=== PATIENT | male | born 1950 | race Caucasian/White ===

== ENCOUNTER 2019-09-08 08:28 | Outpatient (CLI) | payer MEDICARE, SELFPAY ==
--- NOTE | 2019-09-08 | EST_ITS ---
Patient Info Name: Derrek Rhoades Age: 68 years : 1950 Gender: Male Ht: 71 in Wt: 245 lbs BSA: 2.40 m2 Exam Date: 09/08/2019 9:35 AM Exam Location: [facility] Stress Patient Status: Outpatient Admit Date: 09/08/2019 Staff Ordering Physician: Doreen, Clarke Lyons MD Attending Provider: Doreen, Clarke Lyons MD Exercise Technologist: Karol Wilson RDCS Exercise Physician: Luis Fernando Montano DO Exam Type: CA stress cory w NM Study Info Indications Z01.818 - Encounter for other preprocedural examination R06.02 - Shortness of breath A regadenoson stress test was performed. Summary 1. 1. Negative lexiscan stress test for ischemic ST changes by ECG criteria. 2. 2. Stable hemodynamics throughout the test. 3. 3. Nuclear scan to follow and will be reported separately. Please correlate with it. 4. 4. Patient informed of the above results. Protocol: Lexiscan Stress ECG Details Stage: REST Duration (min): 4 min : 35 sec HR (bpm): 53 SBP (mmHg): 103 DBP (mmHg): 65 Stage: REST Duration (min): 9 min : 38 sec HR (bpm): 53 SBP (mmHg): 103 DBP (mmHg): 65 Stage: STAGE 1 Duration (min): 1 min : 0 sec HR (bpm): 58 SBP (mmHg): 126 DBP (mmHg): 73 Stage: RECOVERY Duration (min): 1 min : 0 sec HR (bpm): 66 SBP (mmHg): 111 DBP (mmHg): 66 Stage: RECOVERY Duration (min): 2 min : 0 sec HR (bpm): 61 SBP (mmHg): 111 DBP (mmHg): 66 Stage: RECOVERY Duration (min): 3 min : 0 sec HR (bpm): 61 SBP (mmHg): 112 DBP (mmHg): 62 Stage: RECOVERY Duration (min): 3 min : 4 sec HR (bpm): 60 SBP (mmHg): 112 DBP (mmHg): 62 Rest HR: 53 bpm Peak HR: 66 bpm Rest Sys BP: 103 mmHg Peak Sys BP: 126 mmHg Max Pred HR: 154 bpm % Max Pred HR: 43 % Target HR: 131 bpm Max RPP: 8,316 bpm*mmHg Termination Reason: Completed protocol Cardiac Symptoms: Shortness of breath Total Time: 1 min : 0 sec Rest Koch BP: 65 mmHg Peak Koch BP: 73 mmHg Total Dose: 0.4 mg Resting ECG Sinus bradycardia, ST elevation in diffuse leads- probably early repolarization abnormality. Stress ECG No ST changes. Arrhythmias None. Report Signatures
--- NOTE | ~2019-09-08 | NM_ITS ---
EXAMINATION: NM cory stress w perfusion DATE: 09/08/2019 11:22 INDICATION: Shortness of breath TECHNIQUE: Rest images were obtained following intravenous administration of 9.8 mCi Tc99m tetrofosmi n (Myoview). The patient was infused intravenously with Lexiscan (Regadenoson). Then, 29.8 mCi Tc99m tetrofosmin (Myoview) was administered intravenously, and stress images were obtained. Data was recon structed into short axis and horizontal and vertical long axis SPECT images. Gated SPECT images were also obtained. COMPARISON: None. FINDINGS: There is no definite reversible or fixed perfusion abnormality to suggest ischemia or infar ction. There is normal left ventricular chamber size, wall motion and ejection fraction. Left ventr icular ejection fraction measures >70%. IMPRESSION: 1. Normal myocardial perfusion at rest and during stress. 2. Left ventricular ejection fraction measuring >70%. Reviewed, dictated and finalized at location A.
== END 2019-09-08 08:29 | disposition home or self-care (01) ==
PROVIDERS: PCP Internal Medicine; Visit Provider Orthopaedic Surgery
DX: Z01.818 Encounter for other preprocedural examination (principal); R06.02 Shortness of breath
CPT/HCPCS: 78452; 93017; A9502; J2785

== ENCOUNTER 2020-01-15 11:02 | Emergency (ER) | payer MEDICARE, SELFPAY ==
--- NOTE | ~2020-01-15 | XR_ITS ---
EXAMINATION: XR ribs RT 2V w CXR 2V DATE: 01/15/2020 11:25 INDICATION: Right chest pain. Fall. TECHNIQUE: Frontal and lateral views of the chest and 3 views of the right ribs were obtained. COMPARISON: Chest single view 02/18/2014, chest CT 07/29/2017 FINDINGS: CHEST TWO VIEWS: There is mild atelectasis in left lower lung zone. No pleural effusion or pneumothor ax. The heart size is normal. There are changes of posterior fusion procedure in thoracolumbar spine. Epidural electrodes are noted. There is a filter in the inferior vena cava. A catheter overlies the spine. RIGHT RIBS: There is a fracture of right sixth rib. IMPRESSION: 1. Right sixth rib fracture. Reviewed, dictated and finalized at location A.
[2020-01-15 11:14] VITALS: BP 115/57; PULSE 65; RESP 20; TEMP 36.7; O2SAT 99
--- NOTE | 2020-01-15 11:19 | ED.GENADULT ---
HPI - General Adult General Chief complaint: Extremity Injury, Lower Stated complaint: Fell rib pain Time Seen by Provider: 01/15/20 11:20 Source: patient and RN notes reviewed Mode of arrival: ambulatory Limitations: no limitations History of Present Illness HPI narrative: 39-year-old male presents with complaint of right rib cage pain caused by tripping over his dog and falling for the past 4 days. Derrek says he tripped over his dog hitting RT side and pain has increased throughout the last 24 hours after coughing. No treatment. Denies difficulty breathing or cough. No bruising. No deformity. Exacerbating factors consist of taking a deep breath. Relieving factor consist of resting. No cardiac chest pain, wheezing, or shortness of breath. Denies hitting head or loss consciousness. Denies syncopal, abdominal pain, nausea, and vomiting. Tolerating intake well. Remains active. The patient reports he have not been diagnosed with COVID-19. The patient reports he is not waiting for the results of a COVID-19 lab test. The patient reports he do not have fever, chills, weakness, or fatigue. The patient reports he do not have a new or worsening cough or shortness of breath. The patient reports he do not have any rhinorrhea, congestion, loss of taste, sore throat, and diarrhea. Denies recent traveling. Denies concerns for COVID-19 or exposures been home with limited outdoor exposure except for essential household needs and return home. At this time, patient is not suspected of having COVID-19. Some parts of this dictation were generated by voice recognition software and may contain typographical and/or grammatical inaccuracies. Related Data Home Medications Medication Instructions Recorded Confirmed warfarin 4 mg tablet 4 mg PO .QOD tablet 04/19/19 01/08/20 baclofen 10 mg PO PRN 01/15/20 01/15/20 Allergies Allergy/AdvReac Type Severity Reaction Status Date / Time morphine AdvReac Severe Nausea and Verified 01/08/20 09:20 Vomiting adhesive tape AdvReac Intermediate SKIN TURNS Verified 01/08/20 09:20 RED Review of Systems Review of Systems: Narrative: CONSTITUTIONAL: Denies fever, chills, sweats. EYES: Denies visual changes, redness, discharge. ENT: Denies rhinorrhea, congestion, sore throat, otalgia. CARDIOVASCULAR: Denies chest pain, palpitations, edema. RESPIRATORY: Denies dyspnea, wheezing, cough. GASTROINTESTINAL: Denies abdominal pain, nausea, vomiting, diarrhea. GENITOURINARY: Denies dysuria, hematuria, abnormal discharge. SKIN: Denies rash or itching. MUSCULOSKELETAL: Denies acute back pain, joint pain, myalgia. Complains of acute right rib cage tenderness. NEUROLOGIC: Denies numbness or focal weakness. PSYCHIATRIC: Denies anxiety or depression. All systems reviewed & are unremarkable except as noted in HPI and below. FOR[facility]LY [facility] Past Medical History Medical History (Updated 01/16/20 @ 00:00 by [facility]) Dorsalgia History of pulmonary embolism Hx of colonic polyp Hyperlipidemia Hypertension MILO (obstructive sleep apnea) Other pulmonary embolism without acute cor pulmonale Type 2 diabetes mellitus Surgical History Surgical History (Updated 01/15/20 @ 11:31 by ALYSE Hutson) History of back surgery History of knee surgery RT arthroplasty Family History Family History (Updated 01/15/20 @ 11:32 by ALYSE Hutson) Father , @67 from [place] Acute myocardial infarction Patient's father is Diabetes mellitus Mother Family history of malignant neoplasm Patient's mother is Family history of arthritis Sibling Malignant neoplasm of prostate Social History Social History (Updated 01/15/20 @ 11:32 by ALYSE Hutson) Smoking packs per day: 1 Smoking cigarettes per day: 20.0 Years smoked: 20 Smoking pack-years: 20.00 Smoking status: Former smoker Tobacco type: cigarettes Second hand tobacco smoke
== END 2020-01-15 11:46 | disposition home or self-care (01) ==
PROVIDERS: Emergency Provider Nurse Practitioner Family; PCP Internal Medicine
DX: S22.31XA Fracture of one rib, right side, initial encounter for closed fracture (principal); W01.0XXA Fall on same level from slipping, tripping and stumbling without subsequent striking against object, initial encounter; E78.5 Hyperlipidemia, unspecified; I10 Essential (primary) hypertension; G47.33 Obstructive sleep apnea (adult) (pediatric); E11.9 Type 2 diabetes mellitus without complications; Z86.711 Personal history of pulmonary embolism; Z87.891 Personal history of nicotine dependence; Z79.01 Long term (current) use of anticoagulants
CPT/HCPCS: 71046; 71100; 99213; G0463

== ENCOUNTER 2020-05-30 11:50 | Outpatient (CLI) | payer MEDICARE, SELFPAY | END 2020-05-30 11:51 | disposition home or self-care (01) | LOC: ANHCOVIDVC 11:51 | PROVIDERS: PCP Internal Medicine | DX: Z23 Encounter for immunization (principal) | CPT/HCPCS: 0001A; 91300 ==

== ENCOUNTER 2020-06-20 11:41 | Outpatient (CLI) | payer MEDICARE, SELFPAY | END 2020-06-20 11:42 | disposition home or self-care (01) | LOC: ANHCOVIDVC 11:41 | PROVIDERS: PCP Internal Medicine | DX: Z23 Encounter for immunization (principal) | CPT/HCPCS: 0002A; 91300 ==

== ENCOUNTER → 2021-01-14 04:14 | Outpatient (CLI) | payer MEDICARE, SELFPAY ==
[2021-01-14 11:21] LABS: Influenza Control Positive
[2021-01-15 19:26] LABS: SARS-CoV-2 RNA PCR Negative
== END ==
PROVIDERS: PCP Internal Medicine; Visit Provider Internal Medicine
DX: Z20.822 Contact with and (suspected) exposure to COVID-19 (principal)
CPT/HCPCS: 87804; C9803; U0003; U0005

== ENCOUNTER → 2021-03-03 10:12 | Outpatient (CLI) | payer MEDICARE, SELFPAY ==
[2021-03-03 19:11] LABS: SARS-CoV-2 RNA PCR Positive
== END ==
PROVIDERS: PCP Internal Medicine; Visit Provider Internal Medicine
DX: U07.1 COVID-19 (principal)
CPT/HCPCS: C9803; U0003; U0005

== ENCOUNTER 2021-03-06 07:33 | Outpatient (RCR) | payer MEDICARE, SELFPAY ==
[2021-03-06 08:08] VITALS: BP 132/71; PULSE 51; RESP 16; TEMP 36.2; O2SAT 96
[2021-03-06] MEDS: FAMOTIDINE 20 MG TABLET PO (08:13)
[2021-03-06] MEDS: ACETAMINOPHEN 325 MG TABLET 650 MG PO (08:13)
[2021-03-06] MEDS: diphenhydrAMINE HCl CAP 25 MG CAPSULE PO (08:13)
[2021-03-06 09:44] VITALS: BP 117/72
--- NOTE | 2021-03-07 08:45 | PC.NURSE ---
Called Mr Rhoades, he stated he feels great and has no questions for us.
== END 2021-03-06 17:00 ==
LOC: AMCINF 07:33
PROVIDERS: PCP Internal Medicine; Visit Provider Internal Medicine Hematology & Oncology
DX: U07.1 COVID-19 (principal)
CPT/HCPCS: A9270; M0245; Q0245

== ENCOUNTER 2022-03-10 13:45 | Outpatient (CLI) | payer OTHER, SELFPAY ==
[2022-03-10 14:32] LABS: Influenza A QL RT-PCR Negative (Negative); Influenza B QL RT-PCR Negative (Negative); SARS-CoV-2 RNA PCR Negative
== END 2022-03-10 13:46 | disposition home or self-care (01) ==
LOC: ANHLAB 13:46
PROVIDERS: PCP Internal Medicine; Visit Provider Internal Medicine
DX: R50.9 Fever, unspecified (principal); Z20.822 Contact with and (suspected) exposure to COVID-19
CPT/HCPCS: 87636

== ENCOUNTER 2022-10-12 18:48 | Emergency (ER) | payer OTHER, SELFPAY ==
--- NOTE | ~2022-10-12 | XR_ITS ---
EXAM: XR shoulder RT min 2V DATE: 10/12/2022 19:17 HISTORY: FALL TODAY, LIMITED ROM . COMPARISON: None available. FINDINGS: Normal mineralization. No fracture or dislocation. No lytic or blastic lesion. Moderate AC joint and glenohumeral joint degenerative change. No erosion or periosteal change. Soft tissues with in normal limits. IMPRESSION: No acute osseous finding in the right shoulder. Reviewed, dictated and finalized at location K.
[2022-10-12 19:00] VITALS: BP 151/76; PULSE 70; RESP 20; TEMP 36.9; O2SAT 97
--- NOTE | 2022-10-12 19:25 | ED.UPPEXIN ---
HPI - Extremity Injury (Upper) General Chief Complaint: Extremity Injury, Upper Stated Complaint: right shoulder injury Time Seen by Provider: 10/12/22 19:10 Source: patient, family () and RN notes reviewed Mode of arrival: ambulatory Limitations: no limitations History of Present Illness HPI narrative: Patient presents today complaining of right shoulder pain. He fell while in his garage today around 3:30 p.m. onto an outstretched hand. Denies head injury or loss of consciousness. Denies numbness or tingling in the arm or hand. He currently rates his pain 9/10. He has taken to prescription pain pills from a family member that he does not know the name of, and has applied a pain patch. Related Data Home Medications Medication Instructions Recorded Confirmed melatonin 10 mg tablet 20 mg PO HS PRN Insomnia 10/09/22 10/12/22 rosuvastatin 5 mg tablet 5 mg PO HS 10/09/22 10/12/22 Allergies Allergy/AdvReac Type Severity Reaction Status Date / Time adhesive tape Allergy Intermediate SKIN TURNS Verified 10/09/22 13:53 RED morphine AdvReac Severe Nausea and Verified 10/09/22 13:53 Vomiting Review of Systems Review of Systems: CONSTITUTIONAL: Denies body aches, fever, chills, or sweats. EYES: Denies visual changes, redness, or discharge. ENT: Denies rhinorrhea, congestion, sore throat, or otalgia. CARDIOVASCULAR: Denies chest pain, palpitations, or edema. RESPIRATORY: Denies cough or dyspnea. GASTROINTESTINAL: Denies abdominal pain, nausea, vomiting, or diarrhea. GENITOURINARY: Denies dysuria or hematuria. SKIN: Denies rash, itching, or wounds. MUSCULOSKELETAL: Denies back pain, or myalgia.+ right shoulder pain NEUROLOGIC: Denies headache, numbness, tingling, or weakness. PSYCH: Denies depression or anxiety. FORMERLY [facility] Past Medical History Medical History Dorsalgia History of pulmonary embolism Hx of colonic polyp Hyperlipidemia Hypertension MILO (obstructive sleep apnea) Other pulmonary embolism without acute cor pulmonale Type 2 diabetes mellitus Surgical History Surgical History History of back surgery History of knee surgery RT arthroplasty Family History Family History Father , @67 from [place] Acute myocardial infarction Patient's father is Diabetes mellitus Mother Family history of malignant neoplasm Patient's mother is Family history of arthritis Sibling Malignant neoplasm of prostate Social History Social History Smoking packs per day: 1.5 Smoking cigarettes per day: 30.0 Years smoked: 20 Smoking pack-years: 30.00 Smoking status: Former smoker Tobacco type: cigarettes Second hand tobacco smoke exposure: No Smoking end date: 03/29/99 Alcohol intake: never Substance use: never Substance use type: does not use Lack of Transportation: No Lack of Food: Never True Current Housing: I Have Housing Concerned About Future Housing: No Difficulty Paying Gas/Electric Bills: No Difficulty Paying for Meds: No Currently Unemployed: No Education: Trade/Vocational Certificate Difficulty w/ Childcare or Family Care: No Living arrangements: with family Occupation/Education: retired Gender identity (if verbalized by the patient): Male Sexual Orientation (if Verbalized by the Patient): Straight or Heterosexual Spiritual care concerns: No Comments At time of signature, I have reviewed and agree with nursing past medical, surgical, social and family history unless otherwise noted. Please see nursing chart for further information. There is no relevant family history pertinent to the presenting complaint Exam Narrative: GENERAL: Well-appearing, well-nourished, and
== END 2022-10-12 19:50 | disposition home or self-care (01) ==
PROVIDERS: Emergency Provider Nurse Practitioner; PCP Internal Medicine
DX: S49.91XA Unspecified injury of right shoulder and upper arm, initial encounter (principal); W19.XXXA Unspecified fall, initial encounter; E78.5 Hyperlipidemia, unspecified; I10 Essential (primary) hypertension; E11.9 Type 2 diabetes mellitus without complications; Z86.711 Personal history of pulmonary embolism
CPT/HCPCS: 73030; 99213; G0463

== ENCOUNTER 2022-10-21 02:33 | Day surgery (SDC) | payer OTHER, SELFPAY ==
[2022-10-09 13:46] VITALS: BMI 33.8
--- NOTE | 2022-10-20 20:17 | PM.HPGS ---
History of Present Illness History of Present Illness Consent: Risks, benefits, and alternatives have been discussed and questions answered. Patient agrees to proceed with procedure. Chief complaint: neoplasm screening Narrative: Derrek Rhoades III is a 71 year old male who is referred for colon cancer screening. Review of Systems Review of Systems: All systems reviewed & are unremarkable except as noted in HPI and below PMFSH Past Medical History Medical History Dorsalgia History of pulmonary embolism Hx of colonic polyp Hyperlipidemia Hypertension MILO (obstructive sleep apnea) Other pulmonary embolism without acute cor pulmonale Type 2 diabetes mellitus Surgical History Surgical History History of back surgery History of knee surgery RT arthroplasty Family History Family History Father , @67 from [place] Acute myocardial infarction Patient's father is Diabetes mellitus Mother Family history of malignant neoplasm Patient's mother is Family history of arthritis Sibling Malignant neoplasm of prostate Social History Social History Smoking packs per day: 1.5 Smoking cigarettes per day: 30.0 Years smoked: 20 Smoking pack-years: 30.00 Smoking status: Former smoker Tobacco type: cigarettes Second hand tobacco smoke exposure: No Smoking end date: 03/29/99 Alcohol intake: never Substance use: never Substance use type: does not use Lack of Transportation: No Lack of Food: Never True Current Housing: I Have Housing Concerned About Future Housing: No Difficulty Paying Gas/Electric Bills: No Difficulty Paying for Meds: No Currently Unemployed: No Education: Trade/Vocational Certificate Difficulty w/ Childcare or Family Care: No Living arrangements: with family Occupation/Education: retired Gender identity (if verbalized by the patient): Male Sexual Orientation (if Verbalized by the Patient): Straight or Heterosexual Spiritual care concerns: No Meds Home Medications and Allergies Home Medications Medication Instructions Recorded Confirmed Type citalopram 20 mg tablet See Rx Instructions .Route 12/29/21 10/21/22 Rx .COMPLEX #90 tabs lisinopril 20 mg tablet See Rx Instructions .Route 12/29/21 10/21/22 Rx .COMPLEX #90 tabs metformin 500 mg tablet See Rx Instructions .Route 12/29/21 10/21/22 Rx .COMPLEX #90 tabs warfarin 4 mg tablet See Rx Instructions .Route 05/22/22 10/21/22 Rx .COMPLEX #45 tabs gabapentin 100 mg capsule 100 mg PO QHS #30 caps 08/05/22 10/21/22 Rx alprazolam 0.5 mg tablet 0.5 mg PO BID PRN anxiety #180 tabs 09/02/22 10/21/22 Rx baclofen 10 mg tablet 10 mg PO TID PRN back pain #135 10/06/22 10/21/22 Rx tabs melatonin 10 mg tablet 20 mg PO HS PRN Insomnia 10/09/22 10/21/22 History rosuvastatin 5 mg tablet 5 mg PO HS 10/09/22 10/21/22 History naloxone 4 mg/actuation nasal 4 mg intranasal Q3M PRN opioid 10/12/22 10/21/22 Rx spray (Narcan) overdose #2 ea tramadol 50 mg tablet 50 mg PO Q6H PRN pain #10 tabs 10/12/22 10/21/22 Rx Allergies Allergy/AdvReac Type Severity Reaction Status Date / Time adhesive tape Allergy Intermediate SKIN TURNS Verified 10/21/22 10:18 RED morphine AdvReac Severe Nausea and Verified 10/21/22 10:18 Vomiting Exam Resp: Auscultation: clear to auscultation bilaterally Cardio: Rate: regular rate Rhythm: regular rhythm GI: GI Palp: Yes Soft to palpation and No Tenderness to palpation present (GI) Assessment and Plan Assessment and plan (1) Colon cancer screening: Code(s): Z12.11 - Encounter for screening for malignant neoplasm of colon Status: Acute Assessment and Plan: Colonoscopy with pos
[2022-10-21 10:21] VITALS: BP 125/83; PULSE 88; RESP 17; TEMP 36.4; O2SAT 95; BMI 32.5
[2022-10-21] MEDS: LACTATED RINGERS 1,000 ML 150 ML IV CONT (10:34)
[2022-10-21 10:35] LABS: Glucose Point of Care 149 mg/dl (65-105)
--- NOTE | 2022-10-21 11:00 | WPDANESEPPF ---
Anes - Initial Pre Proc Eval Procedure: Operation Date: 10/21/22 11:30 Proposed Procedures p Screening Colonoscopy - Shaheed Alvarado MD Date/Time: 10/21/22 11:00 Surgeon: Shaheed Alvarado MD Pre Op Diagnosis: neoplasm screening Patient Data Age: 71 Gender: M Height: 1.8 m Weight: 105.8 kg Last Vital Signs Temp 97.6 F 10/21/22 10:21 Pulse 88 10/21/22 10:21 Resp 17 10/21/22 10:21 BP 125/83 10/21/22 10:21 Pulse Ox 95 10/21/22 10:21 O2 Del Method Room Air 10/21/22 10:21 Allergies Allergy/AdvReac Type Severity Reaction Status Date / Time adhesive tape Allergy Intermediate SKIN TURNS Verified 10/21/22 10:18 RED morphine AdvReac Severe Nausea and Verified 10/21/22 10:18 Vomiting Home Medications Medication Instructions Recorded Confirmed Type citalopram 20 mg tablet See Rx Instructions .Route 12/29/21 10/21/22 Rx .COMPLEX #90 tabs lisinopril 20 mg tablet See Rx Instructions .Route 12/29/21 10/21/22 Rx .COMPLEX #90 tabs metformin 500 mg tablet See Rx Instructions .Route 12/29/21 10/21/22 Rx .COMPLEX #90 tabs warfarin 4 mg tablet See Rx Instructions .Route 05/22/22 10/21/22 Rx .COMPLEX #45 tabs gabapentin 100 mg capsule 100 mg PO QHS #30 caps 08/05/22 10/21/22 Rx alprazolam 0.5 mg tablet 0.5 mg PO BID PRN anxiety #180 tabs 09/02/22 10/21/22 Rx baclofen 10 mg tablet 10 mg PO TID PRN back pain #135 10/06/22 10/21/22 Rx tabs melatonin 10 mg tablet 20 mg PO HS PRN Insomnia 10/09/22 10/21/22 History rosuvastatin 5 mg tablet 5 mg PO HS 10/09/22 10/21/22 History naloxone 4 mg/actuation nasal 4 mg intranasal Q3M PRN opioid 10/12/22 10/21/22 Rx spray (Narcan) overdose #2 ea tramadol 50 mg tablet 50 mg PO Q6H PRN pain #10 tabs 10/12/22 10/21/22 Rx Laboratory Tests 10/21/22 10:27 POC Capillary Glucose 149 H mg/dl (65-105) Patient hx anesthesia problems: none Family hx anesthesia problems: none Results Review: All pre-operative results and documents have been reviewed as part of the pre-operative evaluation. FORMERLY [facility] Past Medical History Medical History Dorsalgia History of pulmonary embolism Hx of colonic polyp Hyperlipidemia Hypertension MILO (obstructive sleep apnea) Other pulmonary embolism without acute cor pulmonale Type 2 diabetes mellitus Surgical History Surgical History History of back surgery History of knee surgery RT arthroplasty Family History Family History Father , @67 from [place] Acute myocardial infarction Patient's father is Diabetes mellitus Mother Family history of malignant neoplasm Patient's mother is Family history of arthritis Sibling Malignant neoplasm of prostate Social History Social History Smoking packs per day: 1.5 Smoking cigarettes per day: 30.0 Years smoked: 20 Smoking pack-years: 30.00 Smoking status: Former smoker Tobacco type: cigarettes Second hand tobacco smoke exposure: No Smoking end date: 03/29/99 Alcohol intake: never Substance use: never Substance use type: does not use Lack of Transportation: No Lack of Food: Never True Current Housing: I Have Housing Concerned About Future Housing: No Difficulty Paying Gas/Electric Bills: No Difficulty Paying for Meds: No Currently Unemployed: No Education: Trade/Vocational Certificate Difficulty w/ Childcare or Family Care: No Living arrangements: with family Occupation/Education: retired Gender identity (if verbalized by the patient): Male Sexual Orientation (if Verbalized by the Patient): Straight or Heterosexual Spiritual care concerns: No Anes - Eval Final PreProcedure Day of Procedure 10/21/22 11:00 Patient weight: obes
[2022-10-21 11:24] VITALS: BP 97/54; PULSE 70; RESP 17; O2SAT 95
[2022-10-21 11:34] VITALS: BP 102/76; PULSE 64; RESP 17; O2SAT 93
[2022-10-21 11:44] VITALS: BP 106/73; PULSE 66; RESP 21; O2SAT 96
--- NOTE | 2022-10-21 11:46 | SUR.PHASEII ---
Pt to restart coumadin today per Dr. Alvarado
== END 2022-10-21 11:56 | disposition home or self-care (01) ==
PROVIDERS: PCP Internal Medicine; Visit Provider Internal Medicine Gastroenterology
PROC: 0DJD8ZZ Inspection of Lower Intestinal Tract, Via Natural or Artificial Opening Endoscopic (ICD-10-PCS; CPT 45378; principal; 2022-10-21 11:30)
DX: Z12.11 Encounter for screening for malignant neoplasm of colon (principal); K57.30 Diverticulosis of large intestine without perforation or abscess without bleeding; K64.8 Other hemorrhoids; Z80.0 Family history of malignant neoplasm of digestive organs; I10 Essential (primary) hypertension; E78.5 Hyperlipidemia, unspecified; E11.9 Type 2 diabetes mellitus without complications; G47.33 Obstructive sleep apnea (adult) (pediatric); Z86.711 Personal history of pulmonary embolism; Z87.891 Personal history of nicotine dependence; E66.9 Obesity, unspecified; Z68.32 Body mass index [BMI] 32.0-32.9, adult; Z79.84 Long term (current) use of oral hypoglycemic drugs; Z79.01 Long term (current) use of anticoagulants
CPT/HCPCS: G0105; 82948; J2704; J7120

== ENCOUNTER → 2023-02-05 10:20 | Outpatient (CLI) | payer OTHER, SELFPAY ==
--- NOTE | ~2023-02-05 | CT_ITS ---
EXAMINATION: CT lumbar spine wo con DATE: 02/05/2023 10:34 INDICATION: Lumbar radicular pain. TECHNIQUE: Computed tomography (CT) of the lumbar spine was performed without intravenous contrast. A utomated exposure control and iterative reconstruction technique were employed. The dose-length produ ct was 938.72 mGy-cm. COMPARISON: Lumbar spine CT 12/27/2018 FINDINGS: There is a 3 mm stone in right kidney. There is a 5 mm stone in right renal pelvis. There i s mild right hydronephrosis and proximal hydroureter. There is an 8 mm stone in proximal right ureter . There is a filter in the inferior vena cava. There is 9 degrees levocurvature of lumbar spine. Ther e are changes of posterior fusion procedure from the thoracic spine to the sacrum and iliac bones. Th ere is a chronic burst fracture of L5 with 3/5 loss of height. There is severely decreased disc heigh t at T12-L1, moderately decreased disc height at L1-L2, and severely decreased disc height from L2-L3 through L5-S1. There is interbody fusion at L3-L4 and L4-L5. There is an intrathecal catheter with t ip at L2. Epicardial electrodes are noted. The following disc levels are specifically discussed: T12-L1: The disc is bulging. There is mild lateral facet joint hypertrophy. There is mild bilateral n eural foraminal stenosis. There is mild central canal stenosis. L1-L2: The disc is bulging. There is mild bilateral facet joint hypertrophy. There is moderate bilate ral neural foraminal stenosis. There is mild central canal stenosis. L2-L3: The disc is bulging. There is mild bilateral facet joint hypertrophy. There is mild bilateral neural foraminal stenosis. There is mild central canal stenosis. L3-L4: There is mild bilateral facet joint hypertrophy. There is moderate bilateral neural foraminal stenosis. There is mild central canal stenosis. L4-L5: There is mild bilateral facet joint hypertrophy. There is mild bilateral neural foraminal sten osis. There is mild central canal stenosis. L5-S1: The disc is bulging. There is mild bilateral facet joint osteoarthritis. There is no neural fo raminal stenosis. There is mild central canal stenosis. IMPRESSION: 1. 8 mm stone in proximal right ureter with mild right hydronephrosis and hydroureter. 2. Posterior fusion procedure from thoracic spine to the sacrum and iliac bones. 3. Severe lumbar spondylosis. Reviewed, dictated and finalized at location E. SCALER IMPRESSION: 1. 8 mm stone in proximal right ureter with mild right hydronephrosis and hydro ureter. 2. Posterior fusion procedure from thoracic spine to the sacrum and iliac bones . 3. Severe lumbar spondylosis.
== END ==
PROVIDERS: PCP Nurse Practitioner Family; Visit Provider Nurse Practitioner Family
DX: M54.16 Radiculopathy, lumbar region (principal); N20.1 Calculus of ureter; Z98.1 Arthrodesis status; M43.06 Spondylolysis, lumbar region
CPT/HCPCS: 72131

== ENCOUNTER 2023-03-11 07:12 | Outpatient (CLI) | payer OTHER, SELFPAY ==
[2023-03-11 08:25] LABS: INR 1.2; Prothrombin Time 15.3 Seconds (11.1-14.7)
== END 2023-03-11 07:13 | disposition home or self-care (01) ==
LOC: ANHLAB 07:24
PROVIDERS: PCP Nurse Practitioner Family; Visit Provider Pain Medicine Pain Medicine
DX: Z79.01 Long term (current) use of anticoagulants (principal)
CPT/HCPCS: 36415; 85610

== ENCOUNTER 2023-03-18 14:34 | Outpatient (CLI) | payer OTHER, SELFPAY ==
--- NOTE | ~2023-03-18 | XR_ITS ---
EXAM: XR abdomen/kub 1V DATE: 03/18/2023 15:02 HISTORY: RIGHT URETERAL STONE . COMPARISON: CT abdomen pelvis same date; 08/26/2016. FINDINGS: IVC filter. Abandoned catheter over the right abdomen. Partially visualized extensive thora columbar fusion hardware. Stimulator pack to the right of midline, leads terminating over the lower t horacic spine. Clear lung bases. Normal bowel gas pattern. No organomegaly. 8 x 11 mm calcification p rojecting over the proximal right ureter. Extensive degenerative changes in the lumbar spine with fus ions. Mild bilateral hip osteoarthritis. IMPRESSION: 8 x 11 mm proximal right ureteral stone. Reviewed, dictated and finalized at location K. [facility]
--- NOTE | ~2023-03-18 | CT_ITS ---
EXAMINATION: CT abdomen pelvis wo con DATE: 03/18/2023 14:54 INDICATION: Right ureteral stone TECHNIQUE: Computed tomography (CT) of the abdomen and pelvis was performed without intravenous contr ast. Automated exposure control and iterative reconstruction technique were employed. Exam dose: 133 4.39 mGy-cm total exam DLP. COMPARISON: 08/26/2016 KUB 02/16/2014 CT abdomen with IV contrast FINDINGS: Minimal bilateral gynecomastia. The included lower lung zones are clear of infiltrate or co nsolidation. Heart size is within normal range. No pericardial effusion. Coronary artery calcificatio ns and thoracic and abdominal aortic calcification noted in addition to prominent calcification at th e origins of the renal arteries. There is an IVC filter situated just beneath the level of the renal veins. The liver, spleen, pancreas, and adrenal glands are unremarkable. The gallbladder is contracted. No b ile duct or pancreatic duct dilatation. No renal mass lesion is evident on this limited noncontrast examination. Approximately 4.5 x 5.7 x 9.4 mm obstructing lower pole right renal calculus with attenuation of appr oximately 1260 Hounsfield units. There are large proximal right ureteral calculus at the L3 level, measuring up to approximately 7.2 m m width and 15 mm length. There is associated moderately prominent right pelviectasis and hydronephro sis. No suspicious renal mass lesion is evident on this limited noncontrast examination. There is evidence of some scarring in particular at the lateral aspect of the lower pole the right kidney and to a les ser extent left kidney. There is atherosclerotic calcification but no aneurysm of the abdominal aorta and iliac and femoral a rteries. No intraperitoneal or retroperitoneal or pelvic mass lesion or adenopathy or ascites is noted. The urinary bladder is unremarkable. Minimal prostate gland calcification. There are numerous diverticula of the sigmoid colon; no CT evidence of diverticulitis. No bowel obstr uction, bowel wall thickening, pneumatosis or intraperitoneal free air is detected. Status post posterior fusion by pedicle screws and rods likely chronic T10 and T11 anterior wedge com pression deformities neurostimulator battery pack with lead extending into lower thoracic spinal ana l. There is a small fluid pocket at a prior neurostimulator battery packs location at the right lower an terior abdominal wall. IMPRESSION: Large obstructing proximal right ureteral calculus with moderately prominent right pelvi ectasis and hydronephrosis Lower pole right renal nonobstructing calculus Sigmoid colon diverticulosis IVC filter Status post posterior thoracolumbar surgical fusion Reviewed, dictated and finalized at [facility]. Reviewed, dictated and finalized at location A. TECH IMPRESSION: Large obstructing proximal right ureteral calculus with moderately prominent right pelviectasis and hydronephrosis Lower pole right renal nonobstructing calculus Sigmoid colon diverticulosis IVC filter Status post posterior thoracolumbar surgical fusion
== END 2023-03-18 14:35 | disposition home or self-care (01) ==
PROVIDERS: PCP Internal Medicine; Visit Provider Urology
DX: N20.0 Calculus of kidney (principal); N13.30 Unspecified hydronephrosis; K57.30 Diverticulosis of large intestine without perforation or abscess without bleeding; Z95.828 Presence of other vascular implants and grafts; Z98.1 Arthrodesis status
CPT/HCPCS: 74018; 74176

== ENCOUNTER 2023-04-12 09:01 | Outpatient (CLI) | payer OTHER, SELFPAY ==
--- NOTE | 2023-04-12 09:50 | ECG_ITS ---
Measurements Intervals Hen[place] Rate: 46 P: 66 NE: 180 QRS: -23 QRSD: 105 T: 29 QT: 426 QTc: 376 Interpretive Statements SINUS BRADYCARDIA ABNORMAL ECG NO PREVIOUS ECG AVAILABLE FOR COMPARISON Electronically Signed On 04-12-2023 11:17:05 AUTO PARTS PROFESSIONAL by Luis Fernando Montano D.O.
[2023-04-12 09:56] LABS: Anion Gap 5 mmol/L (8-16); Blood Urea Nitrogen 15 mg/dL (9-20); Calcium 9.4 mg/dL (8.4-10.2); Carbon Dioxide 31 mmol/L (22-30); Chloride 105 mmol/L (98-107); Estimated Glomerular Filt Rate > 60; Glucose 108 mg/dL (65-110); Sodium 141 mmol/L (137-145)
[2023-04-12 09:58] LABS: INR 1.2; Prothrombin Time 15.9 Seconds (11.1-14.7)
[2023-04-12 09:59] LABS: Partial Thromboplastin Time 27.4 SECONDS (22.3-36.8)
== END 2023-04-12 09:02 | disposition home or self-care (01) ==
LOC: ANHLAB 09:02
PROVIDERS: Anesthesiology; PCP Internal Medicine; Visit Provider Urology
DX: Z01.818 Encounter for other preprocedural examination (principal); R94.31 Abnormal electrocardiogram [ECG] [EKG]; N20.1 Calculus of ureter; E11.9 Type 2 diabetes mellitus without complications; I10 Essential (primary) hypertension
CPT/HCPCS: 36415; 80048; 85610; 85730; 87086; 93005

== ENCOUNTER 2023-04-12 10:49 | Outpatient (CLI) | payer OTHER, SELFPAY ==
--- NOTE | ~2023-04-12 | CT_ITS ---
EXAMINATION: CT thoracic spine wo con DATE: 04/12/2023 11:05 INDICATION: Dorsopathy, unspecified. TECHNIQUE: Computed tomography (CT) of the thoracic spine was performed without intravenous contrast. Automated exposure control and iterative reconstruction technique were employed. The dose-length pro duct was 1093.77 mGy-cm. COMPARISON: Chest CT 05/16/2014 FINDINGS: There is 6 degrees levocurvature of upper thoracic spine. There is mild chronic height loss of T3, T4, T6, T7, T9, and T12 vertebral bodies. There is a chronic compression fracture of T11 with 1/5 loss of height. There are changes of posterior fusion procedure from T10 to the lumbar spine and sacrum and iliac bones. The right T11 and T12 screws are broken. No periscrew lucency to suggest loo sening or infection. The T10 screws breach the superior endplate. There is moderately decreased disc height at T4-T5, mildly decreased disc height at T5-T6 and T6-T7, and severely decreased disc height at T9-T10 and T12-L1. There are epidural electrodes at T9. There is multilevel mild to moderate facet joint osteoarthritis. There is multilevel mild neural foraminal stenosis bilaterally. On the right, there is moderate neural foraminal stenosis at T2-T3 and T4-T5. There is mild central canal stenosis at T4-T5, T5-6, T6-T7, T7-T8, T8-T9, T11-T12, and T12-L1. There is a filter in the inferior vena cava . IMPRESSION: 1. Moderate thoracic spondylosis. 2. Posterior fusion procedure from T10 to the lumbar spine and sacrum and iliac bones. Broken right T 11 and T12 screws. Reviewed, dictated and finalized at location E. LE DEPARTMENT WORKER IMPRESSION: 1. Moderate thoracic spondylosis. 2. Posterior fusion procedure from T10 to the lumbar spine and sacrum and iliac bones. Broken right T11 and T12 screws.
== END 2023-04-12 10:50 ==
PROVIDERS: PCP Nurse Practitioner Family; Visit Provider Nurse Practitioner Family
DX: M43.04 Spondylolysis, thoracic region (principal); T84.296A Other mechanical complication of internal fixation device of vertebrae, initial encounter; Y82.8 Other medical devices associated with adverse incidents; Z98.1 Arthrodesis status
CPT/HCPCS: 72128

== ENCOUNTER 2023-04-16 00:39 | Day surgery (SDC) | payer OTHER, SELFPAY ==
[2023-04-08 12:59] VITALS: BMI 34.8
--- NOTE | 2023-04-08 13:36 | PC.NURSE ---
Report to the Outpatient Waiting Room, entrance under the green pavilion located off [facility], at time _6:30AM on date __04/16/23 . Planned Procedure Time: __8:30AM . Time changes happen often and if your time is changed the preop area will call you the afternoon before. - You and your visitor will be asked to self-screen and do not enter if you have any COVID symptoms. - A mask is optional within the hospital at this time. Patients may have clear liquids (water, carbonated beverages, clear teas, apple juice) until 3 hours prior to surgery with a maximum of 20 ounces. - No food from midnight until time of surgery. Take the following medications with a SIP of water the morning of surgery: ___ALPRAZOLAM & HYDROCODONE NEEDED DO NOT STOP ANY OF YOUR OTHER PRESCRIPTION MEDICATIONS PRIOR TO SURGERY ?EXCEPT THE FOLLOWING Medications to discontinue per physician __HOLD COUMADIN 7 DAYS PRE-OP PER DR GARZA PER PATIENT/- LAST DOSE 04/08/23 HOLD ALL VITAMINS/SUPPLEMENTS 3 DAYS PRE-OP PER ANESTHESIA- LAST DOSE 04/12/23 Please no make-up, nail japanese, hairspray, perfume, deodorant, or body powder the day of surgery. No jewelry (including any body piercings) or valuables the day of surgery, leave them at home. Please take a shower or bath the night before, or the morning of, surgery with an antibacterial soap. Wear comfortable, loose fitting clothing. - Jewelry must be removed prior to entering the operating room. Rings and piercings that are not removed may be cut off. - The hospital will not accept responsibility for valuables. - Please leave all valuables, including medications, at home the day of surgery. If you are going home after surgery, a licensed lyft driver must drive you home. - NO public transportation without another adult if you receive anesthesia. - We recommend that an adult stay with you for 24 hours following discharge. - We also recommend that you do not drive, make important decision, drink alcoholic beverages, or take any drugs that were not prescribed by your health care provider for at least 24 hours after your discharge time. Follow any additional instructions given to you from your surgeon. If you or anyone in your household have experienced Covid symptoms in the past week, please notify your surgeon or the nurse liaison at the phone number below for possible testing. Telephone instructions given to __PATIENT & WIFE and asked if any additional questions and then verbalized understanding. Patient advised to call surgeon office or pre surgery nurse liaison [phone] if any additional questions.
[2023-04-16] VITALS (7 sets, daily range): BP systolic 126–143; BP diastolic 50–85; PULSE 52–65; RESP 12–19; TEMP 36.1–36.6; O2SAT 96–100
--- NOTE | ~2023-04-16 | XR_ITS ---
EXAMINATION: XR abdomen/kub 1V DATE: 04/16/2023 06:39 INDICATION: Right ureteral stone. TECHNIQUE: A supine view of the abdomen on 3 radiographs was obtained. COMPARISON: Abdomen radiographs 03/18/2023, CT abdomen and pelvis 03/18/2023 FINDINGS: There are no dilated loops of bowel. Epidural electrodes are noted. There are changes of po sterior fusion procedure involving the thoracic and lumbar spine, sacrum, and iliac bones. An intrath ecal catheter is noted. There is an 8 mm stone in proximal right ureter at L3. IMPRESSION: 1. 8 mm stone in proximal right ureter. Reviewed, dictated and finalized at location E. URCE MANAGEMENT SPECIALIST
--- NOTE | ~2023-04-16 | XR_ITS ---
EXAMINATION: XR retrograde pyelo w/stent RT DATE: 04/16/2023 09:54 INDICATION: Right ureteral stone. TECHNIQUE: 2 intraoperative spot fluoroscopic views of the abdomen and pelvis were obtained. I was no t present. Fluoroscopy exposure time was 41 seconds. COMPARISON: Abdomen radiographs 04/16/2023 FINDINGS: The right-sided retrograde pyelogram demonstrates moderate hydronephrosis. There is a right internal ureteral stent in expected position. There are changes of posterior fusion procedure in the spine. Epidural electrodes are noted. A catheter overlies the spine. IMPRESSION: 1. Right internal ureteral stent in expected position. Reviewed, dictated and finalized at location E. NESS CONTROL MANAGER
[2023-04-16] MEDS: LACTATED RINGERS 1,000 ML 30 ML IV CONT ×2 (07:00→10:42)
[2023-04-16 07:17] LABS: Glucose Point of Care 109 mg/dl (65-105)
[2023-04-16 08:00] LABS: INR 1.1; Prothrombin Time 14.5 Seconds (11.1-14.7)
[2023-04-16 08:02] LABS: Partial Thromboplastin Time 26.3 SECONDS (22.3-36.8)
--- NOTE | 2023-04-16 08:08 | WPDHPUPDATE1 ---
History and Physical Update Update Date/Time: 04/16/23 08:08 History and Physical has been reviewed, including an updated exam of the patient. There are NO changes in the patient's condition. Risks, benefits, and alternatives have been discussed and questions answered. Patient agrees to proceed with procedure. Stone is obscured by the tens unit. Will switch to cystoscopy, right retrograde, right ureteroscopy with laser, stent placement.
--- NOTE | 2023-04-16 08:39 | WPDANESEPPF ---
Anes - Initial Pre Proc Eval Procedure: Operation Date: 04/16/23 08:30 Proposed Procedures p Right Extracorporeal Shock Wave Lithotripsy, - Yevgeniy Hercules MD s Cystoscopy, Right Stent Placement - Yevgeniy Hercules MD Date/Time: 04/16/23 08:39 Surgeon: Yevgeniy Hercules MD Pre Op Diagnosis: right ureteral stone Patient Data Age: 72 Gender: M Height: 1.75 m Weight: 103.7 kg Last Vital Signs Temp 97.8 F 04/16/23 07:00 Pulse 52 L 04/16/23 07:00 Resp 14 04/16/23 07:00 BP 133/68 04/16/23 07:00 Pulse Ox 96 04/16/23 07:00 O2 Del Method Room Air 04/16/23 07:00 Allergies Allergy/AdvReac Type Severity Reaction Status Date / Time adhesive tape Allergy Intermediate SKIN TURNS Verified 04/16/23 07:47 RED, WELTS morphine AdvReac Severe Nausea and Verified 04/16/23 07:47 Vomiting Home Medications Medication Instructions Recorded Confirmed Type alprazolam 0.5 mg tablet 0.5 mg PO BID PRN anxiety #180 tabs 09/02/22 04/08/23 Rx melatonin 10 mg tablet 10 mg PO HS PRN Insomnia 10/09/22 04/08/23 History rosuvastatin 5 mg tablet 5 mg PO QAM 10/09/22 04/08/23 History naloxone 4 mg/actuation nasal 4 mg intranasal Q3M PRN opioid 10/12/22 04/08/23 Rx spray (Narcan) overdose #2 ea gabapentin 100 mg capsule 100 mg PO QHS #90 caps 10/28/22 04/08/23 Rx baclofen 10 mg tablet 10 mg PO TID PRN Spasms 04/08/23 04/08/23 History calcium carbonate 200 mg calcium 200 mg PO BID PRN Indigestion 04/08/23 04/08/23 History (500 mg) chewable tablet (Tums) citalopram 20 mg tablet 20 mg PO HS 04/08/23 04/08/23 History hydrocodone 5 mg-acetaminophen 325 1 tablet PO Q8H PRN Pain 04/08/23 04/08/23 History mg tablet lisinopril 20 mg tablet 20 mg PO QAM 04/08/23 04/08/23 History metformin 500 mg tablet 500 mg PO QAM 04/08/23 04/08/23 History warfarin 4 mg tablet 4 mg PO QAM 04/08/23 04/16/23 History Laboratory Tests 04/16/23 04/16/23 07:08 07:14 PT 14.5 Seconds (11.1-14.7) INR 1.1 APTT 26.3 SECONDS (22.3-36.8) POC Capillary Glucose 109 H mg/dl (65-105) Patient hx anesthesia problems: none Family hx anesthesia problems: none Results Review: All pre-operative results and documents have been reviewed as part of the pre-operative evaluation. [facility] Past Medical History Medical History Dorsalgia History of pulmonary embolism Hx of colonic polyp Hyperlipidemia Hypertension MILO (obstructive sleep apnea) Other pulmonary embolism without acute cor pulmonale Type 2 diabetes mellitus Surgical History Surgical History History of back surgery History of knee surgery RT arthroplasty Family History Family History Father , @67 [place] Acute myocardial infarction Patient's father is Diabetes mellitus Mother Family history of malignant neoplasm Patient's mother is Family history of arthritis Sibling Malignant neoplasm of prostate Social History Social History Smoking packs per day: 1 Smoking cigarettes per day: 20.0 Years smoked: 35 Smoking pack-years: 35.00 Smoking status: Former smoker Tobacco type: cigarettes Second hand tobacco smoke exposure: No Smoking end date: 03/29/99 Alcohol intake: never Substance use: never Substance use type: does not use Lack of Transportation: No Lack of Food: Never True Current Housing: I Have Housing Concerned About Future Housing: No Difficulty Paying Gas/Electric Bills: No Difficulty Paying for Meds: No Currently Unemployed: No Education: Trade/Vocational Certificate Difficulty w/ Childcare or Family Care: No Living arrangements: with family Additional living arrangements comments: Occupation/[employer]
[2023-04-16] MEDS: ceFAZolin 2 GM/D5W 50 ML 2 GM/50 ML BAG IVPB (08:52)
[2023-04-16] MEDS: LIDOCAINE HCL 2% GEL UROJET 10 ML PKG MUCOUS MEM (09:24)
--- NOTE | 2023-04-16 09:56 | P.OP_ITS ---
Procedure Note - Detailed Date of Procedure 04/16/23 Pre-op Diagnosis right ureteral stone/renal stones Post-op Diagnosis Same Procedure Performed Cystoscopy, right retrograde pyelogram, right ureteroscopy with laser, stone extraction, right ureteral stent placement 4.8 Azerbaijani contour Surgeon Yevgeniy Hercules MD Anesthesia General Description of Procedure Patient is taken to the operative suite correctly identified. Once anesthesia was obtained was placed in dorsal lithotomy position and prepped and draped usual sterile fashion. Nineteen Azerbaijani scope was inserted the bladder. There were no tumors noted. Right ureteral orifice was cannulated with a wire. Ureteral access sheath was placed. The previously noted ureteral stone had been pushed back into the kidney. Using a 200 micron fiber the stone was lasered and dusted. The larger stones were retrieved with an escape basket. Pyelogram was then performed to confirm placement of the stent. 4.8 Azerbaijani contour stent was then placed with the proximal end coiled in the renal pelvis and the distal in the bladder. Bladder was drained. 2% viscous lidocaine was inserted into the urethra patient is taken recovery stable condition. He will follow-up in a week's time for stent removal. This completes dictation. Please send a copy of op note to my office. Estimated Blood Loss 0 Drains Yes Packing No Pathology Yes Complications No immediate complications Condition Stable Disposition PACU
[2023-04-16 10:07] LABS: Glucose Point of Care 146 mg/dl (65-105)
== END 2023-04-16 12:07 | disposition home or self-care (01) ==
PROVIDERS: PCP Internal Medicine; Visit Provider Urology
PROC: (CPT 52352; 2023-04-16 08:30)
DX: N20.2 Calculus of kidney with calculus of ureter (principal); I10 Essential (primary) hypertension; E78.5 Hyperlipidemia, unspecified; E11.9 Type 2 diabetes mellitus without complications; G47.33 Obstructive sleep apnea (adult) (pediatric); Z86.711 Personal history of pulmonary embolism; Z87.891 Personal history of nicotine dependence; E66.9 Obesity, unspecified; Z68.33 Body mass index [BMI] 33.0-33.9, adult; Z79.84 Long term (current) use of oral hypoglycemic drugs; Z79.01 Long term (current) use of anticoagulants; Z79.891 Long term (current) use of opiate analgesic
CPT/HCPCS: 52356; 36415; 74018; 74420; 80048; 82365; 82948; 85610; 85730; 87086; 88300; 93005; C1769; C2617; J0690; J1100; J2250; J2405; J2704; J3010; J7030; J7120; Q9966

== ENCOUNTER 2024-02-29 11:23 | Outpatient (CLI) | payer OTHER, SELFPAY ==
--- NOTE | ~2024-02-29 | XR_ITS ---
XR abdomen/kub 1V Ordering provider: Ag Henry MD History: . lt renal stone FU . Comparison: April 16, 2023 FINDINGS: BOWEL: Nonobstructive bowel gas pattern. ORGANOMEGALY: None. SIGNIFICANT PATHOLOGIC CALCIFICATIONS: Tiny calcification is seen in the left renal area which may be a stone or in the fecal material. Follow-up advised. OTHER: No free air is seen under the diaphragm. Postoperative changes in the lumbar spine and sacrum with spinal stimulator. IMPRESSION: NO ACUTE ABDOMINAL FINDINGS. Possible stone in the left renal area. Reviewed, dictated and finalized at location A. LITY ARCHITECT
== END 2024-02-29 11:24 | disposition home or self-care (01) ==
LOC: ANHIMG 11:28
PROVIDERS: PCP Internal Medicine; Visit Provider Urology
DX: N20.0 Calculus of kidney (principal)
CPT/HCPCS: 74018

== ENCOUNTER 2024-03-13 10:28 | Outpatient (CLI) | payer OTHER, SELFPAY ==
--- NOTE | ~2024-03-13 | CT_ITS ---
EXAMINATION: CT abdomen pelvis wo/w con DATE: 03/13/2024 11:14 INDICATION: Left ureteral stone. TECHNIQUE: Computed tomography (CT) of the abdomen and pelvis was performed without and with intraven ous contrast using a total of 130 mL Omnipaque-350 intravenous contrast with a double-bolus technique for simultaneous opacification of the renal parenchyma and renal collecting system. Automated exposu re control and iterative reconstruction technique were employed. The dose-length product was 1762.62 mGy-cm. COMPARISON: CT abdomen and pelvis 03/18/23 FINDINGS: The visualized portions of the lung bases demonstrate mild atelectasis. No pleural effusion. The hear t size is normal. There are coronary artery calcifications. No pericardial effusion. The liver, gallb ladder, spleen, pancreas, and adrenal glands are normal. There is mild right hydronephrosis and hydro ureter. There is no urolithiasis. There is cortical thinning of right kidney. Right ureter is not wel l opacified. There is a 4 mm mass in distal right ureter. Left ureter is not well opacified distally, but is normal. The bladder is not well distended. The prostate is moderately enlarged. There is dive rticulosis of the colon without evidence of diverticulitis. There are no dilated loops of bowel. The appendix is not visualized. There are no pathologically enlarged lymph nodes. There is no free intrap eritoneal fluid. There is a filter in the inferior vena cava. There is prominent fat in right inguina l canal that may be a hernia. There is an intrathecal catheter. Epidural electrodes are noted. There are changes of posterior fusion procedure from T10 to S1 and the iliac bones. There is severe thoraci c and lumbar spondylosis. There is mild chronic height loss of T12 vertebral body. IMPRESSION: 1. Mild right hydronephrosis and hydroureter with 4 mm mass in distal right ureter that may be inflam mation or urothelial carcinoma. Reviewed, dictated and finalized at location A. ER STACKER IMPRESSION: 1. Mild right hydronephrosis and hydroureter with 4 mm mass in distal right ure ter that may be inflammation or urothelial carcinoma.
[2024-03-13 10:56] LABS: Estimated Glomerular Filt Rate 40
== END 2024-03-13 10:29 | disposition home or self-care (01) ==
LOC: ANHIMG 10:32
PROVIDERS: PCP Internal Medicine; Visit Provider Urology
DX: N13.2 Hydronephrosis with renal and ureteral calculous obstruction (principal); N28.89 Other specified disorders of kidney and ureter
CPT/HCPCS: 74178; Q9967

== ENCOUNTER 2024-03-30 01:33 | Day surgery (SDC) | payer MEDICARE, SELFPAY ==
--- NOTE | 2024-03-27 08:42 | PC.NURSE ---
Report to the Outpatient Waiting Room, entrance under the green pavilion located off [facility], at time _6 am on date _03/30/24 . Planned Procedure Time: 7:30 am .? Time changes happen often and if your time is changed the preop area will call you the afternoon before. - You and your visitor will be asked to self-screen and do not enter if you have any COVID symptoms. Please call surgeon if you need to reschedule. - A mask is optional within the hospital at this time. Patients may have clear liquids (water, carbonated beverages, clear teas, apple juice) until 3 hours prior to surgery ( 4:30 am)with a maximum of 20 ounces. - No food from midnight until time of surgery and no smoking. This includes no chewing gum, candy or mints. Take only the following medications with a SIP of water on the morning of surgery: _ALPRAZOLAM IF NEEDED,GABAPENTIN DO NOT STOP ANY OF YOUR OTHER PRESCRIPTION MEDICATIONS PRIOR TO SURGERY EXCEPT THE FOLLOWING Medications to discontinue per physician __HOLD ALL VITAMINS AND SUPPLEMENTS 3 DAYS PRE OP. LAST DOSE03/26/[address] REYNOLDS Please no make-up, nail ecuadorean, hairspray, perfume, deodorant, or body powder the day of surgery.? No jewelry (including any body piercings) or valuables the day of surgery, leave them at home.? Please take a shower or bath the night before, or the morning of, surgery with an antibacterial soap.? Wear comfortable, loose fitting clothing.? Children are encouraged to wear pajamas. - Jewelry must be removed prior to entering the operating room.? Rings and piercings that are not removed may be cut off. - The hospital will not accept responsibility for valuables.? - Please leave all valuables, including medications, at home the day of surgery. If you are going home after surgery, a licensed driver merchandiser must drive you home.? - NO public transportation without another adult if you receive anesthesia. - We recommend that an adult stay with you for 24 hours following discharge. - We also recommend that you do not drive, make important decision, drink alcoholic beverages, or take any drugs that were not prescribed by your health care provider for at least 24 hours after your discharge time. Follow any additional instructions given to you from your surgeon. Telephone instructions given to _WIFE ALEXY and asked if any additional questions and then verbalized understanding. Patient advised to call surgeon office or pre surgery nurse liaison [phone] if any additional questions.
[2024-03-27 09:10] VITALS: BMI 31.1
[2024-03-30] VITALS (7 sets, daily range): BP systolic 137–172; BP diastolic 72–82; PULSE 43–53; RESP 13–19; TEMP 36.1–36.6; O2SAT 93–100
--- NOTE | ~2024-03-30 | XR_ITS ---
EXAMINATION: XR retrograde pyelo w/stent RT DATE: 03/30/2024 08:36 INDICATION: Right internal ureteral stent placement TECHNIQUE: Fluoroscopic images from a right stent placement are submitted for review. 62 images submi tted for interpretation.. FINDINGS: There is a right double-J internal ureteral stent projecting in expected position, with proximal [place] loop at the level of the renal pelvis and distal loop in the pelvis within the bladder lumen. IMPRESSION: 1. Right internal ureteral stent placement. Please refer to real-time procedural findings for detai ls. Reviewed, dictated and finalized at location A. FACTURING SYSTEMS ENGINEER IMPRESSION: 1. Right internal ureteral stent placement. Please refer to real-time procedu ral findings for details.
[2024-03-30] MEDS: LACTATED RINGERS 1,000 ML 30 ML IV CONT (06:45)
--- NOTE | 2024-03-30 07:02 | P.PNAN_ITS ---
Anes - Initial Pre Proc Eval Procedure: Operation Date: 03/30/24 07:30 Proposed Procedures p Cystoscopy, Right Ureteroscopy, Holmium Laser Lithotripsy, Ureteral Biopsy/ Brushing, Right Retrograde Pyelogram, Possible Ureteral Stent Insertion - Nathaniel Dunlap MD Date/Time: 03/30/24 07:02 Surgeon: Nathaniel Dunlap MD Pre Op Diagnosis: ureteral stone Patient Data Age: 73 Gender: M Height: 1.8 m Weight: 103 kg Last Vital Signs Temp 97.8 F 03/30/24 06:35 Pulse 50 L 03/30/24 06:35 Resp 18 03/30/24 06:35 BP 166/72 H 03/30/24 06:35 Pulse Ox 96 03/30/24 06:35 O2 Del Method Room Air 03/30/24 06:35 Allergies Allergy/AdvReac Type Severity Reaction Status Date / Time adhesive tape Allergy Intermediate SKIN TURNS Verified 03/30/24 06:58 RED, WELTS morphine AdvReac Severe Nausea and Verified 03/30/24 06:58 Vomiting Home Medications ?Medication ?Instructions ?Recorded ?Confirmed ?Type melatonin 10 mg tablet 10 mg PO HS PRN Insomnia 10/09/22 03/27/24 History naloxone 4 mg/actuation nasal 4 mg intranasal Q3M PRN opioid 10/12/22 03/27/24 Rx spray (Narcan) overdose #2 ea calcium carbonate (Tums) 200 mg PO BID PRN Indigestion 04/08/23 03/27/24 History citalopram 20 mg tablet 20 mg PO HS 04/08/23 03/27/24 History rosuvastatin 5 mg tablet 5 mg PO QAM #90 tabs 06/13/23 03/27/24 Rx gabapentin 100 mg capsule 100 mg PO QHS #90 caps 09/17/23 03/27/24 Rx apixaban 5 mg tablet (Eliquis) 5 mg PO BID #60 tabs 01/13/24 03/27/24 Rx baclofen 10 mg tablet 10 mg PO TID PRN back pain #135 02/28/24 03/27/24 Rx tabs lisinopril 20 mg tablet 20 mg PO QAM #90 tabs 02/28/24 03/27/24 Rx alprazolam 0.5 mg tablet 0.5 mg PO BID PRN anxiety #180 tabs 02/29/24 03/27/24 Rx metformin 500 mg tablet 500 mg PO QAM #90 tabs 02/29/24 03/27/24 Rx celecoxib 100 mg capsule 100 mg PO Q12H 03/27/24 03/27/24 History Patient hx anesthesia problems: none Family hx anesthesia problems: none Results Review: All pre-operative results and documents have been reviewed as part of the pre- operative evaluation. [facility] Past Medical History Medical History Hypertension Hyperlipidemia Dorsalgia Hx of colonic polyp History of pulmonary embolism MILO (obstructive sleep apnea) Type 2 diabetes mellitus Other pulmonary embolism without acute cor pulmonale Surgical History Surgical History History of knee surgery RT arthroplasty History of back surgery Family History Family History Father , @67 from [place] Acute myocardial infarction Patient's father is Diabetes mellitus Mother Family history of malignant neoplasm Patient's mother is Family history of arthritis Sibling Malignant neoplasm of prostate Social History Social History Smoking packs per day: 1 Smoking cigarettes per day: 20.0 Years smoked: 35 Smoking pack-years: 35.00 Smoking status: Former smoker Tobacco type: cigarettes Second hand tobacco smoke exposure: No Smoking end date: 03/29/89 Alcohol intake: never Substance use: current Substance use type: does not use Other substance usage details: 3-4 X WK Lack of Transportation: No Lack of Food: Never True Current Housing: I Have Housing Concerned About Future Housing: No Difficulty Paying Gas/Electric Bills: No Difficulty Paying for Meds: No Currently Unemployed: No Education: Trade/Vocational Certificate Difficulty w/ Childcare or Family Care: No Living arrangements: with family Additional living arrangements comments: Occupation/Education: retired Gender identity (if verbalized by the patient): Male Sexual Orientation (if Verbalized by the Patient): Straight or Heterosexual Spiritual care concerns: No Anes - Eval Final PreProcedure Day of Procedure 03/30/24 07:02 Patient weight: obese Heart: regular rate and rhythm Lungs: clear to auscultation Airway: Mallampati scale and special considerations (Edentulous. ) Neurological: alert and oriented Last oral intake: >/= 8 hours ASA classification: III Emergent: no Anesthetic plan: proceed Anesthesia type and monitoring: general LMA and standard monitoring Results Review: All pre-operative results and documents have been reviewed as part of the pre- operative evaluation. HTN, hyperlipidemia, DM fsbs 146. EKG w SB. Informed Consent: The patient's anesthetic plan and its attendant risks and benefits were discussed with the patient/family/POA. Questions were solicited and answers provided to the satisfaction of the patient/family/POA.
--- NOTE | 2024-03-30 07:08 | WPDHPUPDATE1 ---
History and Physical Update Update Date/Time: 03/30/24 07:08 History and Physical has been reviewed, including an updated exam of the patient. There are NO changes in the patient's condition. Risks, benefits, and alternatives have been discussed and questions answered. Patient agrees to proceed with procedure.
[2024-03-30] MEDS: ceFAZolin 2 GM/D5W 50 ML 2 GM/50 ML BAG IVPB (07:50)
[2024-03-30] MEDS: LIDOCAINE 2% GEL UROJET 10 ML PKG MUCOUS MEM (08:16)
--- NOTE | 2024-03-30 08:32 | W.PM.PROC2 ---
Procedure Note - Detailed Date of Procedure 03/30/24 Pre-op Diagnosis Right hydronephrosis, possible right distal ureteral mass Post-op Diagnosis Other (Right distal ureteral stricture) Procedure Performed Cystoscopy, right retrograde pyelography, right ureteroscopy with biopsy, right ureteral stent placement Surgeon Nathaniel Dunlap MD Anesthesia General Findings Smooth,concentric tight stricture of the distal right ureter without obvious evidence neoplasm, below the right iliac vessels Description of Procedure Patient is brought to the operative suite where he was prepped and draped in routine sterile fashion while in dorsal lithotomy position after the uneventful induction of a general LMA anesthetic. Cystoscopy was undertaken with a 19F rigid cystoscope. He has no urethral stricture and moderate lateral lobe hyperplasia of the prostate without a median lobe. Bladder mucosa is normal without hyperemia. There was no intravesical foreign body or apparent neoplasm. Bladder urine was collected for cytology. A 0.035 in glidewire was advanced to the right renal pelvis and a open-ended ureteral catheter was advanced over that. Ureteral washings her obtained from the right ureter and sent for cytology. Right retrograde pyelography shows smooth concentric narrowing of the distal right ureter. This has an appearance of a stricture. I was only able to dilate across the stricture with an 8 F dilator. I could not pass the 10 F dilator over top of. Right ureteroscopy was in its taken with a short tapered semi-rigid ureteral scope. Can get to the point of stricture. There was no apparent mucosal hyperemia or other abnormalities. There are no signs of neoplastic changes. Obtain several biopsies of this strictured area. I then dilated the stricture with a 10 cm ureteral balloon at 15 atmospheres for 4 minutes. With repeat ureteroscopy was able to pass the short tapered semi-rigid ureteral scope above the strictured area to the iliac vessels. I can see 1 area of hyperplastic ureteral mucosa / ureteral muscle that probably represents the small filling defect on CT urogram. This does not have the appearance of neoplasm but and instead hyperplastic tissue. I obtained several biopsies at that site. Lastly, I placed a 6 F variable length stent with proximal coil in renal pelvis and distal coil in the bladder. Scopes wires removed he was taken recovery room in good condition. Drains Yes Pathology Yes
== END 2024-03-30 10:04 | disposition home or self-care (01) ==
PROVIDERS: Visit Provider Urology
PROC: (CPT 52352; principal; 2024-03-30 07:30)
DX: N13.30 Unspecified hydronephrosis (principal); N40.0 Benign prostatic hyperplasia without lower urinary tract symptoms; E78.5 Hyperlipidemia, unspecified; I10 Essential (primary) hypertension; E11.9 Type 2 diabetes mellitus without complications; G47.33 Obstructive sleep apnea (adult) (pediatric); J44.9 Chronic obstructive pulmonary disease, unspecified; F12.90 Cannabis use, unspecified, uncomplicated; E66.9 Obesity, unspecified; Z68.31 Body mass index [BMI] 31.0-31.9, adult; Z79.84 Long term (current) use of oral hypoglycemic drugs; Z79.01 Long term (current) use of anticoagulants; Z98.890 Other specified postprocedural states; Z98.1 Arthrodesis status; Z87.891 Personal history of nicotine dependence; Z86.711 Personal history of pulmonary embolism; Z86.718 Personal history of other venous thrombosis and embolism; Z86.0100 Personal history of colon polyps, unspecified; Z80.42 Family history of malignant neoplasm of prostate; Z82.49 Family history of ischemic heart disease and other diseases of the circulatory system
CPT/HCPCS: 52354; 52332; 74420; 88108; 88305; C1726; C1758; C1769; C2617; J0690; J2003; J2405; J2704; J3010; J7120; Q9966

== ENCOUNTER 2024-05-05 09:25 | Outpatient (CLI) | payer MEDICARE, SELFPAY ==
--- NOTE | 2024-05-05 09:28 | ECG_ITS ---
Test Date: 2024-05-05 09:51:56 Measurements Intervals [place] Rate: 47 P: 64 NC: 195 QRS: -29 QRSD: 102 T: 21 QT: 408 QTc: 361 Interpretive Statements SINUS BRADYCARDIA VOLTAGE CRITERIA FOR LVH BORDERLINE T WAVE ABNORMALITY- INFERIOR LEADS BASELINE ARTIFACT- I, II, III, AVR, AVL, AVF BORDERLINE ECG No previous ECG available for comparison Electronically Signed On 05-05-2024 10:06:23 SHAPER MACHINE HAND by Luis Fernando Montano D.O.
--- OUTSIDE RECORDS SUMMARY | 2024-05-05 10:00 | XMS_ITS | Encounter Summary ---
Author Organization [facility] Address [address] [place] [address] Care Team Providers Care Children Counselor Name Role Phone Afshin Kirby DO Primary Care Provider [phone] Encounter Details Date Type Department Care Team (Late st Contact Info) Description 11/23/2022 Lab Requisition [facility] - [facility]erm[facility] Lab [address] [place] [id number] Samuel Snyder MD [facility] [address] [place] [id number] Basal cell carcinoma of skin of right upper limb, including shoulder Social History Tobacco Use Types Packs/Day Years Used Date Smoking Tobacco: Never Assessed Sex and Gender Information Value Date Recorded Sex Assigned at Not on file Gender Identity Not on file Sexual Orientation Not on file documented as of this encounter Plan of Treatment Not on file documented as of this encounter Procedures Procedure Name Priority Date/Time Associated Diagnosis Comments DERMATOPATHOLOGY Routine 11/23/2022 12:0 0 AM CDT Basal cell carcinoma of skin of right upper limb, including shoulder documented in this encounter Results * DERMATOPATHOLOGY (11/23/2022 12:00 AM CDT) Case Report Dermatopathology Report Case: [id number] Authorizing Provider: Samuel Snyder MD Collected: 11/23/2022 12:00 AM Ordering Location: [facility] Received: 11/24/2022 11:58 AM Pathologist: Maria Dolores Gaytan MD Specimen: Skin, right shoulder 2:35 PM CDT DERMATOPATHOLOGY LABORATORY Final Diagnosis Specimen A. SKIN, right shoulder: BASAL CELL CARCINOMA (C44.519) NOT PRESENT AT MARGIN DERMAL SCAR (L90.5) 2:35 PM CDT DERMATOPATHOLOGY LABORATORY Clinical History Basal Cell Carcinoma . Check Margins 2:35 PM CDT DERMATOPATHOLOGY LABORATORY Gross Description Specimen A: Received is one formalin filled container labeled with the patient's name and designated right shoulder. The specimen consists of a non-oriented ellipse of skin measuring [id number] mm. The margin is inked green. The 12 o'clock and 6 o'clock tips are submitted in cassette 1. The remainder of the ellipse is serially sectioned and submitted in cassette 2 - 7. Jar 0. 2:35 PM CDT DERMATOPATHOLOGY LABORATORY Microscopic Description Specimen A. SKIN, right shoulder: Within the dermis there are aggregates of basaloid cells with a high nuclear to cytoplasmic ratio and peripheral palisading. This lesion is not present at the margin of the specimen. There are fibroblasts and collagen bundles oriented parallel to the skin surface with elongated blood vessels, some of which are oriented perpendicular to the skin surface. 2:35 PM CDT DERMATOPATHOLOGY LABORATORY Disclaimer An external and internal positive and negative controls are appropriate for the histochemical, immunohistochemical and immunofluorescence stain(s) in this case (if any), except where stated explicitly. The performance characteristics of the stain(s) cited in this report were developed and its performance characteristic determined by the Dermatopathology Laboratory at [facility], directed by Dr. Yamilet Smith. These tests need not be, and therefore are not, approved by the [place] Food and Drug Administration. The tests are used for clinical purposes. Billing Codes Specimen Charges Stain Charges 78779 1 2:35 PM CDT DERMATOPATHOLOGY LABORATORY Embedded Images 2:35 PM CDT DERMATOPATHOLOGY LABORATORY Pathology/Cytolog y TISSUE SPECIMEN FROM SKIN / Unknown 11/23/2022 11/24/2022 11:58 AM CDT Samuel Snyder MD LAB - PATHOLOGY/CYTO LOGY ORDERABLES DERMATOPATHOLOGY LABORATORY [facility] Department of Dermatology [address], [address] [phone] documented in this encounter Visit Diagnoses Diagnosis Basal cell carcinoma of skin of right upper limb, including shoulder Basal cell carcinoma of skin of upper limb, including shoulder documented in this encounter Care Teams Children Counselor Relationship Specialty Start Date End Date Afshin Kirby DO [address] [place] [address] PCP - General 07/25/09 documented as of this encounter
--- OUTSIDE RECORDS SUMMARY | 2024-05-05 10:00 | XMS_ITS | Continuity of Care Document ---
Author Organization [facility] Address [address] [place] [address] Phone Care Team Providers Care Sediment Remediation Consultant Name Role Phone Derrek Fam MD, MD Unavailable Unavailable Medications Medication Instructions Dosage Effective Dates (start - stop) Status Comments Pred Forte 1 % eye drops,suspension one drop in operative eye QID starting 4 hours AFTER surgery and continuing for 4 weeks. - Active this can replace lotemax or durezol ofloxacin 0.3 % eye drops one drop in operative eye QID starting4 hours after surgery and continuing 1 week AFTER surgery. - Active this can replace besivance ketorolac 0.4 % eye drops joy drop in operative eye QID starting 4 hours after surgery and continuing 4 week AFTER surgery. - Active this can replace ilevro or prolensa Procedures Procedure Date AFTER CATARACT LASER SURGERY CATARACT SURG W/IOL, 1 STAGE EYE EXAM, NEW PATIENT OPHTHALMIC BIOMETRY RT DILATED EXAM RIGHT EYE DILATED EXAM LEFT EYE Advance Directives Directive Yes / No Effective Date File Name No Information Encounters Encounter Description Practice Location Reason(s) For Visit Diagnoses Date Provider Providers Copied on Encounter [facility], [address], [place], [place], [id number], [place] tel:[phone] [facility] No Information Jeri Anglin. [address], [address], [place], [place], [id number] , [place]. [phone] Referring Provider: Derrek Montgomery, [address], [place], [id number]. tel:[phone] [facility], [address] [place] [address], [id number], tel:[phone] [facility] No Information 6 Cristel Anglni. [address], [address], [place], [place], [id number] , [place]. tel:[phone] Referring Provider: Derrek Montgomery, [address], [place], [id number]. tel:[phone] [facility], [address] [place] [address], [id number], tel:[phone] [facility] No Information 6 Greg Mir. [address], [address], [id number] , [place]. tel:[phone] [facility], [address] [place] [address], [id number], tel:[phone] [facility] No Information 6 Cristel Anglin. [address], [address], [id number] , [place]. [phone] Referring Provider: Derrek Montgomery, [address], [id number]. tel:[phone] Family History Family Member Type Diagnosis Age At Onset No Information Payers Payer name Insurance type Covered green party ID Authoriza tizach(s) [employer] [facility] [id number] Social History Type Description Quantity Date Captured Comments Sex Male Smoking Status No Information Chief Complaint And Reason For Visit No Information Plan Of Treatment Date Type Action Status No Information History Of Present Illness Encounter Date Complaint History Of Prese nt Illness No Information Instructions Date Instruction Additional Infor mation No Information Assessments Type Assessment Date No Information
--- OUTSIDE RECORDS SUMMARY | 2024-05-05 10:00 | XMS_ITS | Clinical Summary ---
Author Organization [facility] [place] [address] Address [address] [place] [address] Care Team Providers Care Legal Administrative Assistant Name Role Phone Afshin Kirby MD Primary Care Provider [phone] Allergies Active Allergy Reactions Criticality Noted Date Comments Adhesive Blisters High 05/23/2019 Morphine Nausea & Vomiting Low Medications ALPRAZolam (XANAX) 0.5 mg tablet Take 0.5 mg by mouth 3 (three) times a day as needed for anxiety or sleep Active citalopram (CeleXA) 20 mg tabletIndicatio ns:Anxiety with Depression Take 20 mg by mouth daily before breakfast Active fluticasone propion-salmete rol (Advair Diskus) 250-50 mcg/dose diskus inhaler Inhale 1 puff 2 (two) times a day as needed Active hydroCHLOROthia zide (HYDRODIURIL) 25 mg tabletIndicatio ns:hypertension Take 25 mg by mouth daily before breakfast Active lisinopril (PRINIVIL,ZESTR IL) 20 mg tabletIndicatio ns:hypertension Take 20 mg by mouth daily before breakfast Active metFORMIN (GLUCOPHAGE) 500 mg tabletIndicatio ns:type 2 diabetes mellitus Take 500 mg by mouth daily with breakfast Active rosuvastatin (CRESTOR) 5 mg tabletIndicatio ns:hyperlipidem ia Take 5 mg by mouth nightly 0 Active multivitamin capsuleIndicati ons:Vitamin Deficiency Prevention Take 1 capsule by mouth daily before breakfast Active acetaminophen 500 mg capsule Take 2 capsules (1,000 mg total) by mouth every 6 (six) hours 30 tablet 0 Active gabapentin (NEURONTIN) 100 mg capsuleIndicati ons:Pain Take 1 capsule (100 mg total) by mouth every 8 (eight) hours 90 capsule 11 0 Active warfarin (COUMADIN) 5 mg tablet 0 Active Active Problems Problem Noted Date Diagnosed Date Flatback syndrome of lumbar region 01/30/2020 Sagittal plane imbalance 08/24/2019 Overview (08/24/2019): Added automatically from request for surgery [id number] Spinal stenosis, lumbar kenny on, with neurogenic claudication 08/24/2019 Overview (08/24/2019): Added automatically from request for surgery [id number] Chronic obstructive pulmonary disease 04/13/2014 Bronchial asthma 04/13/2014 Hypertension 04/13/2014 Hyperlipidemia 04/13/2014 Obstructive sleep apnea syndrome 04/13/2014 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 Anxiety 04/13/2014 Lumbago 04/13/2014 Seizure 04/13/2014 Surgical History Surgery Date Site/Laterality Comments BACK SURGERY Lower Back Surgery - (Added by TW Conv) KNEE SURGERY Knee Surgery - (Added by TW Conv) SPINAL FUSION LAMINECTOMY INSERTION / PLACEMENT / REVISION NEUROSTIMULATOR KNEE SURGERY 03/29/2006 - 03/28/2007 INSERT VENA CAVA FILTER 10/12/2019 N/A Medical History Medical History Date Comments Personal history of pulmonary embolism History of pulmonary embolism - (Added by TW Conv) Nonpyogenic meningitis Meningiti s, aseptic - (Added by TW Conv) Arthritis Asthma Diabetes mellitus (HCC) Emphysema of lung (HCC) Obesity Sleep apnea Seizures (HCC) Type 2 diabetes mellitus (HCC) Family History Medical History Relation Name Comments Cancer Brother Cancer Daughter Arthritis Father Coronary artery disease Father Fami ly history of coronary artery disease - (Added by TW Conv) Diabetes Father Heart disease Father Hypertension Father Arthritis Mother Cancer Mother Relation Name Status Comments Brother Daughter Father Mother Social History Tobacco Use Types Packs/Day Years Used Date Smoking Tobacco: Former Cigarettes 1 30 1 970 - 1999 Smokeless Tobacco: Former Quit: 1999 Alcohol Use Standard Drinks/Week Comments Not Currently 0 (1 standard drink = 0.6 oz pur e alcohol) Sex and Gender Information Value Date Recorded Sex Assigned at Not on file Legal Sex Male 7:[address] [facility] Gender Identity Not on file Sexual Orientation Not on file Obstetrics History Last Filed Vital Signs Vital Sign Reading Time Taken Comments Blood Pressure 125/60 10/21/2019 10:51 AM CDT Pulse 68 10/21/2019 10:51 AM CDT Temperature 37 C (98.6 F) 10/21/2019 8:00 AM CDT Respiratory Rate 18 10/21/2019 8:0 0 AM CDT Oxygen Saturation 97% 10/21/2019 10: 51 AM CDT Inhaled Oxygen Concentration - - Weight 104.9 kg (231 lb 3.2 oz) 020 11:[address] [facility] Height 180.3 cm (5' 11 ) 01/30/2020 11: [address] [facility] Body Mass Index 32.25 01/30/2020 11:[address] MAG[facility] Plan of Treatment Not on file Medical Devices Implanted Type Area Auto Clutch Rebuilder Device Identifier Shelf Expiration Date Model / Serial / Lot Neurostimulator Neurostimu lator Back Medtronic Neuro [id number] / / Bard Peripheral Vascular [id number] Charles Delivery Kit Vena Cava Jugular Filter Embolization Nitinol Latex Free - [id number] Implanted:Qty: 1 on 10/12/2019 at [facility] [employer]ipheral [employer]ascular 09/25/2022 [id number] / / [id number] Medtronic Sofamor [place] [id number] Infuse 18mm 26mm Absorbable Sponge Sterile Water Syringe Needle - [id number] Implanted:Qty: 1 on 10/13/2019 by Clarke Logan MD at [facility] N/A: Spine Lumbar Medtronic Inc 10/27/2020 [id number] / / [id number] Musculoskeletal Transplant [id number] Allograft; Chips; Frozen; Morselize .1-4 Mm Filler 30 Cc Bone Voi - [id number] - [id number] Implanted:Qty: 1 on 10/13/2019 by Clarke Logan MD at [facility] N/A: Spine Lumbar Musculoskeletal Transplant 08/13/2023 [id number] / [id number] / Allosource [id number] Crushed Chip Frozen Graft 90ml Bone Cancellous - [id number] - [id number] Implanted:Qty: 1 on 10/13/2019 by Clarke Logan MD at [facility] N/A: Spine Lumbar Allosource 07/21/2024 [id number] / [id number] / Allosource [id number] Crushed Chip Frozen Graft 90ml Bone Cancellous - [id number] - [id number] Implanted:Qty: 1 on 10/13/2019 by Clarke Logan MD at [facility] N/A: Spine Lumbar Allosource 07/19/2024 [id number] / [id number] / Depuy Spine [id number] Expedium 6.5mm 50mm Polyaxial Spine Screw Bone Titanium 5.5mm Xu - [id number] Implanted:Qty: 5 on 10/13/2019 by Clarke Logan MD at [facility] N/A: Spine Lumbar Depuy Spine [id number] / / Depuy Spine [id number] Expedium 6.5mm 55mm Polyaxial Spine Screw Bone Titanium 5.5mm Xu - [id number] Implanted:Qty: 3 on 10/13/2019 by Clarke Logan MD at [facility] N/A: Spine Lumbar Depuy Spine [id number] / / Depuy Spine [id number] Expedium 6.5mm 60mm Polyaxial Spine Screw Bone Titanium 5.5mm Xu - [id number] Implanted:Qty: 4 on 10/13/2019 by Clarke Logan MD at [facility] N/A: Spine Lumbar Depuy Spine [id number] / / Depuy Spine [id number] Expedium 7mm 55mm 1 Innie Polyaxial Spine Screw Bone Titanium - [id number] Implanted:Qty: 1 on 10/13/2019 by Clarke Logan MD at [facility] N/A: Spine Lumbar Depuy Spine [id number] / / Depuy Spine [id number] Expedium 7mm 60mm 1 Innie Polyaxial Spine Screw Bone Titanium - [id number] Implanted:Qty: 1 on 10/13/2019 by Clarke Logan MD at [facility] N/A: Spine Lumbar Depuy Spine [id number] / / Depuy Spine [id number] Expedium 7.5mm 50mm 1 Innie Polyaxial Spine Screw Bone Titanium - [id number] Implanted:Qty: 1 on 10/13/2019 by Clarke Logan MD at [facility] N/A: Spine Lumbar Depuy Spine [id number] / / Depuy Spine [id number] Expedium 7.5mm 55mm 1 Innie Polyaxial Spine Screw Bone Titanium - [id number] Implanted:Qty: 1 on 10/13/2019 by Clarke Logan MD at [facility] N/A: Spine Lumbar Depuy Spine [id number] / / Depuy Spine [id number] Expedium Viper 8mm 100mm Polyaxial Spine Sacral Alar Iliac Screw - [id number] Implanted:Qty: 2 on 10/13/2019 by Clarke Logan MD at [facility] N/A: Spine Lumbar Depuy Spine [id number] / / Depuy Spine [id number] Expedium 5.5mm 65mm Line Prebent Xu Spinal Titanium Nonsterile - [id number] Implanted:Qty: 1 on 10/13/2019 by Clarke Logan MD at [facility] N/A: Spine Lumbar Depuy Spine [id number] / / Depuy Spine [id number] Expedium 5.5mm 55mm Line Prebent Xu Spinal Titanium Nonsterile - [id number] Implanted:Qty: 1 on 10/13/2019 by Clarke Logan MD at [facility] N/A: Spine Lumbar Depuy Spine [id number] / / Depuy Spine [id number] Expedium 1 Inner Monoaxial Spine Screw Set Titanium - [id number] Implanted:Qty: 18 on 10/13/2019 by Clarke Logan MD at [facility] N/A: Spine Lumbar Depuy Spine [id number] / / Depuy Spine [id number] Viper 2 600mm Straight Xu Spinal Cocr - [id number] Implanted:Qty: 1 on 10/13/2019 by Clarke Logan MD at [facility] N/A: Spine Lumbar Depuy Spine [id number] / / Integra Lifesciences [place] [id number] Duragen Plus 2x2in Patch Resorbable Suturable Cranial Dura Graft - [id number] Implanted:Qty: 1 on 10/13/2019 by Clarke Logan MD at [facility] N/A: Spine Lumbar Integra Lifesciences [place] [id number] / / Medtronic SofCarbonetworks Danek [id number] Infuse 18mm 26mm Absorbable Sponge Sterile Water Syringe Needle - [id number] Implanted:Qty: 1 on 10/13/2019 by Clarke Logan MD at [facility] N/A: Spine Lumbar Medtronic Inc 10/27/2020 [id number] / / [id number] Explanted Type Area Auto Clutch Rebuilder Device Identifier Shelf Expiration Date Model / Serial / Lot Screws Explanted:Qty: 8 on 10/13/2019 by Clarke Logan MD at [facility] N/A: Spine Lumbar Depuy Synthes Spine Rods Explanted:Qty: 2 on 10/13/[address] [facility] N/A: Spine Lumbar Depuy Synthes Spine Crosslink Explanted:Qty: 1 on 10/13/[address] [facility] N/A: Spine Lumbar Depuy Synthes Spine Connectors Explanted:Qty: 8 on 10/13/[address] [facility] N/A: Spine Lumbar Depuy Synthes Spine Nuts Explanted:Qty: 8 on 10/13/[address] [facility] N/A: Spine Lumbar Depuy Synthes Spine Insurance [facility] HMO REF [facility] Advance Directives For more information, please contact: [phone] * Full Code (Latest Code Status on File) Date Activated Date Inactivated Comments 10/13/2019 9:43 PM 10/21/2019 6:52 PM * Full Code Date Activated Date Inactivated Comments 10/12/2019 10:19 AM 10/12/2019 4:09 PM Care Teams Legal Administrative Assistant Relationship Specialty Start Date End Date Afshin Kirby MD [address] [facility] [address] [place] [address] PCP - General Internal Medicine 09/16/16
--- OUTSIDE RECORDS SUMMARY | 2024-05-05 10:00 | XMS_ITS | Patient Health Summary ---
Author Organization [facility] Address [address] [place] [address] Care Team Providers Care Oracle Database Architect Name Role Phone Afshin Kirby Mk MCNEILL Primary Care Provider Note from [facility],non-owned Affiliates and Associated Physician Practices is amultiple site organization consisting of ambulatory clinics and hospital sitesin [place], [place], [place] and [place]. This disclosure is being madepursuant to the Care Everywhere program and may not contain all information available regarding this patient. Last updated 17.[facility] Medications * Be aware that medications may not be up to date on this document. Alwaysverify current medications with the patient. * baclofen (Lioresal) 10 MG tablet Take 1 (one) tablet by mouth 3 times daily May cause drowsiness. * citalopram (CeleXA) 20 MG tablet Take 1 (one) tablet by mouth once daily * gabapentin (Neurontin) 100 MG capsule Take 1 (one) capsule by mouth 3 times daily * lisinopril (Prinivil; Zestril) 20 MG tablet Take 1 (one) tablet by mouth once daily * rosuvastatin (Crestor) 5 MG tablet Take 1 (one) tablet by mouth once daily * ALPRAZolam (Xanax) 0.5 MG tablet Take 1 (one) tablet by mouth 3 times daily as needed for Anxiety * traMADol (Ultram) 50 MG tablet Take 1 (one) tablet by mouth every 6 hours as needed for Pain Active Problems Problem Noted Date Diagnosed Date History of meningitis 04/27/2023 History of spinal fusion 04/27/2023 History of pulmonary embolism 04/27/2023 Primary hypertension 04/27/2023 Type 2 diabetes mellitus 04/27/2023 HLD (hyperlipidemia) 04/27/2023 Anxiety 04/27/2023 Nephrolithiasis 04/25/2023 Seizure 04/25/2023 Altered mental status, unspe cified altered mental status type 04/25/2023 Social History Tobacco Use Types Packs/Day Years Used Date Smoking Tobacco: Unknown Tobacco Cessation:Counseling Given: Not Answered Alcohol Use Standard Drinks/Week Comments Never 0 (1 standard drink = 0.6 oz pur e alcohol) AUDIT-C Answer Date Recorded Q1: How often do you have a drink containing alcohol? Patient unable to answer 04/26/2023 Q2: How many drinks containi ng alcohol do you have on a typical day when you are drinking? Patient unable to answer Q3: How often do you have si x or more drinks on one occasion? Patient unable to answer 04/26/2023 Overall Financial Resource Strain (CARDIA) Answe r Date Recorded How hard is it for you to pa y for the very basics like food, housing, medical care, and heating? Not hard at all 04/28/2023 [facility] Occupat ional [facility] - Occupational Stress Questionnaire Answer Date Recorded Do you feel stress - tense, restless, nervous, or anxious, or unable to sleep at night because your mind is troubled all the time - these days? Not at all 04/28/2023 Hunger Vital Sign Answer Date Recorded Within the past 12 months, y ou worried that your food would run out before you got the money to buy more. Never true 04/28/19 24 Within the past 12 months, t he food you bought just didn't last and you didn't have money to get more. Never true 04/28/2023 PRAPARE - Transportation Answer Date Re corded In the past 12 months, has l ack of transportation kept you from medical appointments or from getting medications? No 03/31 In the past 12 months, has l ack of transportation kept you from meetings, work, or from getting things needed for daily living? No 04/28/2023 Housing Stability Vital Sign Answer Lavelle e Recorded In the last 12 months, was t here a time when you were not able to pay the mortgage or rent on time? No 04/28/2023 Number of Places Lived in the Last Year Not on f ile 04/28/2023 In the last 12 months, was t here a time when you did not have a steady place to sleep or slept in a longterm (including now)? No 04/28/2023 Sex and Gender Information Value Date Recorded Sex Assigned at Not on file Gender Identity Not on file Sexual Orientation Not on file Last Filed Vital Signs Vital Sign Reading Time Taken Comments Blood Pressure 117/62 04/29/2023 11:42 AM BOX TRUCK DRIVER Pulse 63 04/29/2023 11:42 AM BOX TRUCK DRIVER Temperature 37 C (98.6 F) 04/29/2023 11:42 AM BOX TRUCK DRIVER Respiratory Rate 18 04/29/2023 4:49 AM BOX TRUCK DRIVER Oxygen Saturation 96% 04/29/2023 11:42 AM BOX TRUCK DRIVER Inhaled Oxygen Concentration - - Weight 99.8 kg (220 lb 0.3 oz) 04/28/2023 1:25 A M BOX TRUCK DRIVER Height 180.3 cm (5' 11 ) 04/28/2023 1:25 AM BOX TRUCK DRIVER Body Mass Index 30.69 04/28/2023 1:25 AM BOX TRUCK DRIVER Medical Devices Implanted Type Area Capacity Planning Analyst Device Identifier Shelf Expiration Date Model / Serial / Lot Abandoned Lead Spinal Cord Stimulator Procedures * CARDIAC EKG ORDER(Performed 04/29/2023) * GLUCOSE - POINT OF CARE(Performed 04/29/2023) * MAGNESIUM BLOOD(Performed 04/29/2023) Performed for Altered mental status, unspecified altered mental status type * GLUCOSE - POINT OF CARE(Performed 04/28/2023) * GLUCOSE - POINT OF CARE(Performed 04/28/2023) * CBC W/O DIFFERENTIAL(Performed 04/28/2023) * RENAL FUNCTION PANEL(Performed 04/28/2023) * MAGNESIUM BLOOD(Performed 04/28/2023) Performed for Altered mental status, unspecified altered mental status type * GLUCOSE - POINT OF CARE(Performed 04/27/2023) * PT-INR SLH(Performed 04/27/2023) * GLUCOSE - POINT OF CARE(Performed 04/27/2023) * AMMONIA(Performed 04/27/2023) * FOLATE(Performed 04/27/2023) * METHYLMALONIC ACID BLOOD(Performed 04/27/2023) * VITAMIN B12(Performed 04/27/2023) * URINE DRUG SCREEN IMMUNOASSAY(Performed 04/27/2023) * SYPHILIS ANTIBODY CASCADING REFLEX(Performed 04/27/2023) * HERPES SIMPLEX 1+2 ANTIBODY IGG/IGM PANEL(Performed 04/27/2023) * HIV-1 HIV-2 ANTIBODY + HIV P24 AG PANEL(Performed 04/27/2023) * GLUCOSE - POINT OF CARE(Performed 04/27/2023) * PT-INR SLH(Performed 04/27/2023) * CBC W/O DIFFERENTIAL(Performed 04/27/2023) * RENAL FUNCTION PANEL(Performed 04/27/2023) * MAGNESIUM BLOOD(Performed 04/27/2023) Performed for Altered mental status, unspecified altered mental status type * GLUCOSE - POINT OF CARE(Performed 04/26/2023) * PT-INR SLH(Performed 04/26/2023) * GLUCOSE - POINT OF CARE(Performed 04/26/2023) * EEG VIDEO MONITORING(Performed 04/26/2023) * GLUCOSE - POINT OF CARE(Performed 04/26/2023) * URINE MICROSCOPIC ONLY REFLEX TO CULTURE(Performed 04/26/2023) * URINE DRUG SCREEN IMMUNOASSAY(Performed 04/26/2023) * URINALYSIS REFLEX MICROSCOPIC REFLEX CULTURE(Performed 04/26/2023) * CULTURE URINE(Performed 04/26/2023) * T4 FREE(Performed 04/26/2023) * SYPHILIS ANTIBODY CASCADING REFLEX(Performed 04/26/2023) * VITAMIN B12(Performed 04/26/2023) * CORTISOL BLOOD AM(Performed 04/26/2023) * LIPID PROFILE(Performed 04/26/2023) * HEMOGLOBIN A1C(Performed 04/26/2023) * TSH REFLEX FREE T4(Performed 04/26/2023) * ALCOHOL ETHYL BLOOD(Performed 04/26/2023) * PHOSPHORUS BLOOD(Performed 04/26/2023) Performed for Nephrolithiasis * MAGNESIUM BLOOD(Performed 04/26/2023) Performed for Altered mental status, unspecified altered mental status type * COMPREHENSIVE METABOLIC PANEL(Performed 04/26/2023) Performed for Altered mental status, unspecified altered mental status type * CBC W AUTO DIFFERENTIAL(Performed 04/26/2023) Performed for Seizure (HCC) * BLOOD TYPE VERIFICATION(Performed 04/25/2023) * CULTURE BLOOD(Performed 04/25/2023) * CT ABDOMEN PELVIS WO CONTRAST(Performed 04/25/2023) Performed for Altered mental status, unspecified altered mental status type * CT HEAD WO CONTRAST(Performed 04/25/2023) Performed for Altered mental status, unspecified altered mental status type * CK BLOOD(Performed 04/25/2023) * TROPONIN-I HIGH SENSITIVE(Performed 04/25/2023) * B-TYPE NATRIURETIC PEPTIDE(Performed 04/25/2023) * CT ANGIO BRAIN NECK STROKE(Performed 04/25/2023) Performed for Altered mental status, unspecified altered mental status type * TYPE + SCREEN PANEL(Performed 04/25/2023) * PT-INR SLH(Performed 04/25/2023) * COMPREHENSIVE METABOLIC PANEL(Performed 04/25/2023) * CBC W AUTO DIFFERENTIAL(Performed 04/25/2023) * CREATININE - POCT INTERFACED(Performed 04/25/2023) * INR WHOLE BLOOD - POINT OF CARE (IP) STROKE(Performed 04/25/2023) * CT BRAIN STROKE(Performed 04/25/2023) Performed for Altered mental status, unspecified altered mental status type * DERMATOPATHOLOGY(Performed 11/23/2022) Performed for Basal cell carcinoma of skin of right upper limb, including shoulder * CULTURE SPUTUM+GRAM STAIN(Performed 02/17/2014) * CULTURE URINE(Performed 02/17/2014) * CULTURE MRSA(Performed 02/17/2014) * CULTURE CSF+GRAM STAIN(Performed 02/17/2014) * CULTURE AFB+SMEAR(Performed 02/17/2014) * CULTURE FUNGUS OTHER+FUNGUS SMEAR(Performed 02/17/2014) * CULTURE BLOOD(Performed 02/17/2014) * CULTURE BLOOD(Performed 02/17/2014) * CULTURE BLOOD(Performed 02/16/2014) * CULTURE BLOOD(Performed 02/16/2014) Results * CARDIAC EKG ORDER (04/29/2023 5:10 PM BOX TRUCK DRIVER) Narrative 04/29/2023 5:10 PM BOX TRUCK DRIVER Ordered by an unspecified provider. Scanned Document CARDIAC SERVICES ORD ERABLES * (ABNORMAL) GLUCOSE - POINT OF CARE (04/29/2023 10:25 AM BOX TRUCK DRIVER) Only the most recent of9 resultswithin the time period is included. Pathologist [facility] [place] Glucose WB/POC 169(H) 70 - 115 mg/dL 04/29/2023 10:26 AM [facility] Specimen Type Arterial 04/29/2023 10:26 AM [facility] Blood BLOOD SPECIMEN / Unknown 04/29/2023 10:25 AM BOX TRUCK DRIVER 04/29/2023 10:26 AM BOX TRUCK DRIVER Cameron Rachel MD LAB - POINT OF CARE ORDERABLES [facility] [address] [place] [address], [facility] [phone] * MAGNESIUM BLOOD (04/29/2023 7:20 AM BOX TRUCK DRIVER) Only the most recent of4 resultswithin the time period is included. Pathologist [facility] [place] Magnesium 2.0 1.6 - 2.6 mg/dL 04/29/2023 7:55 AM [facility] Blood BLOOD SPECIMEN / Unknown Lab Venipuncture / Unknown 04/29/2023 7:20 AM BOX TRUCK DRIVER 04/29/2023 7:30 AM BOX TRUCK DRIVER Nicola Echevarria MD LAB - CHEMISTRY ORD ERABLES Performing Organization Address City/[facility]/ZIP Co de Phone Number [facility] [address] [place] [address], [facility] [phone] * (ABNORMAL) CBC W/O DIFFERENTIAL (04/28/2023 5:33 AM BOX TRUCK DRIVER) Only the most recent of2 resultswithin the time period is included. Pathologist [facility] [place] WBC 7.0 4.0 - 10.7 x10E9/L 04/28/2023 7:18 AM [facility] RBC Count 4.11(L) 4.30 - 5.80 x10E12/L 04/28/2023 7:18 AM [facility] Hemoglobin 12.8(L) 13.3 - 17.5 g/dL 04/28/2023 7:18 AM [facility] Hematocrit 37.5(L) 38.7 - 51.1 % 04/28/2023 7:18 AM [facility] MCV 91.2 80.0 - 98.0 fL 04/28/2023 7:18 AM [facility] MCH 31.1 26.7 - 33.6 pg 04/28/2023 7:18 AM [facility] MCHC 34.1 31.7 - 36.3 g/dL 04/28/2023 7:18 AM [facility] RDW-CV 12.2 11.3 - 14.8 % 04/28/2023 7:18 AM [facility] Platelet Count 217 150 - 420 x10E9/L 04/28/2023 7:18 AM [facility] MPV 9.1 7.8 - 11.4 fL 04/28/2023 7:18 AM [facility] Blood BLOOD SPECIMEN / Unknown Lab Venipuncture / Unknown 04/28/2023 5:33 AM BOX TRUCK DRIVER 04/28/2023 7:07 AM BOX TRUCK DRIVER Mirtha Ontiveros MD LAB - HEMATOLOGY ORD ERABLES [facility] [address] [place] [address], [facility] [phone] * (ABNORMAL) RENAL FUNCTION PANEL (04/28/2023 5:33 AM BOX TRUCK DRIVER) Only the most recent of2 resultswithin the time period is included. BUN 23 7 - 26 mg/dL 04/28/2023 7:34 AM [facility] Creatinine 1.26(H) 0.71 - 1.16 mg/dL 04/28/2023 7:34 AM [facility] Sodium 139 136 - 145 mmol/L 04/28/2023 7:34 AM [facility] Potassium 3.9 3.5 - 4.5 mmol/L 04/28/2023 7:34 AM [facility] Chloride 111(H) 98 - 107 mmol/L 04/28/2023 7:34 AM [facility] CO2 23 22 - 29 mmol/L 04/28/2023 7:34 AM [facility] Glucose 84 70 - 115 mg/dL 04/28/2023 7:34 AM [facility] Albumin 3.0(L) 3.4 - 5.0 g/dL 04/28/2023 7:34 AM [facility] Calcium 9.0 8.4 - 10.2 mg/dL 04/28/2023 7:34 AM [facility] Phosphorus 2.4(L) 2.8 - 5.1 mg/dL 04/28/2023 7:34 AM [facility] Anion Gap 5(L) 6 - 16 04/28/2023 7:34 AM [facility] BUN/Creatinine Ratio 18 7 - 23 04/28/2023 7:34 AM [facility] Osmolality Calculated 291 275 - 295 mOsm/kg 04/28/2023 7:34 AM [facility] eGFR by CKD-EPI 61(L) >=90 mL/min/1.7 3 m2 04/28/2023 7:34 AM [facility] Blood BLOOD SPECIMEN / Unknown Lab Venipuncture / Unknown 04/28/2023 5:33 AM BOX TRUCK DRIVER 04/28/2023 7:07 AM [facility] Mirtha Ontiveros MD LAB - CHEMISTRY ORDE [facility] Organization Address City/State/ZIP Co de Phone Number [facility] [address] [place] [address], [facility] [phone] * (ABNORMAL) PT-INR [facility] (04/27/2023 2:09 PM BOX TRUCK DRIVER) Only the most recent of4 resultswithin the time period is included. PT 21.2(H) 12.1 - 14.8 Seconds 04/27/2023 2:38 PM [facility] INR 1.9 See Comment 04/27/2023 2:38 PM [facility] Comment:The suggested therap eutic range for standard coumadin (warfarin) therapy is an INR of 2.0-3.0. For high-risk patients (Mechanical Mitral Valve Prosthesis, etc.), the suggested prophylactic therapeutic range is an INR of 2.5-3.5. Blood BLOOD SPECIMEN / Unknown Venipuncture / Unknown 04/27/2023 2:09 PM BOX TRUCK DRIVER 04/27/2023 2:13 PM BOX TRUCK DRIVER Mirtha Ontiveros MD LAB - COAGULATION OR DERABLES [address] [address], [place] [phone] * SYPHILIS ANTIBODY CASCADING REFLEX (04/27/2023 9:30 AM BOX TRUCK DRIVER) Only the most recent of2 resultswithin the time period is included. Treponema pallidum Antibody Non-react bonilla Non-react bonilla 04/27/2023 10:56 AM BOX TRUCK DRIVER [facility] Comment: No Laboratory evidence of syphilis infection. Note: Circulating antibodies may be low or undetectable in early infection. If recent exposure is suspected, re-draw sample in 2-4 weeks and repeat testing. Blood BLOOD SPECIMEN / Unknown Venipuncture / Unknown 04/27/2023 9:30 AM BOX TRUCK DRIVER 04/27/2023 9:45 AM BOX TRUCK DRIVER Mirtha Ontiveros MD LAB - SEROLOGY ORDER KAIN Performing Organization Address [facility] Co de Phone Number [address] [address], [place] [phone] * HIV-1 HIV-2 ANTIBODY + HIV P24 AG PANEL (04/27/2023 9:30 AM BOX TRUCK DRIVER) HIV Antigen/Antibod y 1 & 2 Non-reacti ve Non-react bonilla 04/27/2023 10:56 AM BOX TRUCK DRIVER [facility] Comment:No Laboratory eviden ce of HIV infection. Blood BLOOD SPECIMEN / Unknown Venipuncture / Unknown 04/27/2023 9:30 AM BOX TRUCK DRIVER 04/27/2023 9:45 AM BOX TRUCK DRIVER Mirtha Ontiveros MD LAB - CHEMISTRY ORDE RABJOHN Performing Organization Address City/[facility]/ZIP Co de Phone Number [address] [address], [place] [phone] * METHYLMALONIC ACID BLOOD (04/27/2023 9:30 AM BOX TRUCK DRIVER) Pathologist [facility] Methylmalonic Acid 0.12 0.00 - 0.40 umol/L 04/30/2023 12:40 AM BOX TRUCK DRIVER [facility] [[email or web address]] [facility] ([facility]) Comment: INTERPRETIVE INFORMATION: MMA Serum/Plasma, Vitamin B12 Status This test was developed and its performance characteristics determined by [facility]. It has not been cleared or approved by the [place] Food and Drug Administration. This test was performed in a CLIA certified laboratory and is intended for clinical purposes. Performed By: [facility] [address] [place] [address] Ophthalmologist: Bryan Garcia MD, PhD CLIA Number: [id number] Blood BLOOD SPECIMEN / Unknown Venipuncture / Unknown 04/27/2023 9:30 AM BOX TRUCK DRIVER 04/27/2023 9:45 AM BOX TRUCK DRIVER Mirtha Ontiveros MD LAB - CHEMISTRY CHELSIE ANDINO [facility] Organization Address City/State/ZIP Co de Phone Number [facility] [[email or web address]] Oxatis [facility]) [address] * HERPES SIMPLEX 1+2 ANTIBODY IGG/IGM PANEL (04/27/2023 9:30 AM BOX TRUCK DRIVER) [facility] Herpes Simplex Virus 1/2 Antibody IgG 0.49 IV 04/29/2023 12:53 PM BOX TRUCK DRIVER [facility] ([facility]) Comment: INTERPRETIVE INFORMATION: HSV 1/2 COMBINED Ab SCREEN, IgG 0.89 IV or less.........Not Detected 0.90-1.09 IV............Indeterminate- Repeat testing in 10-14 days may be helpful. 1.10 IV or greater......Detected The best evidence for current infection is a significant change on two appropriately timed specimens, where both tests are done in the same laboratory at the same time. Herpes Simplex Virus 1/2 Antibody IgM 0.35 <=0.89 IV 04/29/2023 12:53 PM BOX TRUCK DRIVER [facility] ([facility]) Comment: INTERPRETIVE INFORMATION: Herpes Simplex Virus Type 1 and/or 2 Antibodies, IgM by ALPHONSE 0.89 IV or Less .......... Not Detected 0.90 - 1.09 IV ........... Indeterminate- Repeat testing in 10-14 days may be helpful. 1.10 IV or Greater ....... Detected-IgM antibody to HSV detected, which may indicate a current or recent infection. However, low levels of IgM antibodies may occasionally persist for more than 12 months post-infection. Performed By: [place] [address] Ophthalmologist: Bryan Garcia MD, PhD CLIA Number: [id number] Blood BLOOD SPECIMEN / Unknown Venipuncture / Unknown 04/27/2023 9:30 AM BOX TRUCK DRIVER 04/27/2023 9:45 AM [facility] Mirtha Ontiveros MD LAB - [facility]STRY [facility] ([facility]) [address] [place] [address], [facility] * (ABNORMAL) URINE DRUG SCREEN IMMUNOASSAY (04/27/2023 9:30 AM [facility]) Only the most recent of2 resultswithin the time period is included. [facility] Amphetamines Screen Urine Negative Negative : < 1000 ng/mL 04/27/2023 10:08 AM [facility] Barbiturates Screen Urine Negative Negative : < 200 ng/mL 04/27/2023 10:08 AM [facility] Benzodiazepine Screen Urine Positive(A) Negative : < 200 ng/mL 04/27/2023 10:08 AM [facility] Comment: Positive urine benzodiazepine screening results should be confirmed by another generally accepted non-immunological method such as gas chromatography or mass spectrometry. Opiates Urine Negative Negative : < 300 ng/mL 04/27/2023 10:08 AM [facility] Cocaine Metabolites Urine Negative Negative : < 300 ng/mL 04/27/2023 10:08 AM [facility] Phencyclidine Screen Urine Negative Negative : < 25 ng/ml 04/27/2023 10:08 AM [facility] Cannabinoids Screen Urine Positive(A) Negative : <50 ng/mL 04/27/2023 10:08 AM [facility] Comment:Positive urine canna binoids (THC) screening results should be confirmed by another generally accepted non-immunological method such as gas chromatography or mass spectrometry. Methadone Screen Urine Negative Negative : < 300 ng/mL 04/27/2023 10:08 AM [facility] Fentanyl Screen Urine Negative Negative : <1.5 ng/mL 04/27/2023 10:08 AM [facility] Urine URINE / Unknown Collection / Unknown 04/27/2023 9:30 AM BOX TRUCK DRIVER 04/27/2023 9:47 AM BOX TRUCK DRIVER Narrative [facility] - 04/27/2023 10:08 AM [facility] The Urine Toxicology Screening Panel does not screen for Propoxyphene, Meprobamate, Carisoprodol, Trazodone, iaiz-osn-potsuff medications and/or volatiles (Acetone, Isopropanol, Methanol or Ethylene Glycol). Ethanol, Salicylate, Acetaminophen, Tricyclic Antidepressants and several therapeutic drugs may be individually assayed in serum or plasma specimen. Toxicology testing by the [facility] is an aid to medical diagnosis and treatment of patients. No documented chain of custody was maintained. Results are intended to be used for clinical purposes only. Mirtha Ontiveros MD LAB - URINE CHEMISTR Y ORDERABLES [address] [address], [facility] [phone] * FOLATE (04/27/2023 9:30 AM [facility]) Folate 10.3 7.0 - 31.4 ng/mL 04/27/2023 11:00 AM [facility] Blood BLOOD SPECIMEN / Unknown Venipuncture / Unknown 04/27/2023 9:30 AM BOX TRUCK DRIVER 04/27/2023 9:51 AM BOX TRUCK DRIVER Mirtha Ontiveros MD LAB - CHEMISTRY ORDE RABJOHN [address] [address], [place] [phone] * (ABNORMAL) VITAMIN B12 (04/27/2023 9:30 AM BOX TRUCK DRIVER) Only the most recent of2 resultswithin the time period is included. Vitamin B12 1,375(H) 213 - 816 pg/mL 04/27/2023 11:00 AM [facility] Blood BLOOD SPECIMEN / Unknown Venipuncture / Unknown 04/27/2023 9:30 AM BOX TRUCK DRIVER 04/27/2023 9:51 AM BOX TRUCK DRIVER Mirtha Ontiveros MD LAB - CHEMISTRY CHELSIE ANDINO [address] [address], [facility] [phone] * AMMONIA (04/27/2023 9:30 AM BOX TRUCK DRIVER) Ammonia 32 <=72 umol/L 04/27/2023 10:19 AM [facility] Blood BLOOD SPECIMEN / Unknown Venipuncture / Unknown 04/27/2023 9:30 AM BOX TRUCK DRIVER 04/27/2023 9:50 AM BOX TRUCK DRIVER Mirtha Ontiveros MD LAB - CHEMISTRY CHELSIE ANDINO Performing Organization Address City/[facility]/ZIP Co de Phone Number [address] [address], [facility] [phone] * (ABNORMAL) URINE MICROSCOPIC ONLY REFLEX TO CULTURE (04/26/2023 8:44 AM BOX TRUCK DRIVER) Reflex Status Culture to follow 04/26/2023 9:29 AM [facility] RBC UA >100(A) None Seen, 0-2, 3-5 /HPF 04/26/2023 9:29 AM [facility] WBC UA 11-20(A) None Seen, 0-5 /HPF 04/26/2023 9:29 AM [facility] Squamous Epithelial Cells UA None Seen None Seen, 0-2, 3-5 /HPF 04/26/2023 9:29 AM [facility] Mucus UA 1+ /LPF 04/26/2023 9:29 AM [facility] Urine URINE SPECIMEN OBTAINED BY CLEAN CATCH PROCEDURE / Unknown Collection / Unknown 04/26/2023 8:44 AM BOX TRUCK DRIVER 04/26/2023 9:03 AM [facility] - 04/26/2023 9:29 AM BOX TRUCK DRIVER Nicola Echevarria MD LAB - URINALYSIS OR DERABLES Performing Organization Address [facility]/ZIP Co de Phone Number [address] [address] [phone] * (ABNORMAL) URINALYSIS REFLEX MICROSCOPIC REFLEX CULTURE (04/26/2023 8:44 AM BOX TRUCK DRIVER) Color UA Yellow Straw, Yellow 04/26/2023 9:24 AM [facility] Clarity UA Slt Cloudy(A) Clear 04/26/2023 9:24 AM [facility] Specific [place] UA 1.030 1.005 - 1.030 04/26/2023 9:24 AM [facility] pH UA 5.0 5.0 - 8.0 pH 04/26/2023 9:24 AM [facility] Protein UA 2+(A) Negative 04/26/2023 9:24 AM [facility] Glucose UA Negative Negative 04/26/2023 9:24 AM [facility] Ketone UA 1+(A) Negative 04/26/2023 9:24 AM [facility] Bilirubin UA Negative Negative 04/26/2023 9:24 AM [facility] Blood UA 3+(A) Negative 04/26/2023 9:24 AM [facility] Nitrite UA Negative Negative 04/26/2023 9:24 AM [facility] Leukocyte Esterase Negative Negative 04/26/2023 9:24 AM [facility] Urobilinogen UA 2.0(A) Negative mg/dL 04/26/2023 9:24 AM [facility] Urine URINE SPECIMEN OBTAINED BY CLEAN CATCH PROCEDURE / Unknown Collection / Unknown 04/26/2023 8:44 AM BOX TRUCK DRIVER 04/26/2023 9:03 AM [facility] - 04/26/2023 9:24 AM BOX TRUCK DRIVER Nicola Echevarria MD LAB - URINALYSIS OR DERABLES Performing Organization Address [facility]/ZIP Co de Phone Number [facility] [address] [place] [address], [facility] [phone] * CULTURE URINE (04/26/2023 8:44 AM BOX TRUCK DRIVER) Only the most recent of2 resultswithin the time period is included. Culture Urine 50,000-100,000 CFU/mL urogenital ca 04/28/2023 1:18 AM BOX TRUCK DRIVER [facility] MICROBIOLOGY Urine URINE SPECIMEN OBTAINED BY CLEAN CATCH PROCEDURE / Unknown Collection / Unknown 04/26/2023 8:44 AM BOX TRUCK DRIVER 04/26/2023 9:29 AM BOX TRUCK DRIVER Nicola Echevarria MD LAB - MICROBIOLOGY ORDERABLES Performing Organization Address [facility] Co de Phone Number [facility] MICROBIOLOGY [address] [place] [address], [facility] [phone] * (ABNORMAL) TSH REFLEX FREE T4 (04/26/2023 5:56 AM BOX TRUCK DRIVER) TSH 0.258(L) 0.350 - 4.940 uIU/mL 04/26/2023 6:52 AM BOX TRUCK DRIVER [facility] Blood BLOOD SPECIMEN / Unknown Venipuncture / Unknown 04/26/2023 5:56 AM BOX TRUCK DRIVER 04/26/2023 6:07 AM BOX TRUCK DRIVER Nicola Echevarria MD LAB - CHEMISTRY ORD ERABLES Performing Organization Address City/[facility]/ZIP Co de Phone Number [facility] [address] [place] [address], [place] [phone] * HEMOGLOBIN A1C (04/26/2023 5:56 AM BOX TRUCK DRIVER) Hemoglobin A1c 5.6 <=5.6 % 04/26/2023 9:20 AM BOX TRUCK DRIVER [facility] Estimated Average Glucose 114 mg/dL 04/26/2023 9:20 AM [facility] Comment: HbA1c Interpretation: Normal : < 5.7% Pre-diabetes: 5.7-6.4% Diabetes: Equal to or greater than 6.5% Test results diagnostic of diabetes should be repeated for confirmation. Treatment target values recommended by ADA and other clinical organizations should be used to evaluate metabolic control in patients. Reference: [place] [employer], Standards of Care in Diabetes -2020 In patients 70 years and older consider HbA1c target range of 7.0-7.5% (Reference: Lane Hernandez et al. COREENDA. 2012) The Sebia assay for the measurement of HbA1c is a National Glycohemoglobin Standardization Program (NGSP) certified method. Blood BLOOD SPECIMEN / Unknown Venipuncture / Unknown 04/26/2023 5:56 AM BOX TRUCK DRIVER 04/26/2023 6:07 AM BOX TRUCK DRIVER Nicola Echevarria MD LAB - CHEMISTRY ORD ERABLES [facility] [address] [place] [phone], [facility] [phone] * (ABNORMAL) CBC W AUTO DIFFERENTIAL (04/26/2023 5:56 AM BOX TRUCK DRIVER) Only the most recent of2 resultswithin the time period is included. WBC 8.4 4.0 - 10.7 x10E9/L 04/26/2023 6:12 AM [facility] RBC Count 4.15(L) 4.30 - 5.80 x10E12/L 04/26/2023 6:12 AM [facility] Hemoglobin 13.2(L) 13.3 - 17.5 g/dL 04/26/2023 6:12 AM [facility] Hematocrit 37.7(L) 38.7 - 51.1 % 04/26/2023 6:12 AM [facility] MCV 90.8 80.0 - 98.0 fL 04/26/2023 6:12 AM [facility] MCH 31.8 26.7 - 33.6 pg 04/26/2023 6:12 AM [facility] MCHC 35.0 31.7 - 36.3 g/dL 04/26/2023 6:12 AM [facility] RDW-CV 12.2 11.3 - 14.8 % 04/26/2023 6:12 AM [facility] Platelet Count 203 150 - 420 x10E9/L 04/26/2023 6:12 AM [facility] MPV 8.9 7.8 - 11.4 fL 04/26/2023 6:12 AM [facility] Neutrophil % 76.9(H) 41.0 - 74.0 % 04/26/2023 6:12 AM [facility] Lymphocyte % 14.0(L) 17.0 - 47.0 % 04/26/2023 6:12 AM [facility] Monocyte % 8.5 3.0 - 11.0 % 04/26/2023 6:12 AM [facility] Eosinophil % 0.0 0.0 - 7.0 % 04/26/2023 6:12 AM [facility] Basophil % 0.2 0.0 - 1.6 % 04/26/2023 6:12 AM [facility] Immature Granulocytes % 0.4 0.0 - 1.0 % 04/26/2023 6:12 AM [facility] Neutrophil Absolute 6.43 1.60 - 7.50 x10E9/L 04/26/2023 6:12 AM [facility] Lymphocyte Absolute 1.17 1.00 - 4.40 x10E9/L 04/26/2023 6:12 AM [facility] Monocyte Absolute 0.71 0.15 - 1.00 x10E9/L 04/26/2023 6:12 AM [facility] Eosinophil Absolute 0.00 0.00 - 0.60 x10E9/L 04/26/2023 6:12 AM [facility] Basophil Absolute 0.02 0.00 - 0.13 x10E9/L 04/26/2023 6:12 AM [facility] Blood BLOOD SPECIMEN / Unknown Venipuncture / Unknown 04/26/2023 5:56 AM BOX TRUCK DRIVER 04/26/2023 6:07 AM [facility] Nicola Echevarria MD LAB - HEMATOLOGY OR DERABLES Performing Organization Address City/State/[facility] Co de Phone Number [facility] [address] [place] [phone] [phone] * (ABNORMAL) COMPREHENSIVE METABOLIC PANEL (04/26/2023 5:56 AM [facility]) Only the most recent of2 resultswithin the time period is included. BUN 20 7 - 26 mg/dL 04/26/2023 6:34 AM [facility] Creatinine 1.49(H) 0.71 - 1.16 mg/dL 04/26/2023 6:34 AM [facility] Sodium 140 136 - 145 mmol/L 04/26/2023 6:34 AM [facility] Potassium 4.3 3.5 - 4.5 mmol/L 04/26/2023 6:34 AM [facility] Chloride 110(H) 98 - 107 mmol/L 04/26/2023 6:34 AM [facility] CO2 23 22 - 29 mmol/L 04/26/2023 6:34 AM [facility] Glucose 115 70 - 115 mg/dL 04/26/2023 6:34 AM [facility] Calcium 9.0 8.4 - 10.2 mg/dL 04/26/2023 6:34 AM [facility] Protein Total 7.1 6.0 - 8.3 g/dL 04/26/2023 6:34 AM [facility] Albumin 3.2(L) 3.4 - 5.0 g/dL 04/26/2023 6:34 AM [facility] Bilirubin Total 0.9 0.2 - 1.2 mg/dL 04/26/2023 6:34 AM [facility] Alkaline Phosphatase 48 40 - 150 U/L 04/26/2023 6:34 AM [facility] ALT 24 5 - 55 U/L 04/26/2023 6:34 AM [facility] AST 25 5 - 34 U/L 04/26/2023 6:34 AM [facility] Anion Gap 7 6 - 16 04/26/2023 6:34 AM [facility] BUN/Creatinine Ratio 13 7 - 23 04/26/2023 6:34 AM [facility] Osmolality Calculated 294 275 - 295 mOsm/kg 04/26/2023 6:34 AM [facility] Albumin/Globulin Ratio 0.8(L) 1.1 - 2.3 04/26/2023 6:34 AM [facility] eGFR by CKD-EPI 50(L) >=90 mL/min/1.7 3 m2 04/26/2023 6:34 AM [facility] Blood BLOOD SPECIMEN / Unknown Venipuncture / Unknown 04/26/2023 5:56 AM BOX TRUCK DRIVER 04/26/2023 6:07 AM BOX TRUCK DRIVER Nicola Echevarria MD LAB - CHEMISTRY ORD ERABLES [facility] [address] [place] [address], [facility] [phone] * PHOSPHORUS BLOOD (04/26/2023 5:56 AM BOX TRUCK DRIVER) Phosphorus 3.2 2.8 - 5.1 mg/dL 04/26/2023 6:34 AM [facility] Blood BLOOD SPECIMEN / Unknown Venipuncture / Unknown 04/26/2023 5:56 AM BOX TRUCK DRIVER 04/26/2023 6:07 AM BOX TRUCK DRIVER Nicola Echevarria MD LAB - CHEMISTRY ORD ERABLES [facility] [address] [place] [address], [facility] [phone] * ALCOHOL ETHYL BLOOD (04/26/2023 5:56 AM BOX TRUCK DRIVER) Ethanol (mg/dL) <10 <10 mg/dL 6:34 AM [facility] Ethanol Calculated (g/dL) <0.010 <=0.010 g/dL 04/26/2023 6:34 AM [facility] Blood BLOOD SPECIMEN / Unknown Venipuncture / Unknown 04/26/2023 5:56 AM BOX TRUCK DRIVER 04/26/2023 6:07 AM BOX TRUCK DRIVER Narrative [facility] - 04/26/2023 6:34 AM BOX TRUCK DRIVER Ethanol Interp <10: None Detected. Depression of BANKMAN: >100 mg/dl Potentially Critical: >250 mg/dl Potentially Fatal >400 mg/dl Ethanol in the patient's blood will contribute to the osmolar gap. Ethanol's contribution to the osmolar gap can be estimated by dividing the concentration of ethanol in mg/dL by 4.6. This test is for clinical use only and does not equal a PATT for legal purposes. Nicola Echevarria MD LAB - CHEMISTRY ORD ERABLES Performing Organization Address City/[facility] Co de Phone Number [address] [address], [facility] [phone] * T4 FREE (04/26/2023 5:56 AM BOX TRUCK DRIVER) T4 Free 1.0 0.7 - 1.5 ng/dL 04/26/2023 7:24 AM BOX TRUCK DRIVER [facility] Blood BLOOD SPECIMEN / Unknown Venipuncture / Unknown 04/26/2023 5:56 AM BOX TRUCK DRIVER 04/26/2023 6:07 AM BOX TRUCK DRIVER Nicola Echevarria MD LAB - CHEMISTRY ORD ERABLES Performing Organization Address [facility] Co de Phone Number [address] [address], [facility] [phone] * CORTISOL BLOOD AM (04/26/2023 5:56 AM BOX TRUCK DRIVER) Cortisol AM 17.3 3.7 - 19.4 ug/dL 04/26/2023 6:50 AM BOX TRUCK DRIVER [facility] Blood BLOOD SPECIMEN / Unknown Venipuncture / Unknown 04/26/2023 5:56 AM BOX TRUCK DRIVER 04/26/2023 6:06 AM BOX TRUCK DRIVER Narrative [facility] - 04/26/2023 6:50 AM BOX TRUCK DRIVER Normal cortisol levels are generally highest in the morning hours and lowest from late evening through the early childhood associate hours (8 PM to 4 AM). The PM measurements of cortisol run approximately one-half to one-third of the AM values. Nicola Echevarria MD LAB - CHEMISTRY ORD ERABLES Performing Organization Address City/[facility] Co de Phone Number [address] [address], [facility] [phone] * (ABNORMAL) LIPID PROFILE (04/26/2023 5:56 AM BOX TRUCK DRIVER) Cholesterol Total 106 <200 mg/dL 04/26/2023 6:34 AM [facility] HDL 32(L) >40 mg/dL 04/26/2023 6:34 AM [facility] Comment: ATP III Classification of HDL Cholesterol: <40 mg/dL: Considered a major risk factor. >60 mg/dL: Considered a negative risk factor. LDL Calculated 60 <100 mg/dL 04/26/2023 6:34 AM [facility] Comment: ATP III Classification of LDL Cholesterol: <100 mg/dL: Optimal 100 - 129 mg/dL: Near Optimal/Above Optimal 130 - 159 mg/dL: Borderline High 160 - 189 mg/dL: High >190 mg/dL: Very High Triglycerides 68 <150 mg/dL 04/26/2023 6:34 AM [facility] Comment: ATP III Classification of Triglycerides: <150 mg/dL: Normal 150 - 199 mg/dL: Borderline High 200 - 400 mg/dL: High >500 mg/dL: Very High Blood BLOOD SPECIMEN / Unknown Venipuncture / Unknown 04/26/2023 5:56 AM BOX TRUCK DRIVER 04/26/2023 6:07 AM BOX TRUCK DRIVER Nicola Echevarria MD LAB - CHEMISTRY ORD ERABLES [address] [address], [facility] [phone] * BLOOD TYPE VERIFICATION (04/25/2023 7:50 PM BOX TRUCK DRIVER) ABO Rh A POS 04/25/2023 8:3 3 PM [facility] BLOOD B[facility] LAB Blood Bank BLOOD SPECIMEN / Unknown Venipuncture / Unknown 04/25/2023 7:50 PM BOX TRUCK DRIVER 04/25/2023 8:01 PM BOX TRUCK DRIVER Nilesh Lopes MD LAB - BLOOD BANK ORD ERABLES [facility] BLOOD [facility] LAB [address] [facility] [place] [address], [facility] [phone] * CULTURE BLOOD (04/25/2023 6:54 PM BOX TRUCK DRIVER) Only the most recent of5 resultswithin the time period is included. Culture No growth day 5 JOSE ALEJANDRO 04/30/2023 10:31 PM BOX TRUCK DRIVER [facility] MICROBIOLOGY Blood PERIPHERAL BLOOD / Unknown Venipuncture / Unknown 04/25/2023 6:54 PM BOX TRUCK DRIVER 04/25/2023 7:07 PM BOX TRUCK DRIVER Frankie Esposito MD LAB - MICROBIOLOGY O RDERABLES [facility] MICROBIOLOGY [address] [place] [address], [facility] [phone] * CT HEAD WO CONTRAST (04/25/2023 5:56 PM BOX TRUCK DRIVER) Anatomical Region Laterality Modality Head Computed Tomogra phy 04/25/2023 6:08 PM BOX TRUCK DRIVER Impressions 04/25/2023 7:40 PM BOX TRUCK DRIVER IMPRESSION: 1.No acute intracranial hemorrhage. Report dictated by Kyle Cantu MD, PhD (vice president of nursing). IJulisa MD have personally reviewed and interpreted this examination/study. > Interpreting Provider: Julisa Wilhelm MD on 04/25/2023 7:40 PM Narrative 04/25/2023 7:40 PM BOX TRUCK DRIVER PROCEDURE: CT HEAD WO CONTRAST, DATE/TIME OF EXAM: 04/25/2023 5:58 PM, LOCATION [facility] INDICATION: R41.82: Altered mental status, unspecified altered mental status type EXAMINATION: Computed tomography (CT) of the head without contrast ADDITIONAL CLINICAL INFORMATION: Ordering Provider Reason For Exam: Bleed Technologist Note: None. Additional: None. TECHNIQUE: CT of the head was performed without contrast according to standard protocol. CT dose reduction technique was used, including Automated Exposure Control. COMPARISON: CT of the head and CT angiography of the head and neck from 04/17/2023 at 12:08 PM FINDINGS: No acute intra- or extra-axial fluid collections are identified. There is mild cerebral volume loss with associated ex vacuo ventricular dilatation. The basilar cisterns are patent. No mass effect or midline shift is seen. The lawson-white matter differentiation is normal. Periventricular white matter hypoattenuation is indicative of chronic small vessel ischemic disease. There is vascular calcification of the carotid siphons. No acute calvarial fracture is identified. Other than bilateral cataract extractions, the orbits appear normal. There is paranasal sinus disease. Extensive paranasal sinus disease and deformity involving the left maxillary sinus, grossly unchanged compared to prior. There are atherosclerotic calcifications of the right middle cerebral artery. Sclerosis of the lateral aspect of the mastoid air cells. The mastoid air cells are grossly clear. No soft tissue abnormality is identified. Procedure Note Julisa Wilhelm MD - 04/25/2023 PROCEDURE: CT HEAD WO CONTRAST, DATE/TIME OF EXAM: 04/25/2023 5:58 PM, LOCATION [facility] INDICATION: R41.82: Altered mental status, unspecified altered mental status type EXAMINATION: Computed tomography (CT) of the head without contrast ADDITIONAL CLINICAL INFORMATION: Ordering Provider Reason For Exam: Bleed Technologist Note: None. Additional: None. TECHNIQUE: CT of the head was performed without contrast according to standard protocol. CT dose reduction technique was used, including Automated Exposure Control. COMPARISON: CT of the head and CT angiography of the head and neck from 04/17/2023 at 12:08 PM FINDINGS: No acute intra- or extra-axial fluid collections are identified. Thereis mild cerebral volume loss with associated ex vacuo ventriculardilatation. The basilar cisterns are patent. No mass effect or midline shift isseen. The lawson-white matter differentiation is normal. Periventricular white matter hypoattenuation is indicative of chronic small vessel ischemic disease. There is vascular calcification of the carotid siphons. Noacute calvarial fracture is identified. Other than bilateral cataract extractions, the orbits appear normal. There is paranasal sinus disease. Extensive paranasal sinus disease and deformity involving the left maxillary sinus, grossly unchanged compared to prior. There are atherosclerotic calcifications of the right middle cerebral artery. Sclerosis of the lateral aspect of the mastoid air cells. The mastoidair cells are grossly clear. No soft tissue abnormality is identified. IMPRESSION: 1.No acute intracranial hemorrhage. Report dictated by Kyle Cantu MD, PhD (vice president of nursing). Julisa Zepeda MD have personally reviewed and interpretedthis examination/study. > Interpreting Provider: Julisa Wilhelm MD on 04/25/2023 7:40 PM Frankie Esposito MD CT ORDERABLES * CT ABDOMEN PELVIS WO CONTRAST (04/25/2023 5:56 PM BOX TRUCK DRIVER) Anatomical Region Laterality Modality Abdomen, Pelvis Computed Tomogra phy 04/25/2023 6:18 PM BOX TRUCK DRIVER Impressions 04/25/2023 11:16 PM BOX TRUCK DRIVER Impression: 1.Mild right-sided pelviectasis with an extrarenal pelvis. No left-sided hydronephrosis. Renal calculi cannot be completely excluded due to contrast in the collecting systems however no obstructing ureteric calculi are visualized. > Dictated by Jacob Allen MD (vice president of nursing). Sonia Zepeda MD have personally reviewed and interpreted this examination/study. > Interpreting Provider: Sonia Mcgovern MD on 04/25/2023 11:16 PM Narrative 04/25/2023 11:16 PM BOX TRUCK DRIVER PROCEDURE: CT ABDOMEN PELVIS WO CONTRAST, DATE/TIME OF EXAM: 04/25/2023 5:58 PM, LOCATION [facility] INDICATION: R41.82: Altered mental status, unspecified altered mental status type ADDITIONAL CLINICAL INFORMATION: Ordering Provider Reason For Exam: hydronephrosis COMPARISON: None. TECHNIQUE: CT of the abdomen and pelvis was performed without contrast according to standard protocol. Findings: Evaluation of visceral and vascular structures is degraded due to lack of intravenous contrast administration. Lower Chest: Bilateral dependent atelectasis. Coronary artery atherosclerotic calcification. Liver: Within the limitations of a noncontrast examination, the liver is unremarkable. Gallbladder and Bile Ducts: Normal. Spleen: Normal. Pancreas: Atrophic Adrenals: Normal Kidneys: Mild right pelviectasis with an extrarenal pelvis. No left-sided hydronephrosis. There is contrast in the collecting system of the bilateral kidney likely from prior studies. Evaluation of the kidneys stones is limited in this study due to retained contrast in the collecting system. Gastrointestinal: The stomach and visualized loops of large and small bowel are unremarkable. Sigmoid diverticulosis without evidence of diverticulitis. Normal appendix. Mesentery/Peritoneum/Retroperitoneum: No free fluid in the abdomen or pelvis. No free intraperitoneal air. No abdominal or retroperitoneal lymphadenopathy. Bladder: Normal. Reproductive Organs: Borderline prostatomegaly. Vasculature: Atherosclerotic calcification of the aorta and its branch vessels. IVC filter is present. Bones: Posterior spinal fusion of the lower thoracic, lumbar and sacral spine is present. Bone windows demonstrate no suspicious lytic or blastic lesions. The visible osseous structures are intact. Degenerative changes are seen in the spine. Soft tissues: There is stimulator is present in the soft tissue of the lower back. Procedure Note Huma Mcgovern MD - 04/25/2023 PROCEDURE: CT ABDOMEN PELVIS WO CONTRAST, DATE/TIME OF EXAM: 04/25/2023 5:58 PM, LOCATION [facility] INDICATION: R41.82: Altered mental status, unspecified altered mental status type ADDITIONAL CLINICAL INFORMATION: Ordering Provider Reason For Exam: hydronephrosis COMPARISON: None. TECHNIQUE: CT of the abdomen and pelvis was performed without contrast according to standard protocol. Findings: Evaluation of visceral and vascular structures is degraded due to lackof intravenous contrast administration. Lower Chest: Bilateral dependent atelectasis. Coronary artery atherosclerotic calcification. Liver: Within the limitations of a noncontrast examination, the liver is unremarkable. Gallbladder and Bile Ducts: Normal. Spleen: Normal. Pancreas: Atrophic Adrenals: Normal Kidneys: Mild right pelviectasis with an extrarenal pelvis. No left-sided hydronephrosis. There is contrast in the collecting system of thebilateral kidney likely from prior studies. Evaluation of the kidneys stones is limited in this study due to retained contrast in the collecting system. Gastrointestinal: The stomach and visualized loops of large and small bowel areunremarkable. Sigmoid diverticulosis without evidence of diverticulitis. Normalappendix. Mesentery/Peritoneum/Retroperitoneum: No free fluid in the abdomen or pelvis. No free intraperitoneal air. No abdominal or retroperitoneal lymphadenopathy. Bladder: Normal. Reproductive Organs: Borderline prostatomegaly. Vasculature: Atherosclerotic calcification of the aorta and its branch vessels. IVC filter is present. Bones: Posterior spinal fusion of the lower thoracic, lumbar and sacral spineis present. Bone windows demonstrate no suspicious lytic or blasticlesions. The visible osseous structures are intact. Degenerative changes are seenin the spine. Soft tissues: There is stimulator is present in the soft tissue of the lower back. Impression: 1.Mild right-sided pelviectasis with an extrarenal pelvis. No left-sided hydronephrosis. Renal calculi cannot be completely excluded due tocontrast in the collecting systems however no obstructing ureteric calculi are visualized. > Dictated by Jacob Allen MD (vice president of nursing). ISonia MD have personally reviewed and interpreted this examination/study. > Interpreting Provider: Sonia Mcgovern MD on 04/25/2023 11:16 PM [address] MD CT ORDERABLES * TROPONIN-I HIGH SENSITIVE (04/25/2023 1:00 PM BOX TRUCK DRIVER) Pathologist [facility] [place] Troponin I High Sensitive 4 <=35 ng/L 04/25/2023 1:47 PM BOX TRUCK DRIVER [facility] Blood BLOOD SPECIMEN / Unknown Venipuncture / Unknown 04/25/2023 1:00 PM BOX TRUCK DRIVER 04/25/2023 1:11 PM BOX TRUCK DRIVER Frankie Esposito MD LAB - CHEMISTRY CHELSIE ANDINO [facility] Organization Address City/State/ZIP Co de Phone Number [facility] [address] [place] [address], [facility] [phone] * B-TYPE NATRIURETIC PEPTIDE (04/25/2023 1:00 PM BOX TRUCK DRIVER) BNP <10 <100 pg/mL 04/25/2023 1:47 PM BOX TRUCK DRIVER [facility] Comment: A decision threshold of 100 pg/mL has been demonstrated to provide the maximal combination of sensitivity, specificity and predictive value for the diagnosis of congestive heart failure (CHF). Virtually all patients with no evidence of CHF have BNP values less than 100 pg/mL. A BNP value greater than 100 pg/mL is consistent with the diagnosis of CHF in the appropriate clinical setting. In a study of 693 patients (male and female) with diagnosed CHF, the following values were determined based on the NYHA functional classification system: NYHA Functional Class Mean Valule (pg/mL) % >100 pg/mL I 320 58.1 II 432 73.0 III 656 79.0 IV 1635 98.3 Blood BLOOD SPECIMEN / Unknown Venipuncture / Unknown 04/25/2023 1:00 PM BOX TRUCK DRIVER 04/25/2023 1:11 PM BOX TRUCK DRIVER Frankie Esposito MD LAB - CHEMISTRY CHELSIE ANDINO Performing Organization Address City/[facility]/ZIP Co de Phone Number [address] [address], [facility] [phone] * CK BLOOD (04/25/2023 1:00 PM BOX TRUCK DRIVER) CK Total 95 30 - 200 U/L 04/25/2023 1:43 PM BOX TRUCK DRIVER [facility] Blood BLOOD SPECIMEN / Unknown Venipuncture / Unknown 04/25/2023 1:00 PM BOX TRUCK DRIVER 04/25/2023 1:11 PM BOX TRUCK DRIVER Frankie Esposito MD LAB - CHEMISTRY CHELSIE ANDINO Performing Organization Address City/[facility]/ZIP Co de Phone Number [address] [address], [facility] [phone] * CT ANGIO BRAIN NECK STROKE (04/25/2023 12:20 PM BOX TRUCK DRIVER) Anatomical Region Laterality Modality Head Computed Tomogra phy 04/25/2023 12:3 5 PM BOX TRUCK DRIVER Impressions 04/25/2023 12:48 PM BOX TRUCK DRIVER IMPRESSION: 1. Small focal calcific focus in the right M1 segment with associated focal severe stenosis and patent distal branches. Otherwise no large arterial occlusions or significant stenosis in the head 2. No large arterial occlusions or significant stenoses identified in the neck. > Interpreting Provider: Danielle Chery MD on 04/25/2023 12:48 PM Narrative 04/25/2023 12:48 PM BOX TRUCK DRIVER PROCEDURE: CT ANGIO BRAIN NECK STROKE DATE/TIME OF EXAM: 04/25/2023 12:10 PM CLINICAL INFORMATION: None relevant/not provided if blank. Indication: Code Stroke Additional History: COMPARISON: None. TECHNIQUE: CT angiography of the brain and neck was performed without IV contrast followed by IV contrast, including 3D MIPS post processing CTA image reconstruction provided from an independent workstation. Stenosis measurements are based on NASCET criteria. CT dose reduction technique was used, including Automated Exposure Control. Additionally, Viz.AI was used for large vessel occlusion detection. CONTRAST: 75 mL of Isovue 370 FINDINGS:Non-angiographic findings: No evidence of acute hemorrhage. Please refer to CT head from same day for additional noncontrast details. No acute soft tissue abnormalities are identified in the neck. Angiographic findings: Evaluation is limited by motion artifact. The visible aortic arch appears normal. The configuration of the brachiocephalic vessels is typical. The innominate artery and both subclavian arteries appear patent without significant atherosclerosis.. There is atherosclerotic disease of the right carotid bifurcation and origin of the right internal carotid artery without focal stenosis by NASCET criteria. The right common and internal carotid arteries otherwise appear normal. There is atherosclerotic disease of the left carotid bifurcation and origin of the left internal carotid artery without focal stenosis by NASCET criteria. The left common and internal carotid arteries otherwise appear normal. The cervical vertebral arteries appear patent without significant stenosis however showed diminutive caliber bilaterally. There is atherosclerotic disease involving the distal internal carotid arteries without significant focal stenosis. The anterior cerebral arteries appear patent. Hypoplastic left A1 segment. There is small focal calcific focus most likely secondary to atherosclerosis in the proximal right M1 segment with the normal distal opacification of the right MCA branches. There is associated focal severe stenosis. Left MCA branches appear patent without significant stenosis or occlusion The distal vertebral arteries appear patent without significant stenosis or occlusion. The basilar artery and posterior cerebral arteries appear normal with origin of both posterior cerebral arteries. Diminutive caliber posterior circulation including the basilar and the intradural vertebral arteries most likely secondary to prominent anterior circulation. No aneurysms, vascular occlusions, or other intracranial stenoses are identified. Procedure Note Danielle Chery MD - 04/25/2023 PROCEDURE: CT ANGIO BRAIN NECK STROKE DATE/TIME OF EXAM: 04/25/2023 12:10 PM CLINICAL INFORMATION: None relevant/not provided if blank. Indication: Code Stroke Additional History: COMPARISON: None. TECHNIQUE: CT angiography of the brain and neck was performed without IV contrast followed by IV contrast, including 3D MIPS post processing CTA image reconstruction provided from an independent workstation. Stenosis measurements are based on NASCET criteria. CT dose reduction technique was used, including Automated ExposureControl. Additionally, Viz.AI was used for large vessel occlusion detection. CONTRAST: 75 mL of Isovue 370 FINDINGS:Non-angiographic findings: No evidence of acute hemorrhage. Please refer to CT head from same dayfor additional noncontrast details. No acute soft tissue abnormalities are identified in the neck. Angiographic findings: Evaluation is limited by motion artifact. The visible aortic arch appears normal. The configuration of the brachiocephalic vessels is typical. The innominate artery and both subclavian arteries appear patent without significant atherosclerosis.. There is atherosclerotic disease of the right carotid bifurcation and origin of the right internal carotid artery without focal stenosis by NASCET criteria. The right common and internal carotid arteriesotherwise appear normal. There is atherosclerotic disease of the left carotid bifurcation and origin of the left internal carotid artery without focal stenosis by NASCET criteria. The left common and internal carotidarteries otherwise appear normal. The cervical vertebral arteries appear patent without significant stenosis however showed diminutive caliberbilaterally. There is atherosclerotic disease involving the distal internal carotid arteries without significant focal stenosis. The anterior cerebralarteries appear patent. Hypoplastic left A1 segment. There is small focalcalcific focus most likely secondary to atherosclerosis in the proximal right M1 segment with the normal distal opacification of the right MCA branches. There is associated focal severe stenosis. Left MCA branches appearpatent without significant stenosis or occlusion The distal vertebral arteries appear patent without significant stenosis or occlusion. The basilarartery and posterior cerebral arteries appear normal with origin of both posterior cerebral arteries. Diminutive caliber posterior circulation including the basilar and the intradural vertebral arteries most likely secondary to prominent anterior circulation. No aneurysms, vascular occlusions, or other intracranial stenoses are identified. IMPRESSION: 1. Small focal calcific focus in the right M1 segment with associatedfocal severe stenosis and patent distal branches. Otherwise no large arterial occlusions or significant stenosis in the head 2. No large arterial occlusions or significant stenoses identified inthe neck. > Interpreting Provider: Danielle Chery MD on 04/25/2023 12:48 PM Nilesh Lopes MD CT ORDERABLES * TYPE + SCREEN PANEL (04/25/2023 12:16 PM BOX TRUCK DRIVER) Antibody Screen NEG 1:00 PM [facility] ABO Rh A POS 04/25/2023 1:00 PM BOX TRUCK DRIVER [facility] Blood Bank BLOOD SPECIMEN / Unknown Venipuncture / Unknown 04/25/2023 12:16 PM BOX TRUCK DRIVER 04/25/2023 12:24 PM BOX TRUCK DRIVER Nilesh Lopes MD LAB - BLOOD BANK ORD ERABLES Performing Organization Address City/[facility]/ZIP Co de Phone Number [facility] [address] [place] [address], [facility] [phone] * (ABNORMAL) INR WHOLE BLOOD - POINT OF CARE (IP) STROKE (04/25/2023 12:10 PM BOX TRUCK DRIVER) INR 1.6(H) 0.9 - 1.2 04/25/2023 12:12 PM [facility] Device [id number] 04/25/2023 12:12 PM [facility] Day Guard ID [id number] 04/25/2023 12:12 PM [facility] Blood BLOOD SPECIMEN / Unknown 04/25/2023 12:10 PM BOX TRUCK DRIVER 04/25/2023 12:12 PM BOX TRUCK DRIVER Provider Unknown LAB - POINT OF CARE ORDERABLES Performing Organization Address City/[facility]/ZIP Co de Phone Number [facility] [address] [place] [address], [facility] [phone] * (ABNORMAL) CREATININE - POCT INTERFACED (04/25/2023 12:10 PM BOX TRUCK DRIVER) Creatinine POCT 1.15 0.30 - 1.30 mg/dL 04/25/2023 12:12 PM [facility] eGFR 68(L) >90 mL/min/1.7 3 m2 04/25/2023 12:12 PM [facility] Blood BLOOD SPECIMEN / Unknown 04/25/2023 12:10 PM BOX TRUCK DRIVER 04/25/2023 12:12 PM BOX TRUCK DRIVER Provider Unknown LAB - POINT OF CARE ORDERABLES [facility] [address] [place] [address], [facility] [phone] * CT BRAIN - Stroke (04/25/2023 12:08 PM BOX TRUCK DRIVER) Anatomical Region Laterality Modality Head Computed Tomogra phy 04/25/2023 12:1 1 PM BOX TRUCK DRIVER Impressions 04/25/2023 12:22 PM BOX TRUCK DRIVER IMPRESSION: 1.No acute intracranial process. No CT evidence of large vascular infarct. Specifically, no acute intracranial hemorrhage as clinically queried. These findings were discussed in detail with the patient's care provider, Dr. Jessi Cano by Dr. Kyle Cantu (verified by Danielle CARRILLO) via telephone at 1213 hrs on 04/25/2023 with readback comprehension and verification. Report dictated by Kyle Cantu MD, PhD (vice president of nursing). I, Danielle Chery MD have personally reviewed and interpreted this examination/study. > Interpreting Provider: Danielle Chery MD on 04/25/2023 12:22 PM Narrative 04/25/2023 12:22 PM BOX TRUCK DRIVER PROCEDURE: CT BRAIN STROKE, DATE/TIME OF EXAM: 04/25/2023 12:11 PM, LOCATION [facility] INDICATION: Code Stroke ADDITIONAL CLINICAL INFORMATION: Ordering Provider Reason For Exam: Technologist Note: Additional: Right-sided weakness. Last normal 2100 hours, yesterday. COMPARISON: None. TECHNIQUE: CT of the head was performed without contrast according to standard protocol. CT dose reduction technique was used, including Automated Exposure Control FINDINGS: No acute intra- or extra-axial hemorrhage is identified. The ventricles are of normal size, shape, and morphology. The basilar cisterns are patent. No mass effect or midline shift is seen. The lawson-white matter differentiation is normal. No acute calvarial fracture is identified. The orbits and the orbital contents appear normal. There is mild paranasal sinus disease. Hypoplastic left maxillary sinus. Cerumen the bilateral external auditory canals. The mastoid air cells are clear. No soft tissue abnormality is identified. Procedure Note Danielle Chery MD - 04/25/2023 PROCEDURE: CT BRAIN STROKE, DATE/TIME OF EXAM: 04/25/2023 12:11 PM, LOCATION [facility] INDICATION: Code Stroke ADDITIONAL CLINICAL INFORMATION: Ordering Provider Reason For Exam: Technologist Note: Additional: Right-sided weakness. Last normal 2100 hours, yesterday. COMPARISON: None. TECHNIQUE: CT of the head was performed without contrast according to standard protocol. CT dose reduction technique was used, including Automated Exposure Control FINDINGS: No acute intra- or extra-axial hemorrhage is identified. The ventriclesare of normal size, shape, and morphology. The basilar cisterns are patent.No mass effect or midline shift is seen. The lawson-white matterdifferentiation is normal. No acute calvarial fracture is identified. The orbits and the orbital contents appear normal. There is mild paranasal sinus disease. Hypoplastic left maxillary sinus. Cerumen the bilateral externalauditory canals. The mastoid air cells are clear. No soft tissue abnormality is identified. IMPRESSION: 1.No acute intracranial process. No CT evidence of large vascularinfarct. Specifically, no acute intracranial hemorrhage as clinically queried. These findings were discussed in detail with the patient's careprovider, Dr. Jessi Cano by Dr. Kyle Cantu (verified by Danielle CARRILLO) via telephone at 1213 hrs on 04/25/2023 withreadback comprehension and verification. Report dictated by Kyle Cantu MD, PhD (vice president of nursing). I, Danielle Chery MD have personally reviewed and interpreted this examination/study. > Interpreting Provider: Danielle Chery MD on 04/25/2023 12:22 PM Nilesh Lopes MD CT ORDERABLES * DERMATOPATHOLOGY (11/23/2022 12:00 AM CDT) Case Report Dermatopathology Report Case: [id number] Authorizing Provider: Samuel Snyder MD Collected: 11/23/2022 12:00 AM Ordering Location: [facility] DermPath Lab Received: 11/24/2022 11:58 AM Pathologist: Maria Dolores Gaytan MD Specimen: Skin, right shoulder 08/30/202 3 2:35 PM CDT DERMATOPATHOLOGY LABORATORY Final Diagnosis Specimen A. SKIN, right shoulder: BASAL CELL CARCINOMA (C44.519) NOT PRESENT AT MARGIN DERMAL SCAR (L90.5) 3 2:35 PM CDT DERMATOPATHOLOGY LABORATORY Clinical History Basal Cell Carcinoma . Check Margins 2:35 PM CDT DERMATOPATHOLOGY LABORATORY Gross Description Specimen A: Received is one formalin filled container labeled with the patient's name and designated right shoulder. The specimen consists of a non-oriented ellipse of skin measuring [id number] mm. The margin is inked green. The [...] are oriented perpendicular to the skin surface. 3 2:35 PM CDT DERMATOPATHOLOGY LABORATORY Disclaimer An external and internal positive and negative controls are appropriate for the histochemical, immunohistochemical and immunofluorescence stain(s) in this case (if any), except where stated explicitly. The performance characteristics of the stain(s) cited in this report were developed and its performance characteristic determined by the Dermatopathology Laboratory at [facility], directed by Dr. Yamilet Smith. These tests need not be, and therefore are not, approved by the [place] Food and Drug Administration. The tests are used for clinical purposes. Billing Codes Specimen Charges Stain Charges 82019 1 3 2:35 PM CDT DERMATOPATHOLOGY LABORATORY Embedded Images 2:35 PM CDT DERMATOPATHOLOGY LABORATORY Pathology/Cytolog y TISSUE SPECIMEN FROM SKIN / Unknown 11/23/2022 11/24/2022 11:58 AM CDT Samuel Snyder MD LAB - PATHOLOGY/CYTO LOGY ORDERABLES DERMATOPATHOLOGY LABORATORY [facility] - Department of Dermatology [address] [phone] * CULTURE SPUTUM+GRAM STAIN (02/17/2014 5:24 PM BOX TRUCK DRIVER) Culture Sputum No Growth at 48 hours [facility] Gram Stain Few Polymorphonuclear Cells [facility] Gram Stain No Organism Seen [facility] Sputum specimen (specimen) SPUTUM / Unknown 02/17/2014 5:24 PM BOX TRUCK DRIVER 02/17/2014 9:17 PM BOX TRUCK DRIVER Narrative [facility] - 02/20/2014 11:31 AM BOX TRUCK DRIVER WilliamsSpecimen#[id number] Williams Loc/Rm/Bed: ICU/ICU/04 Gram Stains are routinely screened for the presence of Polymorphonuclear Cells. Historical Provider LAB - MICROBIOLOG Y ORDERABLES [address] [phone] * CULTURE MRSA (02/17/2014 3:16 PM BOX TRUCK DRIVER) Culture MRSA Screen No Growth of Methicillin Resistant Staphylococcus aureus. [facility] Nasopharyngeal 02/17/2014 3: 16 PM BOX TRUCK DRIVER 02/17/2014 9:07 PM BOX TRUCK DRIVER Narrative [facility] - 02/19/2014 9:24 AM BOX TRUCK DRIVER AndersonSpecimen#[id number] Williams Loc/Rm/Bed: ICU/ICU/04 Historical Provider LAB - MICROBIOLOG Y ORDERABLES [address] [phone] * CULTURE CSF+GRAM STAIN (02/17/2014 1:34 PM BOX TRUCK DRIVER) Culture CSF No Growth at 1 week [facility] Spinal fluid (substance) 02/17/2014 1:34 PM BOX TRUCK DRIVER 02/17/2014 9:13 PM BOX TRUCK DRIVER Narrative [facility] - 02/25/2014 2:41 PM BOX TRUCK DRIVER AndersonSpecimen#[id number] Williams Loc/Rm/Bed: ICU/ICU/04 Historical Provider LAB - MICRO[place] [address], [facility] [phone] * CULTURE AFB+SMEAR (02/17/2014 1:34 PM BOX TRUCK DRIVER) Culture Acid Fast Bacilli No Growth of Acid Fast bacilli after 8 weeks. [facility] AFB Smear No Acid Fast bacilli seen on direct smear. [facility] Spinal fluid (substance) 02/17/2014 1:34 PM BOX TRUCK DRIVER 02/17/2014 9:13 PM BOX TRUCK DRIVER Narrative [facility] - 04/16/2014 1:44 PM BOX TRUCK DRIVER AndersonSpecimen#[id number] Williams Loc/Rm/Bed: ICU/ICU/04 Historical Provider LAB - MICROBIOLOG Y ORDERABLES Performing Organization Address [facility] [place] [address], [facility] [phone] * CULTURE FUNGUS OTHER+FUNGUS SMEAR (02/17/2014 1:29 PM BOX TRUCK DRIVER) Culture Fungus-Other No Growth Fungi. [facility] Fungus Smear No Fungi seen. [facility] Spinal fluid (substance) 02/17/2014 1:29 PM BOX TRUCK DRIVER 02/17/2014 9:17 PM BOX TRUCK DRIVER Narrative [facility] - 03/19/2014 2:13 PM BOX TRUCK DRIVER AndersonSpecimen#[id number] Williams Loc/Rm/Bed: ICU/ICU/04 GI LAB Source: n Historical Provider LAB - MICRO[place]OLOG [place] [address], [facility] [phone] Care Teams Oracle Database Architect Relationship Specialty Start Date End Date Afshin Kirby, DO [address] [place] [address] PCP - General 07/25/09
--- OUTSIDE RECORDS SUMMARY | 2024-05-05 10:00 | XMS_ITS | Referral Summary ---
Author Organization [facility] [address] Address [address] [place] [address] Care Team Providers Care Snout Puller Name Role Phone Afshin Kirby MD Primary Care Provider [phone] Allergies Active Allergy Reactions Criticality Noted Date [...] (08/24/2019): Added automatically from request for surgery [id number] Spinal stenosis, lumbar kenny on, with neurogenic claudication 08/24/2019 Overview (08/24/2019): Added automatically from request for surgery [id number] Chronic obstructive pulmonary disease 04/13/2014 Bronchial asthma 04/13/2014 Hypertension 04/13/2014 Hyperlipidemia 04/13/2014 Obstructive sleep apnea syndrome 04/13/2014 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 Anxiety 04/13/2014 Lumbago 04/13/2014 Seizure 04/13/2014 Social History Tobacco Use Types Packs/Day Years Used Date Smoking Tobacco: Former Cigarettes 1 30 1 970 - 1999 Smokeless Tobacco: Former Quit: 1999 Alcohol Use Standard Drinks/Week Comments Not Currently 0 (1 standard drink = 0.6 oz pur e alcohol) Sex and Gender Information Value Date Recorded Sex Assigned at Not on file Legal Sex Male 7:43 PM JAVASCRIPT UI DEVELOPER Gender Identity Not on file Sexual Orientation Not on file Last Filed Vital Signs Vital Sign Reading Time Taken Comments Blood Pressure 125/60 10/21/2019 10:51 AM CDT Pulse 68 10/21/2019 10:51 AM CDT Temperature 37 C (98.6 F) 10/21/2019 8:00 AM CDT Respiratory Rate 18 10/21/2019 8:00 AM CDT Oxygen Saturation 97% 10/21/2019 10: 51 AM CDT Inhaled Oxygen Concentration - - Weight 104.9 kg (231 lb 3.2 oz) 020 11:41 AM JAVASCRIPT UI DEVELOPER Height 180.3 cm (5' 11 ) 01/30/2020 11: 41 AM JAVASCRIPT UI DEVELOPER Body Mass Index 32.25 01/30/2020 11:41 AM JAVASCRIPT UI DEVELOPER Plan of Treatment Not on file Medical Devices Implanted Type Area Donor Technician Device Identifier Shelf Expiration Date Model / Serial / Lot Neurostimulator Neurostimu lator Back Medtronic Neuro [id number] / / Bard Peripheral Vascular [id number] Ramsey Delivery Kit Vena Cava Jugular Filter Embolization Nitinol Latex Free - [id number] Implanted:Qty: 1 on 10/12/2019 at [facility] [employer] 09/25/2022 [id number] / / [id number] Medtronic Sofamor Danek [id number] Infuse 18mm 26mm Absorbable Sponge Sterile Water Syringe Needle - [id number] Implanted:Qty: 1 on 10/13/2019 by Clarke Logan MD at [facility] N/A: Spine Lumbar Medtronic Inc 10/27/2020 [id number] / / [id number] Musculoskeletal Transplant [id number] Allograft; Chips; Frozen; Morselize .1-4 Mm Filler 30 Cc Bone Voi - [id number] - [id number] Implanted:Qty: 1 on 10/13/2019 by Clarke Logan MD at [facility] N/A: Spine Lumbar Musculoskeletal Transplant 08/13/2023 [id number] / [id number] / Allosource [id number] Crushed Chip Frozen Graft 90ml Bone Cancellous - [id number] - [id number] Implanted:Qty: 1 on 10/13/2019 by Clarke Logan MD at [facility] N/A: Spine Lumbar Allosource 07/21/2024 [id number] / [id number] / Allosource [id number] Crushed Chip Frozen Graft 90ml Bone Cancellous - [id number] - [id number] Implanted:Qty: 1 on 10/13/2019 by Clarke Logan MD at [facility] N/A: Spine Lumbar Allosource 07/19/2024 [id number] / [id number] / Depuy Spine [id number] Expedium 6.5mm 50mm Polyaxial Spine Screw Bone Titanium 5.5mm Xu - [id number] Implanted:Qty: 5 on 10/13/2019 by Clarke Logan MD at [facility] N/A: Spine Lumbar Depuy Spine [id number] / / Depuy Spine [id number] Expedium 6.5mm 55mm Polyaxial Spine Screw Bone Titanium 5.5mm Xu - [id number] Implanted:Qty: 3 on 10/13/2019 by Clarke Logan MD at [facility] N/A: Spine Lumbar Depuy Spine [id number] / / Depuy Spine [id number] Expedium 6.5mm 60mm Polyaxial Spine Screw Bone Titanium 5.5mm Xu - [id number] Implanted:Qty: 4 on 10/13/2019 by Clarke Logan MD at [facility] N/A: Spine Lumbar Depuy Spine [id number] / / Depuy Spine [id number] Expedium 7mm 55mm 1 Innie Polyaxial Spine Screw Bone Titanium - [id number] Implanted:Qty: 1 on 10/13/2019 by Clarke Logan MD at [facility] N/A: Spine Lumbar Depuy Spine [id number] / / Depuy Spine [id number] Expedium 7mm 60mm 1 Innie Polyaxial Spine Screw Bone Titanium - [id number] Implanted:Qty: 1 on 10/13/2019 by Clarke Logan MD at [facility] N/A: Spine Lumbar Depuy Spine [id number] / / Depuy Spine [id number] Expedium 7.5mm 50mm 1 Innie Polyaxial Spine Screw Bone Titanium - [id number] Implanted:Qty: 1 on 10/13/2019 by Clarke Logan MD at [facility] N/A: Spine Lumbar Depuy Spine [id number] / / Depuy Spine [id number] Expedium 7.5mm 55mm 1 Innie Polyaxial Spine Screw Bone Titanium - [id number] Implanted:Qty: 1 on 10/13/2019 by Clarke Logan MD at [facility] N/A: Spine Lumbar Depuy Spine [id number] / / Depuy Spine [id number] Expedium Viper 8mm 100mm Polyaxial Spine Sacral Alar Iliac Screw - [id number] Implanted:Qty: 2 on 10/13/2019 by Clarke Logan MD at [facility] N/A: Spine Lumbar Depuy Spine [id number] / / Depuy Spine [id number] Expedium 5.5mm 65mm Line Prebent Xu Spinal Titanium Nonsterile - [id number] Implanted:Qty: 1 on 10/13/2019 by Clarke Logan MD at [facility] N/A: Spine Lumbar Depuy Spine [id number] / / Depuy Spine [id number] Expedium 5.5mm 55mm Line Prebent Xu Spinal Titanium Nonsterile - [id number] Implanted:Qty: 1 on 10/13/2019 by Clarke Logan MD at [facility] N/A: Spine Lumbar Depuy Spine [id number] / / Depuy Spine [id number] Expedium 1 Inner Monoaxial Spine Screw Set Titanium - [id number] Implanted:Qty: 18 on 10/13/2019 by Clarke Logan MD at [facility] N/A: Spine Lumbar Depuy Spine [id number] / / Depuy Spine [id number] Viper 2 600mm Straight Xu Spinal Cocr - [id number] Implanted:Qty: 1 on 10/13/2019 by Clarke Logan MD at [facility] N/A: Spine Lumbar Depuy Spine [id number] / / Integra Lifesciences [place] [id number] Duragen Plus 2x2in Patch Resorbable Suturable Cranial Dura Graft - [id number] Implanted:Qty: 1 on 10/13/2019 by Clarke Logan MD at [facility] N/A: Spine Lumbar Integra Lifesciences Navarro [id number] / / Medtronic Sofamor Danek [id number] Infuse 18mm 26mm Absorbable Sponge Sterile Water Syringe Needle - [id number] Implanted:Qty: 1 on 10/13/2019 by Clarke Logan MD at [facility] N/A: Spine Lumbar Medtronic Inc 10/27/2020 [id number] / / [id number] Explanted Type Area Donor Technician Device Identifier Shelf Expiration Date Model / Serial / Lot Screws Explanted:Qty: 8 on 10/13/2019 by Clarke Logan MD at [facility] N/A: Spine Lumbar Depuy Synthes Spine Rods Explanted:Qty: 2 on 10/13/2019 at [facility] N/A: Spine Lumbar Depuy Synthes Spine Crosslink Explanted:Qty: 1 on 10/13/2019 at [facility] N/A: Spine Lumbar Depuy Synthes Spine Connectors Explanted:Qty: 8 on 10/13/2019 at [facility] N/A: Spine Lumbar Depuy Synthes Spine Nuts Explanted:Qty: 8 on 10/13/2019 at [facility] N/A: Spine Lumbar Depuy Synthes Spine Insurance [facility] HMO REF [facility] Address: [address] [address] [place] [address] [facility] ADVANTAGE CON [facility] HMO REF [facility] HEALTHCARE [facility] Advance Directives For more information, please contact: [phone] * Full Code (Latest Code Status on File) Date Activated Date Inactivated Comments 10/13/2019 9:43 PM 10/21/2019 6:52 PM * Full Code Date Activated Date Inactivated Comments 10/12/2019 10:19 AM 10/12/2019 4:09 PM Care Teams Snout Puller Relationship Specialty Start Date End Date Afshin Kirby MD [address] [place] [id number] PCP - General Internal Medicine 09/16/16
--- OUTSIDE RECORDS SUMMARY | 2024-05-05 10:00 | XMS_ITS | Referral Summary ---
Author Organization [facility] [employer] Address [address] [place] [address] Care Team Providers Care Cold Meat Cook Name Role Phone Afshin Kirby Mk MCNEILL Primary Care Provider [phone] Source Comments [facility] [employer],non-owned Affiliates and Associated Physician Practices is amultiple site organization consisting of ambulatory clinics and hospital sitesin [place], [place], [place] and [place]. This disclosure is being madepursuant to the Care Everywhere program and may not contain all information available regarding this patient. Last updated 17.[facility] [employer] Medications * Be aware that medications may not be up to date on this document. Alwaysverify current medications with the patient. Medication Sig Dispensed Refills Start Date End Date Status baclofen (Lioresal) 10 MG tablet Take 1 (one) tablet by mouth 3 times daily May cause drowsiness. Active citalopram (CeleXA) 20 MG tablet Take 1 (one) tablet by mouth once daily Active gabapentin (Neurontin) 100 MG capsule Take 1 (one) capsule by mouth 3 times daily Active lisinopril (Prinivil; Zestril) 20 MG tablet Take 1 (one) tablet by mouth once daily Active rosuvastatin (Crestor) 5 MG tablet Take 1 (one) tablet by mouth once daily Active ALPRAZolam (Xanax) 0.5 MG tablet Take 1 (one) tablet by mouth 3 times daily as needed for Anxiety Active traMADol (Ultram) 50 MG tablet Take 1 (one) tablet by mouth every 6 hours as needed for Pain Active Active Problems Problem Noted Date Diagnosed [...] and heating? Not hard at all 04/28/2023 [facility] - Occupational Stress [...] money to buy more. Never true 04/28/19 Within the past 12 months, t he [...] place to sleep or slept in a custodial (including now)? No 04/28/2023 Sex and Gender Information Value Date Recorded Sex Assigned at Not on file Gender Identity Not on file Sexual Orientation Not on file Last Filed Vital Signs Vital Sign Reading Time Taken Comments Blood Pressure 117/62 04/29/2023 11:42 AM [facility] HOME AIDE Pulse 63 04/29/2023 11:42 AM [facility]UR[facility] HOME AIDE Temperature 37 C (98.6 F) 04/29/2023 11:42 AM NURSING HOME AIDE Respiratory Rate 18 04/29/2023 4:49 AM NURSING HOME AIDE Oxygen Saturation 96% 04/29/2023 11:42 AM NURSING HOME AIDE Inhaled Oxygen Concentration - - Weight 99.8 kg (220 lb 0.3 oz) 04/28/2023 1:25 A M [facility]URSING HOME AIDE Height 180.3 cm (5' 11 ) 04/28/2023 1:25 AM NURSING HOME AIDE Body Mass Index 30.69 04/28/2023 1:25 AM NURSING HOME AIDE Functional Status Functional Status Response Date of Assess ment Is person deaf or have serious hearing difficult y? No 04/28/2023 Is person blind or have serious difficulty seein g? No 04/28/2023 Does person have serious dif ficulty walking/climbing stairs? No 04/28/2023 Does person have difficulty dressing/bathing? Ye s 04/28/2023 Does person have difficulty doing errands alone? Yes 04/28/2023 Cognitive Status Response Date of Assessm ent Does person have difficulty concentrating/remembering/making decisions? Yes 04/28/2023 Plan of Treatment Not on file Medical Devices Implanted Type Area Platen Press Feeder Device Identifier Shelf Expiration Date Model / Serial / Lot Abandoned Lead Spinal Cord Stimulator Procedures Procedure Name Priority Date/Time Associated Diagnosis Comments RENAL FUNCTION PANEL AM Draw 04/28/2023 5:33 AM NURSING HOME AIDE HEMOGLOBIN A1C NIKKI 04/26/2023 5:56 AM NURSING HOME AIDE from Last 3 Months or Most Recently Relevant to Health Maintenance Results * (ABNORMAL) RENAL FUNCTION PANEL (04/28/2023 5:33 AM [facility]) BUN 23 7 - 26 mg/dL 04/28/2023 7:34 AM [facility] Creatinine 1.26(H) 0.71 - 1.16 mg/dL 04/28/2023 7:34 AM [facility] Sodium 139 136 - 145 mmol/L 04/28/2023 7:34 AM [facility] Potassium 3.9 3.5 - 4.5 mmol/L 04/28/2023 7:34 AM [facility] Chloride 111(H) 98 - 107 mmol/L 04/28/2023 7:34 AM [facility] CO2 23 22 - 29 mmol/L 04/28/2023 7:34 AM [facility] Glucose 84 70 - 115 mg/dL 04/28/2023 7:34 AM [facility] Albumin 3.0(L) 3.4 - 5.0 g/dL 04/28/2023 7:34 AM [facility] Calcium 9.0 8.4 - 10.2 mg/dL 04/28/2023 7:34 AM [facility] Phosphorus 2.4(L) 2.8 - 5.1 mg/dL 04/28/2023 7:34 AM [facility] Anion Gap 5(L) 6 - 16 04/28/2023 7:34 AM [facility] BUN/Creatinine Ratio 18 7 - 23 04/28/2023 7:34 AM [facility] Osmolality Calculated 291 275 - 295 mOsm/kg 04/28/2023 7:34 AM [facility] eGFR by CKD-EPI 61(L) >=90 mL/min/1.7 3 m2 04/28/2023 7:34 AM [facility] Blood BLOOD SPECIMEN / Unknown Lab Venipuncture / Unknown 04/28/2023 5:33 AM [facility]URSING HOME AIDE 04/28/2023 7:07 AM [facility] Mirtha Ontiveros MD LAB - CHEMISTRY ORDE RABLES [facility] [address] [place] [address], [place] [phone] * HEMOGLOBIN A1C (04/26/2023 5:56 AM [facility]) Hemoglobin A1c 5.6 <=5.6 % 04/26/2023 9:20 AM [facility] Estimated Average Glucose 114 mg/dL 04/26/2023 9:20 AM [facility] Comment: HbA1c Interpretation: Normal : < 5.7% Pre-diabetes: 5.7-6.4% Diabetes: Equal to or greater than 6.5% Test results diagnostic of diabetes should be repeated for confirmation. Treatment target values recommended by ADA and other clinical organizations should be used to evaluate metabolic control in patients. Reference: [place] [employer], Standards of Care in Diabetes -2020 In patients 70 years and older consider HbA1c target range of 7.0-7.5% (Reference: Lane Hernandez et al. JAMDA. 2012) The Sebia assay for the measurement of HbA1c is a National Glycohemoglobin Standardization Program (NGSP) certified method. Blood BLOOD SPECIMEN / Unknown Venipuncture / Unknown 04/26/2023 5:56 AM NURSING HOME AIDE 04/26/2023 6:07 AM [facility] Nicola Echevarria MD LAB - CHEMISTRY ORD ERABLES [facility] [address] [place] [address], [facility] [phone] from Last 3 Months or Most Recently Relevant to Health Maintenance Advance Directives * Full Code (Latest Code Status on File) Date Activated Date Inactivated Comments 04/25/2023 8:08 PM 04/29/2023 5:19 PM Care Teams Cold Meat Cook Relationship Specialty Start Date End Date Afshin Kirby DO [address] [facility] [address] [place] [address] PCP - General 07/25/09
--- OUTSIDE RECORDS SUMMARY | 2024-05-05 10:00 | XMS_ITS | Clinical Summary ---
Author Organization [facility] Address [facility] [place] [address] Care Team Providers Care [employer] Technician Name Role Phone Maude Perdomo DO Primary Care Provider [phone] Allergies Active Allergy Reactions Criticality Noted Date Comments Morphine Hives,Nausea and Vomiting Low 03/06/2024 Medications rosuvastatin (CRESTOR) 5 MG tablet Take 1 tablet (5 mg total) by mouth daily. Active lisinopril (PRINIVIL) 20 MG tablet Take 1 tablet (20 mg total) by mouth daily. Active baclofen (LIORESAL) 10 MG tablet Take 1 tablet (10 mg total) by mouth 3 (three) times daily as needed. Active ALPRAZolam (XANAX) 0.5 MG tablet Take 1 tablet (0.5 mg total) by mouth 2 (two) times daily as needed. FOR ANXIETY Active celecoxib (CELEBREX) 100 MG capsuleIndication s:Other osteoarthritis of spine, lumbar region,Spinal stenosis, lumbar region, with neurogenic claudication TAKE 1 CAPSULE(10 0 MG) BY MOUTH TWICE DAILY 60 capsule 04/10/19 25 Active empagliflozin (JARDIANCE) 10 MG tabletIndications :Stage 3 chronic kidney disease, unspecified whether stage 3a or 3b CKD (CMS/HCC HHS/HCC) Take 1 tablet (10 mg total) by mouth daily. 100 tablet 04/10/19 25 025 Active gabapentin (NEURONTIN) 300 MG capsuleIndication s:Spinal stenosis, lumbar region, with neurogenic claudication Take 1 capsule (300 mg total) by mouth 2 (two) times daily for 30 days. 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 025 Discontinued(Ot her- Please enter comment in Notes field) celecoxib (CELEBREX) 100 MG capsuleIndication s:Other osteoarthritis of spine, lumbar region,Spinal stenosis, lumbar region, with neurogenic claudication Take 1 capsule (100 mg total) by mouth 2 (two) times daily for 30 days. 60 capsule 03/13/20 24 025 Discontinued gabapentin (NEURONTIN) 300 MG capsuleIndication s:Spinal stenosis, lumbar region, with neurogenic claudication Take 1 capsule (300 mg total) by mouth 2 (two) times daily for 30 days. 60 capsule 03/13/20 24 025 FARXIGA 10 MG tabletIndications :Stage 3 chronic kidney disease, unspecified whether stage 3a or 3b CKD (CMS/HCC HHS/HCC) Take 1 tablet (10 mg total) by mouth daily for 30 days. 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 30 capsule 04/10/19 25 025 Discontinued Active Problems Problem Noted Date Diagnosed Date Status post placement of ureteral stent 04/10/19 25 Overview (04/10/2024): 04/10/2024: He reports he had ureteral stent placed in right side on 03/30/2024. He reports he goes back 04/18/2024 to have removed. He reports he initially had blood in his urine after procedure which went away and then he started having blood again after he was active at home. Other osteoarthritis of spine, lumbar region Overview (03/13/2024): Patient is reports he takes 1-2 Aleve approximately twice a day. Assessment & Plan (03/13/2024 3:32 PM AIX ADMINISTRATOR): Counseled patient that it would likely be safer if we switch to a selective Galvez inhibitor NSAID such as celecoxib. Instructed to start taking 100 mg twice daily and to discontinue Aleve. Stage 3 chronic kidney disea se, unspecified whether stage 3a or 3b CKD ([facility]) 03/06/2024 Overview (04/10/2024): Patient denies previously known diagnosis of chronic kidney disease. 04/27/2023 Creatinine: 1.43 eGFR: 57 CREATININE S/P/B 0.70 - 1.30 MG/DL 1.69 High GFR ESTIMATE >90 ML/MIN/1.73 M2 43 Low Component Ref Range & Units 03/06/24 0859 MICROALBUMIN (U) <20 MG/L 152.4 High CREATININE RANDOM (U) MG/DL 191.1 ALBUMIN/CREAT RATIO <30 MG/G 79.7 High 04/10/2024: Again, discussed SGLT2 therapy with patient and he is agreeable. Previous insurance did not cover Farxiga or Jardiance. Patient started new insurance plan this March. Assessment & Plan (04/10/2024 8:11 PM AIX ADMINISTRATOR): Sent in Farxiga 10 mg daily however patient reports was expensive and requested new medication be sent in. Jardiance 10 mg daily sent in. I suspect this medication will be just as expensive as Farxiga and patient's insurance may not help cover SGLT2 medications. May need to adjust the focus to stricter blood pressure management. Assessment & Plan (03/13/2024 3:31 PM AIX ADMINISTRATOR): Discussed with patient that his kidney function appears to be around stage III CKD, unknown whether 3A or 3B. Will need to repeat labs in 3 months. Concern regarding moderately increased albumin to creatinine ratio. Need to start SGLT2 inhibitor. Patient question and reports he is circumcised. He is counseled that this medication can increase risk of urinary tract infections and penile infections and is agreeable to proceed with treatment. If Farxiga is not covered by insurance, we will send in Jardiance. Assessment & Plan (03/07/2024 8:09 AM AIX ADMINISTRATOR): Patient does have hypertension and diabetes. Labs ordered to evaluate and assess renal function. Urine microalbumin to creatinine ratio returned elevated at 79.7 Serum creatinine: 1.69 Estimated GFR: 43 Kidney function appears to have progressively worsened since March. Based on these labs, he would be placed in CKD stage III category however I am unsure if this is stable at this new and we will need to repeat in 3 months. Will likely need to start patient on Farxiga/Jardiance. This will be discussed with patient at upcoming appointment in 1 week. Colon cancer screening 03/06/2024 Overview (03/06/2024): Reports was done at [place] within the last few years. Assessment & Plan (03/06/2024 8:50 AM AIX ADMINISTRATOR): Requesting records. Uses marijuana 03/06/2024 Overview (03/06/2024): He reports he vapes occasionally (not on daily basis) for pain. Cigarette nicotine dependence in remission 03/06 Overview (03/06/2024): Reports he smoked approximately 1 pack/day for approximately 30 years and quit around 1999. Assessment & Plan (03/06/2024 2:52 PM AIX ADMINISTRATOR): Intermission. Will likely discuss low-dose CT scan for lung cancer screening at subsequent visit. Chewing tobacco nicotine dependence in remission 03/06/2024 Family history of coronary artery disease in fat her 03/06/2024 Overview (03/06/2024): Father had NV Status post bilateral cataract extraction 2023 Overview (03/06/2024): Patient reports this was done within the last 10 years Type 2 diabetes mellitus ([facility]) 04/27 Overview (03/13/2024): Taking metformin 500 mg once daily Component Ref Range & Units 03/06/24 0859 HGB A1C 4.5 - 6.2 % 5.1 ESTIMATED AVG GLUCOSE 74 - 106 MG/DL 100 GLUCOSE 70 - 99 MG/DL 129 High Assessment & Plan (03/13/2024 3:28 PM AIX ADMINISTRATOR): Discussed with patient that his hemoglobin A1c is very well-controlled and we discussed that metformin can be discontinued at this time. Patient is agreeable to discontinuing metformin. We are also adding SGLT2 inhibitor in the setting of chronic kidney disease. Assessment & Plan (03/07/2024 7:58 AM AIX ADMINISTRATOR): Fasting blood glucose and hemoglobin A1c ordered for today. Fasting blood glucose returned elevated at 129 and hemoglobin A1c returned within normal limits and controlled at 5.1%. Continue metformin 500 mg once daily. History of pulmonary embolism 04/27/2023 Overview (04/10/2024): 03/13/2024: He reports he had a pulmonary embolism approximately 10 or so years ago. Per PDMP, he has previously been on warfarin. He is currently on Eliquis 5 mg twice a day. He reports taking this medication as prescribed. His reports that he was placed on anticoagulation medication after having pulmonary embolism after being in ICU on ventilator laying in bed for 8 to 9 days. He denies previous pulmonary embolism or deep venous thrombosis or blood clot elsewhere in his body. He denies history of atrial fibrillation. Does not follow with cardiology. 04/10/2024: Patient was taken off of Eliquis at last visit. He reports no concerns since discontinuing Eliquis. Assessment & Plan (03/13/2024 3:26 PM AIX ADMINISTRATOR): Discussed with patient and his that patient can likely discontinue anticoagulation medication as he had a provoked PE and was not unprovoked and only had 1 episode so does not warrant at this time any lifelong anticoagulation. They are agreeable to discontinuing medication. History of spinal fusion 04/27/2023 Overview (03/06/2024): Reports he has had multiple spinal fusion surgeries. History of meningitis 04/27/2023 Nephrolithiasis 04/25/2023 Overview (03/06/2024): He reports he had stents placed within the last year. He reports he is following with urologist Dr. Henry at [place]. 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 Reports he has done physical therapy before. He uses a cane to help ambulate. He reports on average, his pain gets worse over the course of the day and worsens with activity such as lawn work. He reports his pain today is similar to his average pain. He is taking gabapentin 100 mg capsule once nightly. Reports no significant improvement in his pain since taking this medication. He is not sure how long he has been taking it. Reports he had intrathecal pump placed around 2009 and spinal cord stimulator implanted in 2018. 03/13/2024: Patient was increased to 300 mg of gabapentin nightly and reports some improvement in pain. He was previously on narcotic medication however reports that it did not seem to help with the pain. 04/10/2024: Patient was increased to gabapentin 300 mg twice daily and reports no significant change from previous. He is not interested in increasing dose today however reports that he may be interested in increasing dose in the summer when he is more active. Assessment & Plan (04/10/2024 8:08 PM AIX ADMINISTRATOR): Plan to continue to monitor pain. Communicated patient that we can increase gabapentin if necessary to help provide better pain management. Assessment & Plan (03/13/2024 3:36 PM AIX ADMINISTRATOR): Would like to increase gabapentin to 300 mg twice daily to hopefully get better pain control. Patient is agreeable to this plan. He is instructed to monitor how medication may affect him as it can cause drowsiness and/or loopiness. Instructed to not drive until he knows how the medication will affect him. Assessment & Plan (03/06/2024 2:45 PM AIX ADMINISTRATOR): Discussed with patient that we can increase gabapentin to 300 mg nightly. We will try this to see if it helps improve pain. He is counseled that this medication can cause some somnolence and imbalance and is recommended to monitor. 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 His brought in arm and wrist cuffs that they have from home. Machine from home read 137/74 in office. 04/10/2024: Taking lisinopril 20 mg daily. Reports his occasionally takes his blood pressure at home. Assessment & Plan (04/10/2024 8:13 PM AIX ADMINISTRATOR): Blood pressure is elevated in office today. Instructed patient to take blood pressure measurements at home and bring in log and machine to next visit. Continue current dose of lisinopril however plan to increase if blood pressure remains elevated in office and at home at next visit. Assessment & Plan (03/13/2024 3:34 PM AIX ADMINISTRATOR): Blood pressure more appropriate in office today. Patient's home blood pressure monitoring cuffs read higher values than in office blood pressure cuff. Recommended to purchase new arm blood pressure monitoring cuff and recommended Omron brand. Continue current lisinopril 20 mg once daily at this time. Assessment & Plan (03/06/2024 2:46 PM AIX ADMINISTRATOR): Blood pressure is elevated in office today. Pain likely is affecting blood pressure. Patient counseled to take blood pressure measurements at home and keep log and bring in machine and log at next visit so we can compare home machine to machine in office. Plan to likely increase RUPESH inhibitor at next visit. Obstructive sleep apnea syndrome 04/13/2014 Overview (03/13/2024): He reports he does not wear CPAP. He reports has not worn it for the past few years as he lost weight and reports sleeping improved. His reports he also has been on Bipap before and never tolerated any of those. His reports that he has slept better since losing weight. His reports he also had his uvula taken out. Assessment & Plan (03/13/2024 3:26 PM AIX ADMINISTRATOR): His 's description of sleep apnea sounds more like central sleep apnea versus obstructive sleep apnea. Requesting records regarding sleep study Hyperlipidemia 04/13/2014 Overview (03/06/2024): Taking rosuvastatin 5 mg daily. Lipid panel 04/26/2023 Total cholesterol: 106 LDL cholesterol: 60 HDL cholesterol: 32 Triglycerides: 68 Assessment & Plan (03/06/2024 10:17 AM AIX ADMINISTRATOR): Continue rosuvastatin 5 mg daily. Per PDMP, refilled for 90 days on 02/28/2024. Seizure ([facility]) 04/13/2014 Lumbago 04/13/2014 Chronic obstructive pulmonary disease ([facility] /[facility]) 04/13/2014 Overview (03/06/2024): Reports he has several inhalers at home however does not use. He denies regular cough and shortness of breath. Bronchial asthma ([facility]) 04/13/2014 Anxiety 04/13/2014 Overview (03/06/2024): He is unsure of medication he takes. Per PDMP, patient takes citalopram 20 mg once daily. Patient reports his manages his medications. He reports he occasionally takes Xanax however not on daily basis. Assessment & Plan (03/06/2024 2:42 PM AIX ADMINISTRATOR): Discussed with him that Xanax is not a great medication for anxiety and I would not like for him to continue using and do not plan to prescribe. 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 04/10/2024 11:51 AM PHQ-9 Score Patient Health Questionnaire-9 Score 5 Assessment & Plan (04/10/2024 8:15 PM AIX ADMINISTRATOR): Discussed with patient that he may benefit more from switching his SSRI citalopram to SNRI duloxetine. He is agreeable to trial. Discontinue citalopram 20 mg daily and start duloxetine 30 mg daily. Patient counseled on common side effects. Chronic pain 02/03/1994 Overview (03/06/2024): Chronic pain due to back injury COPD, Arthritis, kidney stones , neuropathy Resolved Problems Problem Noted Date Diagnosed Date Resolved Date Altered mental status, unspe cified altered mental status type 04/25/2023 03/06/2024 Encounters Date Type Department Care Team Description 04/27/2024 Medication Management [place] [address] [address] [facility] [address] [place] [address] Maude Perdomo DO 04/10/2024 10:40 AM AIX ADMINISTRATOR Office Visit [place] [address] [facility] [address] [place] [address] Maude Perdomo DO Follow Up (4 week follow up on HTN and chronic pain.) 04/10/2024 [facility] [place] [address] [place] [address] [place] [address] Maude Perdomo DO Script change please 04/10/2024 Travel 03/13/2024 1:40 PM AIX ADMINISTRATOR Office Visit [place] [address] [facility] [address] [place] [address] Maude Perdomo DO Follow Up (1 week follow up HTN. ) 03/13/2024 Scan ScaleMP INFO SRVCS Scanned, Doc Med [facility] CT (SCAN); Lab (SCAN) 03/13/2024 [facility] [address] [place] [address] Maude Perdomo, Need script changed 03/13/2024 Travel 03/09/2024 Scan MG HEALTH INFO SRVCS Scanned, [facility] 03/06/2024 7:20 AM AIX ADMINISTRATOR [facility] [place] [address] [place] [address] Maude Perdomo, New Patient 03/06/2024 - 03/06/2024 11:59 PM AIX ADMINISTRATOR [facility] [address] [place] [address] Maude Perdomo, Discharge Disposition: Home or Self Care (Routine Discharge) 03/06/2024 [facility]phone [facility] [place] [address] [place] [address] Maude Perdomo, Record Request 03/06/2024 Travel from Last 3 Months Family History Medical History Relation Comments Prostate Cancer Brother Age 40, in [place] Leukemia Daughter 1 in 1976 at age of 3 No Known Problems Daughter 2 Arthritis Father Heart Disease Father of heart at tack 67 yrs old No Known Problems Maternal Grandfather No Known Problems Maternal Grandmother Cancer Mother Mouth No Known Problems Paternal Grandfather No Known Problems Paternal Grandmother No Known Problems Son Relation Status Comments Brother Alive Daughter 1 Daughter 2 Alive Father Maternal Grandfather Maternal Grandmother Mother Paternal Grandfather Paternal Grandmother Son Alive Social History Tobacco Use Types Packs/Day Years Used Date Smoking Tobacco: Former Cigarettes 1 30 1 970 - 03/1999 Passive Smoke Exposure: Past Smokeless Tobacco: Former Chew, Snuff Quit: 1994 Tobacco Cessation:Counseling Given: Yes Alcohol Use Standard Drinks/Week Comments Not Currently 0 (1 standard drink = 0.6 oz pur e alcohol) Quit 40 years ago PHQ-2 Answer Date Recorded Patient Health Questionnaire-2 Score 1 04/10/2024 Sex and Gender Information Value Date Recorded Sex Assigned at Not on file Legal Sex Male 4:34 PM CDT Gender Identity Not on file Sexual Orientation Not on file Last Filed Vital Signs Vital Sign Reading Time Taken Comments Blood Pressure 151/85 04/10/2024 11:43 AM AIX ADMINISTRATOR Pulse 58 04/10/2024 10:50 AM AIX ADMINISTRATOR Temperature 36.8 C (98.2 F) 04/10/2024 10:50 AM AIX ADMINISTRATOR Respiratory Rate 16 04/10/2024 10:5 0 AM AIX ADMINISTRATOR Oxygen Saturation 96% 04/10/2024 10: 50 AM AIX ADMINISTRATOR Inhaled Oxygen Concentration - - Weight 106.8 kg (235 lb 6.4 oz) 025 10:50 AM AIX ADMINISTRATOR Height 180.3 cm (5' 11 ) 04/10/2024 10: 50 AM AIX ADMINISTRATOR Body Mass Index 32.83 04/10/2024 10:50 AM AIX ADMINISTRATOR Plan of Treatment Upcoming Encounters Date Type Department Care Team (Late st Contact Info) Description 05/08/2024 10:40 AM AIX ADMINISTRATOR Office Visit [facility] [place] [address] [place] [address] Maude Perdomo DO [address] [place] [address] Health Maintenance Due Date Last Done Comments Pneumococcal Vaccine: 65+ Years (1 of 2 - PCV) 1958 Diabetes: Retinopathy Eye Exam 1970 Hepatitis C 1970 DTaP, Tdap and Td Vaccines ( 1 - Tdap) 12/13/1971 Zoster Vaccines (1 of 2) 2002 RSV Immunization or 60+ Years (1 - Risk 60-74 years 1-dose series) 2012 Annual Medicare Wellness Visit 2017 COVID-19 Vaccine (1 - 2023-2 5 season) 2023 Influenza Adult (#1) 2023 Lipid Panel 04/26/2024 04/26/2023 Hemoglobin A1C 09/04/2024 03/06/2024, 04/26/2023, 09/19/2019 Kidney Health Evaluation 03/06/2025 03/06/2024 Colorectal Cancer Screening Colonoscopy (10 Years) 10/21/2032 10/21/2022 AAA SCREENING Completed 04/25/2023, 04/25/2023, 02/22/2014 PHQ-2 (Physician [place]) Completed 04/10/2024 Meningococcal B Vaccine Aged Out No l onger eligible based on patient's age to complete this topic Meningococcal Vaccine Aged Out No yue anu eligible based on patient's age to complete this topic RSV Immunizations Under 20 Months Aged Out No longer eligible b ased on patient's age to complete this topic Procedures Procedure Name Priority Date/Time Associated Diagnosis Comments CT GENERIC 03/13/2024 OUTSIDE LAB (SCAN ORDER) 03/13/2024 URINE BACTERIA CULTURE Routine 03/06/2024 2:52 PM AIX ADMINISTRATOR Microscopic hematuria CBC W/DIFF AUTOMATED Routine 03/06/2024 8:59 AM AIX ADMINISTRATOR Primary hypertension Chronic kidney disease, unspecified CKD stage Type 2 diabetes mellitus with hyperglycemia, without long-term current use of insulin ([facility]) COMPREHENSIVE METABOLIC PANEL Routine 03/06/2024 8:59 AM AIX ADMINISTRATOR Primary hypertension Chronic kidney disease, unspecified CKD stage Type 2 diabetes mellitus with hyperglycemia, without long-term current use of insulin ([facility]) HEMOGLOBIN, GLYCOSYLATED Routine 03/06/2024 8:59 AM AIX ADMINISTRATOR Type 2 diabetes mellitus with hyperglycemia, without long-term current use of insulin ([facility]) URINALYSIS, AUTO, COMPLETE Routine 03/06/2024 8:59 AM AIX ADMINISTRATOR Primary hypertension Chronic kidney disease, unspecified CKD stage ALBUMIN URINE RANDOM W/CREATININE Routine 03/06/2024 8:59 AM AIX ADMINISTRATOR Primary hypertension Chronic kidney disease, unspecified CKD stage COLLECTION VENOUS BLOOD VENIPUNCTURE Routine 03/06/2024 8:54 AM AIX ADMINISTRATOR Primary hypertension COLONOSCOPY GENERIC (SCAN ORDER) 10/21/2022 from Last 3 Months or Most Recently Relevant to Health Maintenance Results * CT GENERIC (03/13/2024) Anatomical Region Laterality Modality Other 03/13/2024 [facility] Scanned SCANNING Final Resu lt * OUTSIDE LAB (SCAN ORDER) (03/13/2024) 03/13/2024 [facility] Scanned SCANNING Final Resu lt * URINE BACTERIA CULTURE (03/06/2024 2:52 PM AIX ADMINISTRATOR) SPEC DESCRIPTION URINE VOIDED 03/06/2024 2:52 PM AIX ADMINISTRATOR [facility] SPECIAL REQUESTS NO SPECIAL REQUEST 03/06/2024 2:52 PM AIX ADMINISTRATOR [facility] CULTURE RESULT NO GROWTH (< OR = 1,000 CFU/ML) 03/08/2024 9:14 AM AIX ADMINISTRATOR [facility] URINE SPECIMEN FROM URETHRA / Unknown 03/06/2024 2:52 PM AIX ADMINISTRATOR 03/06/2024 8:50 PM AIX ADMINISTRATOR Maude Perdomo DO MICROBIOLOGY - GENERAL ORDERA BLES Final Result Performing Organization Address City/[facility]/ZIP Co de Phone Number [facility] [address] [place] [address], [phone] * HEMOGLOBIN, GLYCOSYLATED (03/06/2024 8:59 AM AIX ADMINISTRATOR) HGB A1C 5.1 4.5 - 6.2 % 03/06/2024 4:17 PM AIX ADMINISTRATOR [facility] ESTIMATED AVG GLUCOSE 100 74 - 106 MG/DL 03/06/2024 4:17 PM AIX ADMINISTRATOR [facility] 03/06/2024 8:59 AM AIX ADMINISTRATOR Maude Perdomo DO LABORATORY Final Result [facility] [address] [place] [address], * (ABNORMAL) URINALYSIS (03/06/2024 8:59 AM AIX ADMINISTRATOR) COLOR (U) BROWN 03/06/2024 2:38 PM [facility] Comment: INTERPRET DIPSTICK RESULTS WITH CAUTION. RESULTS MAY BE INACCURATE DUE TO COLOR OF URINE. TRANSPARENCY CLOUDY(A) CLEAR 03/06/2024 2:38 PM [facility] SPECIFIC GRAVITY (U) >1.030 1.003 - 1.040 03/06/2024 2:38 PM [facility] U PH 6.5 5.0 - 9.0 03/06/2024 2:38 PM [facility] PROTEIN RANDOM (U) 1+(A) NEGATIVE 03/06/2024 2:38 PM [facility] Comment: INTERPRET DIPSTICK RESULTS WITH CAUTION. RESULTS MAY BE INACCURATE DUE TO COLOR OF URINE. GLUCOSE (U) NEGATIVE NEGATIVE 03/06/2024 2:38 PM [facility] Comment: INTERPRET DIPSTICK RESULTS WITH CAUTION. RESULTS MAY BE INACCURATE DUE TO COLOR OF URINE. KETONES MG/DL (U) NEGATIVE NEGATIVE 03/06/2024 2:38 PM [facility] Comment: INTERPRET DIPSTICK RESULTS WITH CAUTION. RESULTS MAY BE INACCURATE DUE TO COLOR OF URINE. BILIRUBIN (U) 1+(A) NEGATIVE 03/06/2024 2:38 PM [facility] Comment: INTERPRET DIPSTICK RESULTS WITH CAUTION. RESULTS MAY BE INACCURATE DUE TO COLOR OF URINE. BLOOD (U) 3+(A) NEGATIVE 03/06/2024 2:38 PM [facility] Comment: INTERPRET DIPSTICK RESULTS WITH CAUTION. RESULTS MAY BE INACCURATE DUE TO COLOR OF URINE. UROBILINOGEN 2.0 0.0 - 2.0 EU/DL 03/06/2024 2:38 PM [facility] Comment: INTERPRET DIPSTICK RESULTS WITH CAUTION. RESULTS MAY BE INACCURATE DUE TO COLOR OF URINE. NITRITES NEGATIVE NEGATIVE 03/06/2024 2:38 PM [facility] Comment: INTERPRET DIPSTICK RESULTS WITH CAUTION. RESULTS MAY BE INACCURATE DUE TO COLOR OF URINE. LEUKOCYTES (U) NEGATIVE NEGATIVE 03/06/2024 2:38 PM AIX ADMINISTRATOR [facility] Comment: INTERPRET DIPSTICK RESULTS WITH CAUTION. RESULTS MAY BE INACCURATE DUE TO COLOR OF URINE. RBC/HPF PACKED(A) 0 - 3 /HPF 03/06/2024 2:38 PM AIX ADMINISTRATOR [facility] WBC/HPF 4-9(A) 0 - 3 /HPF 03/06/2024 2:38 PM AIX ADMINISTRATOR [facility] EPI/HPF 0-3 /HPF 03/06/2024 2:38 PM AIX ADMINISTRATOR [facility] BACTERIA (U) 1+(A) NONE SEEN 03/06/2024 2:38 PM AIX ADMINISTRATOR [facility] URINE SPECIMEN FROM URETHRA / Unknown 03/06/2024 8:59 AM AIX ADMINISTRATOR Maude Perdomo DO URINE ORDERABLES Final Result Performing Organization Address [facility] Co de Phone Number [facility] [address] [place] [address], * (ABNORMAL) ALBUMIN URINE RANDOM W/CREATININE (03/06/2024 8:59 AM AIX ADMINISTRATOR) MICROALBUMIN (U) 152.4(H) <20 MG/L 03/06/20 24 4:10 PM AIX ADMINISTRATOR [facility] CREATININE RANDOM (U) 191.1 MG/DL 03/06/2024 4:10 PM AIX ADMINISTRATOR [facility] ALBUMIN/CREAT RATIO 79.7(H) <30 MG/G 03/06/2024 4:10 PM AIX ADMINISTRATOR [facility] URINE SPECIMEN / Unknown 03/06/2024 8:59 AM AIX ADMINISTRATOR Maude Perdomo DO URINE ORDERABLES Final Result Performing Organization Address City/[facility] Co de Phone Number -[facility] ARSH[facility] [address] [place] [address], * (ABNORMAL) COMPREHENSIVE METABOLIC PANEL (03/06/2024 8:59 AM AIX ADMINISTRATOR) [facility] SODIUM S/P/B 140 136 - 145 MMOL/L 03/06/2024 3:53 PM AIX ADMINISTRATOR [facility] POTASSIUM S/P/B 4.5 3.5 - 5.1 MMOL/L 03/06/2024 3:53 PM AIX ADMINISTRATOR [facility] CHLORIDE S/P/B 104 98 - 107 MMOL/L 03/06/2024 3:53 PM AIX ADMINISTRATOR [facility] CO2 29.5 21 - 32 MMOL/L 03/06/2024 3:53 PM AIX ADMINISTRATOR [facility] GLUCOSE 129(H) 70 - 99 MG/DL 03/06/2024 3:53 PM [facility] BUN 12 7 - 18 MG/DL 03/06/2024 3:53 PM AIX ADMINISTRATOR [facility] CREATININE S/P/B 1.69(H) 0.70 - 1.30 MG/DL 03/06/2024 3:53 PM AIX ADMINISTRATOR [facility] CALCIUM S/P/B 9.7 8.4 - 10.5 MG/DL 03/06/2024 3:53 PM AIX ADMINISTRATOR [facility] BILIRUBIN TOTAL S/P/B 1.2(H) 0.2 - 1.0 MG/DL 03/06/2024 3:53 PM AIX ADMINISTRATOR [facility] ALKALINE PHOSPHATASE S/P/B 73 45 - 115 U/L 03/06/2024 3:53 PM AIX ADMINISTRATOR [facility] AST 31 15 - 37 U/L 03/06/2024 3:53 PM AIX ADMINISTRATOR [facility] ALT 29 16 - 63 U/L 03/06/2024 3:53 PM [facility] TOTAL PROTEIN S/P/B 7.8 6.4 - 8.2 G/DL 03/06/2024 3:53 PM AIX ADMINISTRATOR [facility] ALBUMIN S/P/B 4.1 3.4 - 5.0 G/DL 03/06/2024 3:53 PM [facility]IX ADMINISTRATOR [facility] ANION GAP 6.5 5 - 15 MMOL/L 03/06/2024 3:53 PM AIX ADMINISTRATOR [facility] Comment:REFERENCE RANGE NOT ESTABLISHED OSMOLALITY (CALC) 291 MOSM/KG 024 3:53 PM AIX ADMINISTRATOR [facility] Comment:REFERENCE RANGE NOT ESTABLISHED GFR ESTIMATE 43(L) >90 ML/MIN/1. 73 M2 03/06/2024 3:53 PM AIX ADMINISTRATOR [facility] GFR NOTES GFR REFERENCE S: 03/06/2024 3:53 PM AIX ADMINISTRATOR [facility] Comment: THE ESTIMATED GFR IS CALCULATED USING THE 2020 CKD-EPI EQUATION. THE FOLLOWING CATEGORIES FOR GRADING RENAL FUNCTION ARE RECOMMENDED BY THE INTERNATIONAL SOCIETY OF NEPHROLOGY (KDIGO 2012 CLINICAL PRACTICE GUIDELINE). G1,NORMAL OR HIGH: >89 ml/min/1.73 m2 G2,MILDLY DECREASED: 60-89 ml/min/1.73 m2 G3A,MILDLY TO MODERATELY DECREASED: 45-59 ml/min/1.73 m2 G3B,MODERATELY TO SEVERELY DECREASED: 30-44 ml/min/1.73 m2 G4,SEVERELY DECREASED: 15-29 ml/min/1.73 m2 G5,KIDNEY FAILURE: <15 ml/min/1.73 m2 03/06/2024 8:59 AM AIX ADMINISTRATOR us Maude Perdomo DO LABORATORY Final Result [facility] [address] [place] [address], * CBC W/DIFF AUTOMATED (03/06/2024 8:59 AM AIX ADMINISTRATOR) WBC 8.40 4.00 - 10.80 x10'3/uL 03/06/2024 3:39 PM AIX ADMINISTRATOR [facility] RBC 4.65 4.50 - 6.10 x10'6/uL 03/06/2024 3:39 PM [facility] HGB 14.3 13.0 - 18.0 G/DL 03/06/2024 3:39 PM [facility] HCT 43.0 37.0 - 52.0 % 03/06/2024 3:39 PM [facility] MCV 92.5 78.0 - 100.0 FL 03/06/2024 3:39 PM [facility] MCH 30.8 27.0 - 31.0 PG 03/06/2024 3:39 PM [facility] MCHC 33.3 33.0 - 36.0 G/DL 03/06/2024 3:39 PM [facility] RDW 12.7 11.5 - 14.5 % 03/06/2024 3:39 PM [facility] PLT 231 150 - 350 x10'3/uL 03/06/2024 3:39 PM [facility] MPV 9.2 7.4 - 10.4 FL 03/06/2024 3:39 PM [facility] DIFFERENTIAL TYPE AUTOMATED DIFFERENTIAL 03/06/2024 3:39 PM [facility] NEUTROPHILS % 72.4 % 03/06/2024 3:39 PM [facility] LYMPHOCYTES % 17.7 % 03/06/2024 3:39 PM [facility] MONOCYTES % 8.0 % 03/06/2024 3:39 PM [facility] EOSINOPHILS % 1.3 % 03/06/2024 3:39 PM [facility] BASOPHILS % 0.5 % 03/06/2024 3:39 PM [facility] IMMATURE GRANS % 0.1 % 03/06/2024 3:39 PM AIX ADMINISTRATOR [facility] ABS. NEUTROPHILS 6.08 1.60 - 8.30 x10'3/uL 03/06/2024 3:39 PM AIX ADMINISTRATOR [facility] ABS. LYMPHOCYTES 1.49 0.80 - 4.70 x10'3/uL 03/06/2024 3:39 PM AIX ADMINISTRATOR [facility] ABS. MONOCYTES 0.67 0.00 - 1.50 x10'3/uL 03/06/2024 3:39 PM AIX ADMINISTRATOR [facility] ABS. EOSINOPHILS 0.11 0.00 - 0.40 x10'3/uL 03/06/2024 3:39 PM AIX ADMINISTRATOR [facility] ABS. BASOPHILS 0.04 0.00 - 0.20 x10'3/uL 03/06/2024 3:39 PM AIX ADMINISTRATOR [facility] ABS. IMMATURE GRANULOCYTES 0.01 0.00 - 0.03 x10'3/uL 03/06/2024 3:39 PM AIX ADMINISTRATOR [facility] 03/06/2024 8:59 AM AIX ADMINISTRATOR Maude Perdomo DO LABORATORY Final Result Performing Organization Address City/State/[facility] Co de Phone Number [facility] [address] [place] [address], * COLONOSCOPY GENERIC (SCAN ORDER) (10/21/2022) 10/21/2022 [facility] Scanned SCANNING Final Resu lt from Last 3 Months or Most Recently Relevant to Health Maintenance Insurance [facility] Care Teams [employer] Technician Relationship Specialty Start Date End Date Maude Perdomo DO [address] [facility] [address] [place] [address] PCP - General FAMILY PRACTICE 02/29/24
--- OUTSIDE RECORDS SUMMARY | 2024-05-05 10:00 | XMS_ITS | Clinical Summary ---
Author Organization [facility] [employer] Address [address] [facility] [place] [address] Care Team Providers Care Manager Orange Name Role Phone Afshin Kirby Primary Care Provider [phone] Source Comments [facility] [employer],non-owned Affiliates and Associated Physician Practices is amultiple site organization consisting of ambulatory clinics and hospital sitesin [place], [place], [place] and [place]. This disclosure is being madepursuant to the Care Everywhere program and may not contain all information available regarding this patient. Last updated 17.[employer] Medications * Be aware that medications may [...] and heating? Not hard at all 04/28/2023 [facility] [place] of Occupat ional Health - Occupational Stress [...] place to sleep or slept in a snf (including now)? No 04/28/2023 Sex and Gender Information Value Date Recorded Sex Assigned at Not on file Gender Identity Not on file Sexual Orientation Not on file Last Filed Vital Signs Vital Sign Reading Time Taken Comments Blood Pressure 117/62 04/29/2023 11:42 AM FILLING SEPARATOR Pulse 63 04/29/2023 11:42 AM FILLING SEPARATOR Temperature 37 C (98.6 F) 04/29/2023 11:42 AM FILLING SEPARATOR Respiratory Rate 18 04/29/2023 4:49 AM FILLING SEPARATOR Oxygen Saturation 96% 04/29/2023 11:42 AM FILLING SEPARATOR Inhaled Oxygen Concentration - - Weight 99.8 kg (220 lb 0.3 oz) 04/28/2023 1:25 A M FILLING SEPARATOR Height 180.3 cm (5' 11 ) 04/28/2023 1:25 AM FILLING SEPARATOR Body Mass Index 30.69 04/28/2023 1:25 AM FILLING SEPARATOR Plan of Treatment Health Maintenance Due Date Last Done Comments COLOGUARD (AGES 45-75) - COLON CA SCREENING 1952 COLON MONITORING 1952 COLONOSCOPY - COLON CA SCREENING 1952 CT COLONOGRAPHY - COLON CA SCREENING 1952 Colorectal Cancer Screening 1952 FIT - COLON CA SCREENING 1952 FLEX SIG - COLON CA SCREENING 1952 HEPATITIS C SCREENING 12/08/1970 DTAP/TDAP/TD VACCINES (1 - Tdap) 12/13/1971 PNEUMOCOCCAL VACCINE 50+ (1 of 2 - PCV) 12/13/1971 ZOSTER VACCINE (1 of 2) 2002 Respiratory Syncytial Virus (RSV) Vaccine Pt: or over 60 yrs (1 - Risk 60-74 years 1-dose series) 2012 DIABETES RETINOPATHY SCREENING 04/27/2023 DIABETES-FOOT EXAM WITH MONOFILAMENT 04/27/2023 DIABETES-HGB A1C 10/25/2023 04/26/2023 COVID-19 VACCINE ( season) 2023 INFLUENZA VACCINE (#1) 2023 DEPRESSION SCREENING 03/29/2024 DIABETES - URINE PROTEIN SCREENING 03/29/2024 MEDICARE AWV CALENDAR YEAR 2024 DIABETES-SERUM CREATININE 04/28/20242023, 04/27/2023, 04/26/2023, Additional history exists HEPATITIS B VACCINE Aged Out No longe r eligible based on patient's age to complete this topic HIB VACCINE Aged Out No longer eligi ble based on patient's age to complete this topic HPV VACCINE Aged Out No longer eligi ble based on patient's age to complete this topic MENINGOCOCCAL (Group B) VACCINE Aged Out No longer eligible based on patient's age to complete this topic MENINGOCOCCAL VACCINE Aged Out No yue anu eligible based on patient's age to complete this topic Medical Devices Implanted Type Area Funeral Location Manager Device Identifier Shelf Expiration Date Model / Serial / Lot Abandoned Lead Spinal Cord Stimulator Procedures Procedure Name Priority Date/Time Associated Diagnosis Comments RENAL FUNCTION PANEL AM Draw 04/28/2023 5:33 AM FILLING SEPARATOR HEMOGLOBIN A1C NIKKI 04/26/2023 5:56 AM FILLING SEPARATOR from Last 3 Months or Most Recently Relevant to Health Maintenance Results * (ABNORMAL) RENAL FUNCTION PANEL (04/28/2023 5:33 AM FILLING SEPARATOR) BUN 23 7 - 26 mg/dL 04/28/2023 7:34 AM [facility] Creatinine 1.26(H) 0.71 - 1.16 mg/dL 04/28/2023 7:34 AM [facility] Sodium 139 136 - 145 mmol/L 04/28/2023 7:34 AM [facility] Potassium 3.9 3.5 - 4.5 mmol/L 04/28/2023 7:34 AM [facility] Chloride 111(H) 98 - 107 mmol/L 04/28/2023 7:34 AM [facility] CO2 23 22 - 29 mmol/L 04/28/2023 7:34 AM [facility] Glucose 84 70 - 115 mg/dL 04/28/2023 7:34 AM [facility] Albumin 3.0(L) 3.4 - 5.0 g/dL 04/28/2023 7:34 AM [facility] Calcium 9.0 8.4 - 10.2 mg/dL 04/28/2023 7:34 AM [facility] Phosphorus 2.4(L) 2.8 - 5.1 mg/dL 04/28/2023 7:34 AM [facility] Anion Gap 5(L) 6 - 16 04/28/2023 7:34 AM [facility] BUN/Creatinine Ratio 18 7 - 23 04/28/2023 7:34 AM [facility] Osmolality Calculated 291 275 - 295 mOsm/kg 04/28/2023 7:34 AM [facility] eGFR by CKD-EPI 61(L) >=90 mL/min/1.7 3 m2 04/28/2023 7:34 AM [facility] Blood BLOOD SPECIMEN / Unknown Lab Venipuncture / Unknown 04/28/2023 5:33 AM [facility] 04/28/2023 7:07 AM [facility] Mirtha Ontiveros MD LAB - CHEMISTRY ORDE [facility] Organization Address City/State/ZIP Co de Phone Number [facility] [address] [place] [address], [facility] [phone] * HEMOGLOBIN A1C (04/26/2023 5:56 AM [facility]) Hemoglobin A1c 5.6 <=5.6 % 04/26/2023 9:20 AM [facility] Estimated Average Glucose 114 mg/dL 04/26/2023 9:20 AM [facility] Comment: HbA1c Interpretation: Normal : < 5.7% Pre-diabetes: 5.7-6.4% Diabetes: Equal to or greater than 6.5% Test results diagnostic of diabetes should be repeated for confirmation. Treatment target values recommended by ADA and other clinical organizations should be used to evaluate metabolic control in patients. Reference: [place] Diabetes Association, Standards of Care in Diabetes -2020 In patients 70 years and older consider HbA1c target range of 7.0-7.5% (Reference: Lane Hernandez et al. JAMDA. 2012) The Sebia assay for the measurement of HbA1c is a National Glycohemoglobin Standardization Program (NGSP) certified method. Blood BLOOD SPECIMEN / Unknown Venipuncture / Unknown 04/26/2023 5:56 AM FILLING SEPARATOR 04/26/2023 6:07 AM FILLING SEPARATOR Nicola Echevarria MD LAB - CHEMISTRY ORD ERABLES [facility] [address] [place] [address], [facility] [phone] from Last 3 Months or Most Recently Relevant to Health Maintenance Advance Directives * Full Code (Latest Code Status on File) Date Activated Date Inactivated Comments 04/25/2023 8:08 PM 04/29/2023 5:19 PM Care Teams Manager Orange Relationship Specialty Start Date End Date Afshin Kirby DO [address] [facility] [address] [place] [address] [facility] - General 07/25/09
--- OUTSIDE RECORDS SUMMARY | 2024-05-05 10:00 | XMS_ITS | Encounter Summary ---
Author Organization [facility] Address [facility] [place] [address] Care Team Providers Care Research Analyst Name Role Phone Maude Perdomo DO Primary Care Provider [phone] Encounter Details Date Type Department Care Team (Latest Contact Info) Description 03/13/2024 [employer] Message Enc [facility] [address] [facility] [address] [place] [address] Maude Perdomo DO [address] [facility] [address] [place] [address] Need script changed Social History Tobacco Use Types Packs/Day Years Used Date Smoking Tobacco: Former Cigarettes 1 30 1 970 - 03/1999 Passive Smoke Exposure: Past Smokeless Tobacco: Former Chew, Snuff Quit: 1994 Alcohol Use Standard Drinks/Week Comments Not Currently 0 (1 standard drink = 0.6 oz pur e alcohol) Quit 40 years ago Sex and Gender Information Value Date Recorded Sex Assigned at Not on file Legal Sex Male 4:34 PM CDT Gender Identity Not on file Sexual Orientation Not on file documented as of this encounter Plan of Treatment Upcoming Encounters Date Type Department Care Team (Late st Contact Info) Description 05/08/2024 10:40 AM WHITING MACHINE OPERATOR [facility] [place] [id number] [place] [address] Maude Perdomo DO [address] [facility] [address] [place] [address] documented as of this encounter Visit Diagnoses Not on filedocumented in this encounter Care Teams Research Analyst Relationship Specialty Start Date End Date Maude Perdomo DO [address] [facility] [address] [place] [address] PCP - General FAMILY PRACTICE 02/29/24 documented as of this encounter
[2024-05-05 10:51] LABS: Anion Gap 8 mmol/L (4-12); Blood Urea Nitrogen 17 mg/dL (9-20); Calcium 9.1 mg/dL (8.4-10.2); Carbon Dioxide 29 mmol/L (22-30); Chloride 104 mmol/L (98-107); Estimated Glomerular Filt Rate 56; Glucose 104 mg/dL (65-110); Potassium 4.3 mmol/L (3.4-5.0); Sodium 141 mmol/L (137-145)
[2024-05-05 10:59] LABS: INR 1.1; Prothrombin Time 14.3 Seconds (11.1-14.7)
[2024-05-05 11:00] LABS: Partial Thromboplastin Time 26.8 Seconds (22.3-36.8)
== END 2024-05-05 09:26 | disposition home or self-care (01) ==
PROVIDERS: Anesthesiology; Visit Provider Urology
DX: N28.9 Disorder of kidney and ureter, unspecified (principal); I10 Essential (primary) hypertension; E11.9 Type 2 diabetes mellitus without complications; E78.5 Hyperlipidemia, unspecified; Z01.818 Encounter for other preprocedural examination
CPT/HCPCS: 36415; 80048; 85610; 85730; 93005

== ENCOUNTER 2024-05-11 00:10 | Day surgery (SDC) | payer MEDICARE, SELFPAY ==
[2024-05-04 10:30] VITALS: BMI 32.8
--- NOTE | 2024-05-04 10:46 | PC.NURSE ---
Report to the Outpatient Waiting Room, entrance under the green pavilion located off [facility], at time __0630am on date _05/11/24 . Planned Procedure Time: _0830am .? Time changes happen often and if your time is changed the preop area will call you the afternoon before. - You and your visitor will be asked to self-screen and do not enter if you have any COVID symptoms. Please call surgeon if you need to reschedule. - A mask is optional within the hospital at this time. Patients may have clear liquids (water, carbonated beverages, clear teas, apple juice) until 3 hours prior to surgery with a maximum of 20 ounces. - No food from midnight until time of surgery and no smoking, or chewing tobacco (or any form of nicotine). No chewing gum, candy or mints. (0530am) Take only the following medications with a SIP of water on the morning of surgery: ___Duloxetine and Gabapentin DO NOT STOP ANY OF YOUR OTHER PRESCRIPTION MEDICATIONS PRIOR TO SURGERY EXCEPT THE FOLLOWING Hold all vitamins and supplements for 3 days per anesthesiologist. Medications to discontinue per physician Pt to call Dr Dunlap regarding NSAID/Celebrex instructions Date to take last dose_per Dr Dunlap Please no make-up, nail vatican citizen, hairspray, perfume, deodorant, or body powder the day of surgery.? No jewelry (including any body piercings) or valuables the day of surgery, leave them at home.? Please take a shower or bath the night before, or the morning of, surgery with an antibacterial soap.? Wear comfortable, loose fitting clothing.? Children are encouraged to wear pajamas. - Jewelry must be removed prior to entering the operating room.? Rings and piercings that are not removed may be cut off. - The hospital will not accept responsibility for valuables.? - Please leave all valuables, including medications, at home the day of surgery. If you are going home after surgery, a licensed sheet pile driver operator must drive you home.? - NO public transportation without another adult if you receive anesthesia. - We recommend that an adult stay with you for 24 hours following discharge. - We also recommend that you do not drive, make important decision, drink alcoholic beverages, or take any drugs that were not prescribed by your health care provider for at least 24 hours after your discharge time. Follow any additional instructions given to you from your surgeon. Telephone instructions given to __wife Renalda and pt and asked if any additional questions and then verbalized understanding. Patient advised to call surgeon office or pre surgery nurse liaison [phone] if any additional questions.
[2024-05-11] VITALS (8 sets, daily range): BP systolic 113–151; BP diastolic 71–94; PULSE 61–69; RESP 10–16; TEMP 36.3; O2SAT 92–98; BMI 32.3
--- NOTE | ~2024-05-11 | XR_ITS ---
EXAMINATION: XR retrograde pyelogram RT DATE: 05/11/2024 09:16 INDICATION: Right ureteral stent removal TECHNIQUE: 224 fluoroscopic images of the abdomen and pelvis were obtained during procedure performed by Dr. Dunlap. Radiologist was not present for the imaging or procedure. The amount of fluoroscopy t emmanuel used during this procedure was 2.5 minutes. Total DAP was 4.44 mGym^2 COMPARISON: 03/30/2024 FINDINGS: Initial image demonstrates partial withdrawal of the prior anterior wall stent and advancement of a w tyrese into the right renal collecting system. Contrast injection demonstrates mild right hydronephrosis . A new internal ureteral stent subsequently advanced over the wire with loops formed in the right re nal pelvis and in the bladder on the final images. Postoperative changes at the spine along the spina l stimulator. IMPRESSION: 1. Fluoroscopy utilized during right intrarenal stent exchange with stent in expected position on the final images. See procedure note for further detail. Reviewed, dictated and finalized at location A. WORK IMPRESSION: 1. Fluoroscopy utilized during right intrarenal stent exchange with stent in ex pected position on the final images. See procedure note for further detail.
--- OUTSIDE RECORDS SUMMARY | 2024-05-11 00:13 | XMS_ITS | Clinical Summary ---
Author Organization [facility] Address [address] [place] [address] Care Team Providers Care Observer Electrical Prospecting Name Role Phone Afshin Kirby Primary Care Provider Source Comments [facility],non-owned Affiliates and Associated Physician Practices is amultiple site organization consisting of ambulatory clinics and hospital sitesin [place], [place], [place] and [place]. This disclosure is being madepursuant to the Care Everywhere program and may not contain all information available regarding this patient. Last updated 17.[employer] [facility] Medications * Be aware that medications may [...] and heating? Not hard at all 04/28/2023 [facility] [place] of Occupat ional Health - Occupational Stress [...] place to sleep or slept in a senior care (including now)? No 04/28/2023 Sex and Gender Information Value Date Recorded Sex Assigned at Not on file Gender Identity Not on file Sexual Orientation Not on file Last Filed Vital Signs Vital Sign Reading Time Taken Comments Blood Pressure 117/62 04/29/2023 11:42 AM HYDRAULIC BLOCKER Pulse 63 04/29/2023 11:42 AM HYDRAULIC BLOCKER Temperature 37 C (98.6 F) 04/29/2023 11:42 AM HYDRAULIC BLOCKER Respiratory Rate 18 04/29/2023 4:49 AM HYDRAULIC BLOCKER Oxygen Saturation 96% 04/29/2023 11:42 AM HYDRAULIC BLOCKER Inhaled Oxygen Concentration - - Weight 99.8 kg (220 lb 0.3 oz) 04/28/2023 1:25 A M HYDRAULIC BLOCKER Height 180.3 cm (5' 11 ) 04/28/2023 1:25 AM HYDRAULIC BLOCKER Body Mass Index 30.69 04/28/2023 1:25 AM HYDRAULIC BLOCKER Plan of Treatment Health Maintenance Due Date [...] this topic Medical Devices Implanted Type Area Workforce Analyst Device Identifier Shelf Expiration Date Model / Serial / Lot Abandoned Lead Spinal Cord Stimulator Procedures Procedure Name Priority Date/Time Associated Diagnosis Comments RENAL FUNCTION PANEL AM Draw 04/28/2023 5:33 AM HYDRAULIC BLOCKER HEMOGLOBIN A1C NIKKI 04/26/2023 5:56 AM HYDRAULIC BLOCKER from Last 3 Months or Most Recently Relevant to Health Maintenance Results * (ABNORMAL) RENAL FUNCTION PANEL (04/28/2023 5:33 AM HYDRAULIC BLOCKER) BUN 23 7 - 26 mg/dL 04/28/2023 7:34 AM [facility] Creatinine 1.26(H) 0.71 - 1.16 mg/dL 04/28/2023 7:34 AM [facility] Sodium 139 136 - 145 mmol/L 04/28/2023 7:34 AM [facility] Potassium 3.9 3.5 - 4.5 mmol/L 04/28/2023 7:34 AM [facility] Chloride 111(H) 98 - 107 mmol/L 04/28/2023 7:34 AM [facility] CO2 23 22 - 29 mmol/L 04/28/2023 7:34 AM [facility] Glucose 84 70 - 115 mg/dL 04/28/2023 7:34 AM [facility] Albumin 3.0(L) 3.4 - 5.0 g/dL 04/28/2023 7:34 AM [facility] Calcium 9.0 8.4 - 10.2 mg/dL 04/28/2023 7:34 AM [facility] Phosphorus 2.4(L) 2.8 - 5.1 mg/dL 04/28/2023 7:34 AM [facility] Anion Gap 5(L) 6 - 16 04/28/2023 7:34 AM [facility] BUN/Creatinine Ratio 18 7 - 23 04/28/2023 7:34 AM [facility] Osmolality Calculated 291 275 - 295 mOsm/kg 04/28/2023 7:34 AM [facility] eGFR by CKD-EPI 61(L) >=90 mL/min/1.7 3 m2 04/28/2023 7:34 AM [facility] Blood BLOOD SPECIMEN / Unknown Lab Venipuncture / Unknown 04/28/2023 5:33 AM [facility] 04/28/2023 7:07 AM [facility] Mirtha Ontiveros MD LAB - CHEMISTRY ORDE [facility] Organization Address City/State/ZIP Co de Phone Number [facility] [address] [place] [address], [facility] [phone] * HEMOGLOBIN A1C (04/26/2023 5:56 AM [facility]) Hemoglobin A1c 5.6 <=5.6 % 04/26/2023 9:20 AM [facility] Estimated Average Glucose 114 mg/dL 04/26/2023 9:20 AM [facility] Comment: HbA1c Interpretation: Normal : < 5.7% Pre-diabetes: 5.7-6.4% Diabetes: Equal to or greater than 6.5% Test results diagnostic of diabetes should be repeated for confirmation. Treatment target values recommended by ADA and other clinical organizations should be used to evaluate metabolic control in patients. Reference: [place] Diabetes Association, Standards of Care in Diabetes -2020 In patients 70 years and older consider HbA1c target range of 7.0-7.5% (Reference: Lane Hernandez et al. JAMDA. 2012) The Sebia assay for the measurement of HbA1c is a National Glycohemoglobin Standardization Program (NGSP) certified method. Blood BLOOD SPECIMEN / Unknown Venipuncture / Unknown 04/26/2023 5:56 AM HYDRAULIC BLOCKER 04/26/2023 6:07 AM HYDRAULIC BLOCKER Nicola Echevarria MD LAB - CHEMISTRY ORD ERABLES [facility] [address] [place] [address], [facility] [phone] from Last 3 Months or Most Recently Relevant to Health Maintenance Advance Directives * Full Code (Latest Code Status on File) Date Activated Date Inactivated Comments 04/25/2023 8:08 PM 04/29/2023 5:19 PM Care Teams Observer Electrical Prospecting Relationship Specialty Start Date End Date Afshin Kirby DO [address] [facility] [address] [place] [address] [facility] - General 07/25/09
--- OUTSIDE RECORDS SUMMARY | 2024-05-11 00:13 | XMS_ITS | Referral Summary ---
Author Organization [facility] [employer] Address [address] [place] [address] Care Team Providers Care Professor Of Literacy Name Role Phone Afshin Kirby Mk MCNEILL Primary Care Provider Source Comments [facility] [employer],non-owned Affiliates and Associated Physician Practices is amultiple site organization consisting of ambulatory clinics and hospital sitesin [place], [place], [place] and [place]. This disclosure is being madepursuant to the Care Everywhere program and may not contain all information available regarding this patient. Last updated 17.[facility] [employer] Medications * Be aware that medications may [...] and heating? Not hard at all 04/28/2023 [facility] [place] [facility] Occup[facility] - Occupational Stress [...] place to sleep or slept in a assisted (including now)? No 04/28/2023 Sex and Gender Information Value Date Recorded Sex Assigned at Not on file Gender Identity Not on file Sexual Orientation Not on file Last Filed Vital Signs Vital Sign Reading Time Taken Comments Blood Pressure 117/62 04/29/2023 11:42 AM RENTAL CLERK Pulse 63 04/29/2023 11:42 AM RENTAL CLERK Temperature 37 C (98.6 F) 04/29/2023 11:42 AM RENTAL CLERK Respiratory Rate 18 04/29/2023 4:49 AM RENTAL CLERK Oxygen Saturation 96% 04/29/2023 11:42 AM RENTAL CLERK Inhaled Oxygen Concentration - - Weight 99.8 kg (220 lb 0.3 oz) 04/28/2023 1:25 A M RENTAL CLERK Height 180.3 cm (5' 11 ) 04/28/2023 1:25 AM RENTAL CLERK Body Mass Index 30.69 04/28/2023 1:25 AM RENTAL CLERK Functional Status Functional Status Response Date of [...] on file Medical Devices Implanted Type Area Welding Production Supervisor Device Identifier Shelf Expiration Date Model / Serial / Lot Abandoned Lead Spinal Cord Stimulator Procedures Procedure Name Priority Date/Time Associated Diagnosis Comments RENAL FUNCTION PANEL AM Draw 04/28/2023 5:33 AM RENTAL CLERK HEMOGLOBIN A1C NIKKI 04/26/2023 5:56 AM RENTAL CLERK from Last 3 Months or Most Recently Relevant to Health Maintenance Results * (ABNORMAL) RENAL FUNCTION PANEL (04/28/2023 5:[address] [facility]) BUN 23 7 - 26 mg/dL 04/28/2023 7:34 AM [facility] Creatinine 1.26(H) 0.71 - 1.16 mg/dL 04/28/2023 7:34 AM [facility] Sodium 139 136 - 145 mmol/L 04/28/2023 7:34 AM [facility] Potassium 3.9 3.5 - 4.5 mmol/L 04/28/2023 7:34 AM [facility] Chloride 111(H) 98 - 107 mmol/L 04/28/2023 7:34 AM [facility] CO2 23 22 - 29 mmol/L 04/28/2023 7:34 AM [facility] Glucose 84 70 - 115 mg/dL 04/28/2023 7:34 AM [facility] Albumin 3.0(L) 3.4 - 5.0 g/dL 04/28/2023 7:34 AM [facility] Calcium 9.0 8.4 - 10.2 mg/dL 04/28/2023 7:34 AM [facility] Phosphorus 2.4(L) 2.8 - 5.1 mg/dL 04/28/2023 7:34 AM [facility] Anion Gap 5(L) 6 - 16 04/28/2023 7:34 AM [facility] BUN/Creatinine Ratio 18 7 - 23 04/28/2023 7:34 AM [facility] Osmolality Calculated 291 275 - 295 mOsm/kg 04/28/2023 7:34 AM [facility] eGFR by CKD-EPI 61(L) >=90 mL/min/1.7 3 m2 04/28/2023 7:34 AM [facility] Blood BLOOD SPECIMEN / Unknown Lab Venipuncture / Unknown 04/28/2023 5:33 AM RENTAL CLERK 04/28/2023 7:[address] [facility] Mirtha Ontiveros MD LAB - CHEMISTRY ORDE RABLES [facility] [address] [place] [address], [place] [phone] * HEMOGLOBIN A1C (04/26/2023 5:[address] [facility]) Hemoglobin A1c 5.6 <=5.6 % 04/26/2023 9:20 AM [facility] Estimated Average Glucose 114 mg/dL 04/26/2023 9:20 AM [facility] Comment: HbA1c Interpretation: Normal : < 5.7% Pre-diabetes: 5.7-6.4% Diabetes: Equal to or greater than 6.5% Test results diagnostic of diabetes should be repeated for confirmation. Treatment target values recommended by ADA and other clinical organizations should be used to evaluate metabolic control in patients. Reference: [place] [employer], Standards of Care in Diabetes -2020 In patients 70 years and older consider HbA1c target range of 7.0-7.5% (Reference: Lane Hernandez et al. JAMDA. 2012) The Sebia assay for the measurement of HbA1c is a National Glycohemoglobin Standardization Program (NGSP) certified method. Blood BLOOD SPECIMEN / Unknown Venipuncture / Unknown 04/26/2023 5:56 AM RENTAL CLERK 04/26/2023 6:[address] [facility] Nicola Echevarria MD LAB - CHEMISTRY ORD ERABLES [facility] [address] [place] [address], [facility] [phone] from Last 3 Months or Most Recently Relevant to Health Maintenance Advance Directives * Full Code (Latest Code Status on File) Date Activated Date Inactivated Comments 04/25/2023 8:08 PM 04/29/2023 5:19 PM Care Teams Professor Of Literacy Relationship Specialty Start Date End Date Afshin Kirby DO [address] [place] [address] PCP - General 07/25/09
--- OUTSIDE RECORDS SUMMARY | 2024-05-11 00:14 | XMS_ITS | Encounter Summary ---
Author Organization [facility] Address [facility] [place] [address] Care Team Providers Care Churn Drill Operator Name Role Phone Maude Perdomo DO Primary Care Provider [phone] Encounter Details Date Type Department Care Team (Latest Contact Info) Description 03/13/2024 [facility] Message Enc [facility] [place] [id number] [place] [address] Maude Perdomo DO [address] [address] [place] [address] Need script changed Social History Tobacco Use [...] Care Team (Late st Contact Info) Description 05/22/2024 9:20 AM [facility] [place] [address] [place] [address] Maude Perdomo DO [address] [facility] [address] [facility] [address] [place] [address] documented as of this encounter Visit Diagnoses Not on filedocumented in this encounter Care Teams Churn Drill Operator Relationship Specialty Start Date End Date Maude Perdomo DO [address] [facility] [address] [facility] [address] [place] [address] PCP - General FAMILY PRACTICE 02/29/24 documented as of this encounter
--- OUTSIDE RECORDS SUMMARY | 2024-05-11 00:14 | XMS_ITS | Clinical Summary ---
Author Organization [facility] Address [address] [place] [address] Care Team Providers Care Professor Of Sociology Name Role Phone Muade Perdomo DO Primary Care Provider [phone] Allergies Active Allergy Reactions Criticality Noted Date Comments Morphine Hives,Nausea and Vomiting Low 03/06/2024 Tape Contact Dermatitis High 05/23/2019 Medications rosuvastatin (CRESTOR) 5 MG tablet Take 1 tablet (5 mg total) by mouth daily. Active baclofen (LIORESAL) 10 MG tablet Take 1 tablet (10 mg total) by mouth 3 (three) times daily as needed. Active ALPRAZolam (XANAX) 0.5 MG tablet Take 1 tablet (0.5 mg total) by mouth 2 (two) times daily as needed. FOR ANXIETY Active gabapentin (NEURONTIN) 300 MG capsuleIndication s:Spinal stenosis, lumbar region, with neurogenic claudication Take 1 capsule (300 mg total) by mouth 2 (two) times daily for 30 days. 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 30 capsule 05/08/19 25 025 Active celecoxib (CELEBREX) 100 MG capsuleIndication s:Spinal stenosis, lumbar region, with neurogenic claudication,Othe r osteoarthritis of spine, lumbar region Take 1 capsule (100 mg total) by mouth daily. 90 capsule 05/08/19 25 025 Active lisinopril (PRINIVIL) 30 MG tabletIndications :Primary hypertension Take 1 tablet (30 mg total) by mouth daily. 90 tablet 05/18/19 25 025 Active lisinopril (PRINIVIL) 20 MG tablet Take 1 tablet (20 mg total) by mouth daily. 025 Discontinued(Re order) gabapentin (NEURONTIN) 300 MG capsuleIndication s:Spinal stenosis, lumbar region, with neurogenic claudication Take 1 capsule (300 mg total) by mouth 2 (two) times daily for 30 days. 60 capsule 03/13/20 24 025 celecoxib (CELEBREX) 100 MG capsuleIndication s:Other osteoarthritis of spine, lumbar region,Spinal stenosis, lumbar region, with neurogenic claudication TAKE 1 CAPSULE(10 0 MG) BY MOUTH TWICE DAILY 60 capsule 04/10/19 25 025 Discontinued(Re order) DULoxetine (CYMBALTA) 30 MG capsuleIndication s:Spinal stenosis, lumbar region, with neurogenic claudication,Flexographic Press Plate Setter esha pain due to trauma,Anaclitic depression Take 1 capsule (30 mg total) by mouth daily for 30 days. 30 capsule 04/10/19 25 025 Discontinued empagliflozin (JARDIANCE) 10 MG tabletIndications :Stage 3 chronic kidney disease, unspecified whether stage 3a or 3b CKD (CMS/HCC HHS/HCC) Take 1 tablet (10 mg total) by mouth daily. 100 tablet 04/10/19 25 025 Discontinued(Ot her- Please enter comment in Notes field) DULoxetine (CYMBALTA) 30 MG capsuleIndication s:Spinal stenosis, lumbar region, with neurogenic claudication,Flexographic Press Plate Setter esha pain due to trauma,Anaclitic depression TAKE 1 CAPSULE(30 MG) BY MOUTH DAILY 30 capsule 05/05/19 25 025 Discontinued(Re order) Active Problems Problem Noted Date Diagnosed Date Skin lesion of left ear 05/08/2024 Overview (05/08/2024): 05/08/2024: He is complaining of a skin lesion on his left ear. He reports that he has brief pain if he lays down on his left side at nighttime in bed. He denies changing of the lesion. He reports his is concerned that it is a skin cancer. He denies itching, bleeding, change in sensation, or other change in lesion. He is unsure how long he has been present. Assessment & Plan (05/08/2024 1:49 PM CONSTRUCTION JOB TITLES): Discussed with patient that if he would like to have removed, I am happy to refer to dermatology due to location. Otherwise, I do not suspect this is a precancerous or cancerous lesion however is discussed with him that there is no way of knowing entirely unless lesion is removed and sent to pathology. He is not interested in having lesion removed at this time. Status post placement of ureteral stent 04/10/19 Overview (04/10/2024): 04/10/2024: He reports he had [...] day. Assessment & Plan (03/13/2024 3:32 PM CONSTRUCTION JOB TITLES): Counseled patient that it would likely be safer if we switch to a selective Galvez inhibitor NSAID such as celecoxib. Instructed to start taking 100 mg twice daily and to discontinue Aleve. Stage 3 chronic kidney disea se, unspecified whether stage 3a or 3b CKD ([facility]/HCC [facility]) 03/06/2024 Overview (04/10/2024): Patient denies previously known [...] March. Assessment & Plan (04/10/2024 8:11 PM CONSTRUCTION JOB TITLES): Sent in Farxiga 10 mg daily however patient reports was expensive and requested new medication be sent in. Jardiance 10 mg daily sent in. I suspect this medication will be just as expensive as Farxiga and patient's insurance may not help cover SGLT2 medications. May need to adjust the focus to stricter blood pressure management. Assessment & Plan (03/13/2024 3:31 PM CONSTRUCTION JOB TITLES): Discussed with patient that his kidney function [...] Jardiance. Assessment & Plan (03/07/2024 8:09 AM CONSTRUCTION JOB TITLES): Patient does have hypertension and diabetes. Labs [...] 03/06/2024 Overview (03/06/2024): Reports was done at [facility] within the last few years. Assessment & Plan (03/06/2024 8:50 AM CONSTRUCTION JOB TITLES): Requesting records. Uses marijuana 03/06/2024 Overview (03/06/2024): He reports he vapes occasionally (not on daily basis) for pain. Cigarette nicotine dependence in remission 03/06 Overview (03/06/2024): Reports he smoked approximately 1 pack/day for approximately 30 years and quit around 1999. Assessment & Plan (03/06/2024 2:52 PM CONSTRUCTION JOB TITLES): Intermission. Will likely discuss low-dose CT scan for lung cancer screening at subsequent visit. Chewing tobacco nicotine dependence in remission 03/06/2024 Family history of coronary artery disease in fat her 03/06/2024 Overview (03/06/2024): Father had CT Status post bilateral cataract extraction 2023 Overview (03/06/2024): Patient reports this was done within the last 10 years Type 2 diabetes mellitus ([facility]) 04/27 Overview (03/13/2024): Taking metformin 500 mg once daily Component Ref Range & Units 03/06/24 0859 HGB A1C 4.5 - 6.2 % 5.1 ESTIMATED AVG GLUCOSE 74 - 106 MG/DL 100 GLUCOSE 70 - 99 MG/DL 129 High Assessment & Plan (03/13/2024 3:28 PM CONSTRUCTION JOB TITLES): Discussed with patient that his hemoglobin A1c is very well-controlled and we discussed that metformin can be discontinued at this time. Patient is agreeable to discontinuing metformin. We are also adding SGLT2 inhibitor in the setting of chronic kidney disease. Assessment & Plan (03/07/2024 7:58 AM CONSTRUCTION JOB TITLES): Fasting blood glucose and hemoglobin A1c ordered [...] Eliquis. Assessment & Plan (03/13/2024 3:26 PM CONSTRUCTION JOB TITLES): Discussed with patient and his that patient [...] History of meningitis 04/27/2023 Nephrolithiasis 04/25/2023 Overview (05/08/2024): 03/06/2024: He reports he had stents placed within the last year. He reports he is following with urologist Dr. Henry at [facility]. 05/08/2024: He reports he is to have ureteral stent removed by urology on 05/11/2024. Flatback syndrome of lumbar region 01/30/2020 Spinal stenosis, lumbar kenny on, with neurogenic claudication 08/24/2019 Overview (05/08/2024): Initial visit 03/06/2024: Reports he previously worked [...] 2009 and spinal cord stimulator implanted in 2019. 03/13/2024: Patient was increased to 300 mg [...] the summer when he is more active. 05/08/2024: Patient currently taking gabapentin 300 mg twice daily. He is not interested in increasing dose at this time. He was prescribed duloxetine 30 mg once daily. He is unsure if this medication has been effective but is interested in increasing dose of medication. Patient was asked about Celebrex and reports is unsure if this medication has helped him. Assessment & Plan (05/08/2024 1:45 PM CONSTRUCTION JOB TITLES): Continue gabapentin 100 mg twice daily. Increase duloxetine to 60 mg once daily. Discussed that in the setting of his chronic kidney disease, would like to decrease Celebrex 200 mg once daily and see if patient notices change in pain. He is agreeable to this change. Assessment & Plan (04/10/2024 8:08 PM CONSTRUCTION JOB TITLES): Plan to continue to monitor pain. Communicated patient that we can increase gabapentin if necessary to help provide better pain management. Assessment & Plan (03/13/2024 3:36 PM CONSTRUCTION JOB TITLES): Would like to increase gabapentin to 300 mg twice daily to hopefully get better pain control. Patient is agreeable to this plan. He is instructed to monitor how medication may affect him as it can cause drowsiness and/or loopiness. Instructed to not drive until he knows how the medication will affect him. Assessment & Plan (03/06/2024 2:45 PM CONSTRUCTION JOB TITLES): Discussed with patient that we can increase gabapentin to 300 mg nightly. We will try this to see if it helps improve pain. He is counseled that this medication can cause some somnolence and imbalance and is recommended to monitor. 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 His brought in arm and wrist cuffs that they have from home. Machine from home read 137/74 in office. 04/10/2024: Taking lisinopril 20 mg daily. Reports his occasionally takes his blood pressure at home. 05/08/2024: He reports his blood pressure is similar at home to readings here. He is taking lisinopril 20 mg daily. Assessment & Plan (05/08/2024 1:45 PM CONSTRUCTION JOB TITLES): Would like to increase lisinopril to 30 mg daily. Patient is instructed to do so next week after planned procedure to remove ureteral stent. Instructed to return in 2 weeks to follow-up on hypertension. Discussed with patient that he needs to have an annual vision exam. Assessment & Plan (04/10/2024 8:13 PM CONSTRUCTION JOB TITLES): Blood pressure is elevated in office today. Instructed patient to take blood pressure measurements at home and bring in log and machine to next visit. Continue current dose of lisinopril however plan to increase if blood pressure remains elevated in office and at home at next visit. Assessment & Plan (03/13/2024 3:34 PM CONSTRUCTION JOB TITLES): Blood pressure more appropriate in office today. Patient's home blood pressure monitoring cuffs read higher values than in office blood pressure cuff. Recommended to purchase new arm blood pressure monitoring cuff and recommended Omron brand. Continue current lisinopril 20 mg once daily at this time. Assessment & Plan (03/06/2024 2:46 PM CONSTRUCTION JOB TITLES): Blood pressure is elevated in office today. Pain likely is affecting blood pressure. Patient counseled to take blood pressure measurements at home and keep log and bring in machine and log at next visit so we can compare home machine to machine in office. Plan to likely increase RUPESH inhibitor at next visit. Obstructive sleep apnea syndrome 04/13/2014 Overview (05/08/2024): 03/13/2024: He reports he does not wear CPAP. He reports has not worn it for the past few years as he lost weight and reports sleeping improved. His reports he also has been on Bipap before and never tolerated any of those. His reports that he has slept better since losing weight. His reports he also had his uvula taken out. 05/08/2024: He again reports he has slept better since losing weight. Assessment & Plan (05/08/2024 1:35 PM CONSTRUCTION JOB TITLES): Discussed with patient that I would like to repeat his sleep study however he is not interested at this time. Assessment & Plan (03/13/2024 3:26 PM CONSTRUCTION JOB TITLES): His 's description of sleep apnea sounds more like central sleep apnea versus obstructive sleep apnea. Requesting records regarding sleep study Hyperlipidemia 04/13/2014 Overview (03/06/2024): Taking rosuvastatin 5 mg daily. Lipid panel 04/26/2023 Total cholesterol: 106 LDL cholesterol: 60 HDL cholesterol: 32 Triglycerides: 68 Assessment & Plan (03/06/2024 10:17 AM CONSTRUCTION JOB TITLES): Continue rosuvastatin 5 mg daily. Per PDMP, refilled for 90 days on 02/28/2024. Seizure ([facility]) 04/13/2014 Lumbago 04/13/2014 Chronic obstructive pulmonary disease ([facility]) 04/13/2014 Overview (03/06/2024): Reports he has several inhalers at home however does not use. He denies regular cough and shortness of breath. Bronchial asthma ([facility]) 04/13/2014 Anxiety 04/13/2014 Overview (03/06/2024): He is unsure of medication he takes. Per PDMP, patient takes citalopram 20 mg once daily. Patient reports his manages his medications. He reports he occasionally takes Xanax however not on daily basis. Assessment & Plan (03/06/2024 2:42 PM CONSTRUCTION JOB TITLES): Discussed with him that Xanax is not a great medication for anxiety and I would not like for him to continue using and do not plan to prescribe. 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 04/10/2024 11:51 AM PHQ-9 Score Patient Health Questionnaire-9 Score 5 Assessment & Plan (04/10/2024 8:15 PM CONSTRUCTION JOB TITLES): Discussed with patient that he may benefit [...] Encounters Date Type Department Care Team Description 05/08/2024 10:40 AM CONSTRUCTION JOB TITLES Office Visit [place] [address] [facility] [address] [place] [address] Maude Perdomo DO Hypertension; Chronic Kidney Disease 05/08/2024 Travel 04/27/2024 Medication Management [facility] [address] [place] [address] Maude Perdomo DO 04/10/2024 10:40 AM CONSTRUCTION JOB TITLES Office Visit [facility] [address] [facility] [address] [place] [address] Maude Perdomo, Follow Up (4 week follow up on HTN and chronic pain.) 04/10/2024 [facility] [place] [address] [facility] [address] [place] [address] Maude Perdomo, DO Script change please 04/10/2024 Travel 03/13/2024 1:40 PM CONSTRUCTION JOB TITLES [facility] [place] [address] [facility] [address] [place] [address] Maude Perdomo, Follow Up (1 week follow up HTN. ) 03/13/2024 Scan [facility] SRV[facility] Scanned, Doc [facility] CT (SCAN); Lab (SCAN) 03/13/2024 [employer] Message Enc [place] [id number] [facility] [address] [place] [address] Maude Predomo, DO Need script changed 03/13/2024 Travel 03/09/2024 Scan [facility] Scanned, [facility] 03/06/2024 7:20 AM CONSTRUCTION JOB TITLES Office Visit [place] [address] [facility] [address] [place] [address] Maude Perdomo, New Patient 03/06/2024 - 03/06/2024 11:59 PM CONSTRUCTION JOB TITLES Hospital Encounter [facility] [address] [place] [address] Maude Perdomo, DO Discharge Disposition: Home or Self Care (Routine Discharge) 03/06/2024 Telephone [place] [address] [facility] [address] [place] [address] Maude Perdomo, DO Record Request 03/06/2024 Travel from Last 3 [...] Smoking Tobacco: Former Cigarettes 1 30 1 - 03/1999 Passive Smoke Exposure: Past Smokeless Tobacco: Former Chew, Snuff Quit: 1994 Tobacco Cessation:Counseling Given: No Alcohol Use Standard Drinks/Week Comments Not Currently [...] Sign Reading Time Taken Comments Blood Pressure 158/88 05/08/2024 10:56 AM CONSTRUCTION JOB TITLES Pulse 55 05/08/2024 10:56 AM CONSTRUCTION JOB TITLES Temperature 36.6 C (97.9 F) 05/08/2024 10:56 AM CONSTRUCTION JOB TITLES Respiratory Rate 18 05/08/2024 10:5 6 AM CONSTRUCTION JOB TITLES Oxygen Saturation 95% 05/08/2024 10: 56 AM CONSTRUCTION JOB TITLES Inhaled Oxygen Concentration - - Weight 106.7 kg (235 lb 3.2 oz) 025 10:56 AM CONSTRUCTION JOB TITLES Height 180.3 cm (5' 11 ) 05/08/2024 10: 56 AM CONSTRUCTION JOB TITLES Body Mass Index 32.8 05/08/2024 10:56 AM CONSTRUCTION JOB TITLES Plan of Treatment Upcoming Encounters Date Type Department Care Team (Late st Contact Info) Description 05/22/2024 9:20 AM CONSTRUCTION JOB TITLES Office Visit [facility] [place] [address] [place] [address] Maude Perdomo, [address] [place] [address] Health Maintenance Due Date Last Done Comments [...] SCREENING Completed 04/25/2023, 04/25/2023, 02/22/2014 PHQ-2 (Physician [place]) Completed 04/10/2024 Meningococcal B Vaccine Aged Out [...] URINE BACTERIA CULTURE Routine 03/06/2024 2:52 PM CONSTRUCTION JOB TITLES Microscopic hematuria CBC W/DIFF AUTOMATED Routine 03/06/2024 8:59 AM CONSTRUCTION JOB TITLES Primary hypertension Chronic kidney disease, unspecified CKD stage Type 2 diabetes mellitus with hyperglycemia, without long-term current use of insulin ([facility]) COMPREHENSIVE METABOLIC PANEL Routine 03/06/2024 8:59 AM CONSTRUCTION JOB TITLES Primary hypertension Chronic kidney disease, unspecified CKD stage Type 2 diabetes mellitus with hyperglycemia, without long-term current use of insulin ([facility]) HEMOGLOBIN, GLYCOSYLATED Routine 03/06/2024 8:59 AM CONSTRUCTION JOB TITLES Type 2 diabetes mellitus with hyperglycemia, without long-term current use of insulin ([facility]) URINALYSIS, AUTO, COMPLETE Routine 03/06/2024 8:59 AM CONSTRUCTION JOB TITLES Primary hypertension Chronic kidney disease, unspecified CKD stage ALBUMIN URINE RANDOM W/CREATININE Routine 03/06/2024 8:59 AM CONSTRUCTION JOB TITLES Primary hypertension Chronic kidney disease, unspecified CKD stage COLLECTION VENOUS BLOOD VENIPUNCTURE Routine 03/06/2024 8:54 AM CONSTRUCTION JOB TITLES Primary hypertension COLONOSCOPY GENERIC (SCAN ORDER) 10/21/2022 from Last 3 Months or Most Recently Relevant to Health Maintenance Results * CT GENERIC (03/13/2024) Anatomical Region Laterality Modality Other 03/13/2024 [facility] Scanned SCANNING Final Resu lt * OUTSIDE LAB (SCAN ORDER) (03/13/2024) 03/13/2024 Result [employer] [facility] Scanned SCANNING Final Resu lt * URINE BACTERIA CULTURE (03/06/2024 2:52 PM CONSTRUCTION JOB TITLES) SPEC DESCRIPTION URINE VOIDED 03/06/2024 2:52 PM CONSTRUCTION JOB TITLES [facility] SPECIAL REQUESTS NO SPECIAL REQUEST 03/06/2024 2:52 PM CONSTRUCTION JOB TITLES [facility] CULTURE RESULT NO GROWTH (< OR = 1,000 CFU/ML) 03/08/2024 9:14 AM CONSTRUCTION JOB TITLES [facility] URINE SPECIMEN FROM URETHRA / Unknown 03/06/2024 2:52 PM CONSTRUCTION JOB TITLES 03/06/2024 8:50 PM CONSTRUCTION JOB TITLES [employer] Maude Perdomo DO MICROBIOLOGY - GENERAL ORDERA BLES Final Result [facility] [address] [place] [address], [place] [phone] [id number] * HEMOGLOBIN, GLYCOSYLATED (03/06/2024 8:59 AM CONSTRUCTION JOB TITLES) Pathologist [facility] HGB A1C 5.1 4.5 - 6.2 % 03/06/2024 4:17 PM [facility] ESTIMATED AVG GLUCOSE 100 74 - 106 MG/DL 03/06/2024 4:17 PM [facility] 03/06/2024 8:59 AM CONSTRUCTION JOB TITLES Maude Perdomo DO LABORATORY Final Result [facility] [address] [place] [address], [place] [phone] * (ABNORMAL) URINALYSIS (03/06/2024 8:59 AM CONSTRUCTION JOB TITLES) [facility] COLOR (U) BROWN 03/06/2024 2:38 PM CONSTRUCTION JOB TITLES [facility] Comment: INTERPRET DIPSTICK RESULTS WITH CAUTION. RESULTS MAY BE INACCURATE DUE TO COLOR OF URINE. TRANSPARENCY CLOUDY(A) CLEAR 03/06/2024 2:38 PM [facility] SPECIFIC GRAVITY (U) >1.030 1.003 - 1.040 03/06/2024 2:38 PM [facility] U PH 6.5 5.0 - 9.0 03/06/2024 2:38 PM [facility] PROTEIN RANDOM (U) 1+(A) NEGATIVE 03/06/2024 2:38 PM [facility] Comment: INTERPRET DIPSTICK RESULTS WITH CAUTION. RESULTS MAY BE INACCURATE DUE TO COLOR OF URINE. GLUCOSE (U) NEGATIVE NEGATIVE 03/06/2024 2:38 PM [facility] Comment: INTERPRET DIPSTICK RESULTS WITH CAUTION. RESULTS MAY BE INACCURATE DUE TO COLOR OF URINE. KETONES MG/DL (U) NEGATIVE NEGATIVE 03/06/2024 2:38 PM CONSTRUCTION JOB TITLES [facility] Comment: INTERPRET DIPSTICK RESULTS WITH CAUTION. RESULTS MAY BE INACCURATE DUE TO COLOR OF URINE. BILIRUBIN (U) 1+(A) NEGATIVE 03/06/2024 2:38 PM CONSTRUCTION JOB TITLES [facility] Comment: INTERPRET DIPSTICK RESULTS WITH CAUTION. RESULTS MAY BE INACCURATE DUE TO COLOR OF URINE. BLOOD (U) 3+(A) NEGATIVE 03/06/2024 2:38 PM CONSTRUCTION JOB TITLES [facility] Comment: INTERPRET DIPSTICK RESULTS WITH CAUTION. RESULTS MAY BE INACCURATE DUE TO COLOR OF URINE. UROBILINOGEN 2.0 0.0 - 2.0 EU/DL 03/06/2024 2:38 PM CONSTRUCTION JOB TITLES [facility] Comment: INTERPRET DIPSTICK RESULTS WITH CAUTION. RESULTS MAY BE INACCURATE DUE TO COLOR OF URINE. NITRITES NEGATIVE NEGATIVE 03/06/2024 2:38 PM CONSTRUCTION JOB TITLES [facility] Comment: INTERPRET DIPSTICK RESULTS WITH CAUTION. RESULTS MAY BE INACCURATE DUE TO COLOR OF URINE. LEUKOCYTES (U) NEGATIVE NEGATIVE 03/06/2024 2:38 PM CONSTRUCTION JOB TITLES [facility] Comment: INTERPRET DIPSTICK RESULTS WITH CAUTION. RESULTS MAY BE INACCURATE DUE TO COLOR OF URINE. RBC/HPF PACKED(A) 0 - 3 /HPF 03/06/2024 2:38 PM CONSTRUCTION JOB TITLES [facility] WBC/HPF 4-9(A) 0 - 3 /HPF 03/06/2024 2:38 PM CONSTRUCTION JOB TITLES [facility] EPI/HPF 0-3 /HPF 03/06/2024 2:38 PM CONSTRUCTION JOB TITLES [facility] BACTERIA (U) 1+(A) NONE SEEN 03/06/2024 2:38 PM CONSTRUCTION JOB TITLES [facility] URINE SPECIMEN FROM URETHRA / Unknown 03/06/2024 8:59 AM CONSTRUCTION JOB TITLES us Maude Perdomo DO URINE ORDERABLES Final Result [facility] [address] [place] [address], * (ABNORMAL) ALBUMIN URINE RANDOM W/CREATININE (03/06/2024 8:59 AM CONSTRUCTION JOB TITLES) [facility] MICROALBUMIN (U) 152.4(H) <20 MG/L 03/06/20 4:10 PM CONSTRUCTION JOB TITLES [facility] CREATININE RANDOM (U) 191.1 MG/DL 03/06/2024 4:10 PM CONSTRUCTION JOB TITLES [facility] ALBUMIN/CREAT RATIO 79.7(H) <30 MG/G 03/06/2024 4:10 PM CONSTRUCTION JOB TITLES [facility] URINE SPECIMEN / Unknown 03/06/2024 8:59 AM CONSTRUCTION JOB TITLES Maude Perdomo DO URINE ORDERABLES Final Result [place] [id number] [place] [address], * (ABNORMAL) COMPREHENSIVE METABOLIC PANEL (03/06/2024 8:59 AM CONSTRUCTION JOB TITLES) [facility] SODIUM S/P/B 140 136 - 145 MMOL/L 03/06/2024 3:53 PM [facility] POTASSIUM S/P/B 4.5 3.5 - 5.1 MMOL/L 03/06/2024 3:53 PM CONSTRUCTION JOB TITLES [facility] CHLORIDE S/P/B 104 98 - 107 MMOL/L 03/06/2024 3:53 PM CONSTRUCTION JOB TITLES [facility] CO2 29.5 21 - 32 MMOL/L 03/06/2024 3:53 PM [facility] GLUCOSE 129(H) 70 - 99 MG/DL 03/06/2024 3:53 PM CONSTRUCTION JOB TITLES [facility] BUN 12 7 - 18 MG/DL 03/06/2024 3:53 PM [facility] CREATININE S/P/B 1.69(H) 0.70 - 1.30 MG/DL 03/06/2024 3:53 PM [facility] CALCIUM S/P/B 9.7 8.4 - 10.5 MG/DL 03/06/2024 3:53 PM [facility] BILIRUBIN TOTAL S/P/B 1.2(H) 0.2 - 1.0 MG/DL 03/06/2024 3:53 PM [facility] ALKALINE PHOSPHATASE S/P/B 73 45 - 115 U/L 03/06/2024 3:53 PM [facility] AST 31 15 - 37 U/L 03/06/2024 3:53 PM [facility] ALT 29 16 - 63 U/L 03/06/2024 3:53 PM [facility] TOTAL PROTEIN S/P/B 7.8 6.4 - 8.2 G/DL 03/06/2024 3:53 PM [facility] ALBUMIN S/P/B 4.1 3.4 - 5.0 G/DL 03/06/2024 3:53 PM [facility] ANION GAP 6.5 5 - 15 MMOL/L 03/06/2024 3:53 PM [facility] Comment:REFERENCE RANGE NOT ESTABLISHED OSMOLALITY (CALC) 291 MOSM/KG 024 3:53 PM [facility] Comment:REFERENCE RANGE NOT ESTABLISHED GFR ESTIMATE 43(L) >90 ML/MIN/1. 73 M2 03/06/2024 3:53 PM [facility] GFR NOTES GFR REFERENCE S: 03/06/2024 3:53 PM [facility] Comment: THE ESTIMATED GFR IS CALCULATED USING [...] FAILURE: <15 ml/min/1.73 m2 03/06/2024 8:59 AM CONSTRUCTION JOB TITLES Maude Perdomo DO LABORATORY Final Result [facility] [address] [place] [address], * CBC W/DIFF AUTOMATED (03/06/2024 8:59 AM CONSTRUCTION JOB TITLES) WBC 8.40 4.00 - 10.80 x10'3/uL 03/06/2024 3:39 PM CONSTRUCTION JOB TITLES [facility] RBC 4.65 4.50 - 6.10 x10'6/uL 03/06/2024 3:39 PM CONSTRUCTION JOB TITLES [facility] HGB 14.3 13.0 - 18.0 G/DL 03/06/2024 3:39 PM CONSTRUCTION JOB TITLES [facility] HCT 43.0 37.0 - 52.0 % 03/06/2024 3:39 PM CONSTRUCTION JOB TITLES [facility] MCV 92.5 78.0 - 100.0 FL 03/06/2024 3:39 PM CONSTRUCTION JOB TITLES [facility] MCH 30.8 27.0 - 31.0 PG 03/06/2024 3:39 PM CONSTRUCTION JOB TITLES [facility] MCHC 33.3 33.0 - 36.0 G/DL 03/06/2024 3:39 PM CONSTRUCTION JOB TITLES [facility] RDW 12.7 11.5 - 14.5 % 03/06/2024 3:39 PM CONSTRUCTION JOB TITLES [facility] PLT 231 150 - 350 x10'3/uL 03/06/2024 3:39 PM [facility] MPV 9.2 7.4 - 10.4 FL 03/06/2024 3:39 PM [facility] DIFFERENTIAL TYPE AUTOMATED DIFFERENTIAL 03/06/2024 3:39 PM [facility] NEUTROPHILS % 72.4 % 03/06/2024 3:39 PM [facility] LYMPHOCYTES % 17.7 % 03/06/2024 3:39 PM [facility] MONOCYTES % 8.0 % 03/06/2024 3:39 PM [facility] EOSINOPHILS % 1.3 % 03/06/2024 3:39 PM [facility] BASOPHILS % 0.5 % 03/06/2024 3:39 PM [facility] IMMATURE GRANS % 0.1 % 03/06/2024 3:39 PM [facility] ABS. NEUTROPHILS 6.08 1.60 - 8.30 x10'3/uL 03/06/2024 3:39 PM [facility] ABS. LYMPHOCYTES 1.49 0.80 - 4.70 x10'3/uL 03/06/2024 3:39 PM [facility] ABS. MONOCYTES 0.67 0.00 - 1.50 x10'3/uL 03/06/2024 3:39 PM [facility] ABS. EOSINOPHILS 0.11 0.00 - 0.40 x10'3/uL 03/06/2024 3:39 PM [facility] ABS. BASOPHILS 0.04 0.00 - 0.20 x10'3/uL 03/06/2024 3:39 PM [facility] ABS. IMMATURE GRANULOCYTES 0.01 0.00 - 0.03 x10'3/uL 03/06/2024 3:39 PM [facility] 03/06/2024 8:59 AM CONSTRUCTION JOB TITLES us Maude Perdomo DO LABORATORY Final Result [facility] [address] [place] [address], [place] [phone] * COLONOSCOPY GENERIC (SCAN ORDER) (10/21/2022) 10/21/2022 [facility] Scanned SCANNING Final Resu lt from Last 3 Months or Most Recently Relevant to Health Maintenance Insurance [facility] Care Teams Professor Of Sociology Relationship Specialty Start Date End Date Maude Perdomo DO [address] [place] [address] PCP - General FAMILY PRACTICE 02/29/24
--- OUTSIDE RECORDS SUMMARY | 2024-05-11 00:14 | XMS_ITS | Continuity of Care Document ---
Author Organization [facility] Address [address] [facility] [address] [place] [address] Phone Care Team Providers Care Front Clerk Name Role Phone Derrek Fam MD, MD [...] Provider Providers Copied on Encounter [facility], [address], [place], [place], [id number], [place] tel:[phone] [facility] No Information Jeri Anglin. [address], [address], [place], [place], [address] , [place]. [phone] Referring Provider: Derrek Montgomery, [address], [place], [id number]. tel:[phone] [facility], [address] [place] [address], [id number], tel:[phone] [facility] No Information 6 Cristel Anglin. [address], [address], [place], [place], [address] , [place]. tel:[phone] Referring Provider: Derrek Montgomery, [address], [place], [address]. tel:[phone] [facility], [address] [place] [address], [id number], tel:[phone] [facility] No Information 6 Greg Mir. [address], [address], [place], [address] , [place]. tel:[phone] [facility], [address] [place] [address], [id number], tel:[phone] [facility] No Information 6 Cristel Anglin. [address], [address], [place], [address] , [place]. [phone] Referring Provider: Derrek Montgomery, [address], [place], [address]. tel:[phone] Family History Family Member Type Diagnosis Age At Onset No Information Payers Payer name Insurance type Covered constitution party ID Authoriza tizach(s) [employer] [facility] [id number] Social History Type Description Quantity Date Captured [...]
--- OUTSIDE RECORDS SUMMARY | 2024-05-11 00:14 | XMS_ITS | Referral Summary ---
Author Organization [facility] [address] Address [address] [place] [address] Care Team Providers Care Technology Internship Name Role Phone Afshin Kirby MD Primary Care Provider [phone] Allergies Active Allergy Reactions Criticality Noted Date [...] (08/24/2019): Added automatically from request for surgery [id number] Spinal stenosis, lumbar kenny on, with neurogenic claudication 08/24/2019 Overview (08/24/2019): Added automatically from request for surgery [id number] Chronic obstructive pulmonary disease 04/13/2014 Bronchial asthma [...] on file Legal 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 Gender Identity Not on file Sexual Orientation [...] (231 lb 3.2 oz) 020 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 Height 180.3 cm (5' 11 ) 01/30/2020 11: 41 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 Body Mass Index 32.25 01/30/2020 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 Plan of Treatment Not on file Medical Devices Implanted Type Area Rework Operator Device Identifier Shelf Expiration Date Model / Serial / Lot Neurostimulator Neurostimu lator Back Medtronic Neuro [id number] / / Bard Peripheral Vascular [id number] Orquidea Delivery Kit Vena Cava Jugular Filter Embolization Nitinol Latex Free - [id number] Implanted:Qty: 1 on 10/12/2019 at [facility] [employer] Peripheral Vascular 09/25/2022 [id number] / / [id number] Medtronic Sofamor Danek [id number] Infuse 18mm 26mm Absorbable Sponge Sterile Water Syringe Needle - [id number] Implanted:Qty: 1 on 10/13/2019 by Clarke Logan MD at [facility] N/A: Spine Lumbar Medtronic Inc 10/27/2020 [id number] / / [id number] Musculoskeletal Transplant [id number] Allograft; Chips; Frozen; Morselize .1-4 Mm Filler 30 Cc Bone Voi - [id number] - [id number] Implanted:Qty: 1 on 10/13/2019 by Clarke Logan MD at [facility] N/A: Spine Lumbar Musculoskeletal Transplant 08/13/2023 [id number] / [id number] / Allosource [id number] Crushed Chip Frozen Graft 90ml Bone Cancellous - [id number] - [id number] Implanted:Qty: 1 on 10/13/2019 by Clarke Logan MD at [facility] N/A: Spine Lumbar Allosource 07/21/2024 [id number] / [id number] / Allosource [id number] Crushed Chip Frozen Graft 90ml Bone Cancellous - [id number] - [id number] Implanted:Qty: 1 on 10/13/2019 by Clarke Logan MD at [facility] N/A: Spine Lumbar Allosource 07/19/2024 [id number] / [id number] / Depuy Spine [id number] Expedium 6.5mm 50mm Polyaxial Spine Screw Bone Titanium 5.5mm Xu - [id number] Implanted:Qty: 5 on 10/13/2019 by Clarke Logan MD at [facility] N/A: Spine Lumbar Depuy Spine [id number] / / Depuy Spine [id number] Expedium 6.5mm 55mm Polyaxial Spine Screw Bone Titanium 5.5mm Xu - [id number] Implanted:Qty: 3 on 10/13/2019 by Clarke Logan MD at [facility] N/A: Spine Lumbar Depuy Spine [id number] / / Depuy Spine [id number] Expedium 6.5mm 60mm Polyaxial Spine Screw Bone Titanium 5.5mm Xu - [id number] Implanted:Qty: 4 on 10/13/2019 by Clarke Logan MD at [facility] N/A: Spine Lumbar Depuy Spine [id number] / / Depuy Spine [id number] Expedium 7mm 55mm 1 Innie Polyaxial Spine Screw Bone Titanium - [id number] Implanted:Qty: 1 on 10/13/2019 by Clarke Logan MD at [facility] N/A: Spine Lumbar Depuy Spine [id number] / / Depuy Spine [id number] Expedium 7mm 60mm 1 Innie Polyaxial Spine Screw Bone Titanium - [id number] Implanted:Qty: 1 on 10/13/2019 by Clarke Logan MD at [facility] N/A: Spine Lumbar Depuy Spine [id number] / / Depuy Spine [id number] Expedium 7.5mm 50mm 1 Innie Polyaxial Spine Screw Bone Titanium - [id number] Implanted:Qty: 1 on 10/13/2019 by Clarke Logan MD at [facility] N/A: Spine Lumbar Depuy Spine [id number] / / Depuy Spine [id number] Expedium 7.5mm 55mm 1 Innie Polyaxial Spine Screw Bone Titanium - [id number] Implanted:Qty: 1 on 10/13/2019 by Clarke Logan MD at [facility] N/A: Spine Lumbar Depuy Spine [id number] / / Depuy Spine [id number] Expedium Viper 8mm 100mm Polyaxial Spine Sacral Alar Iliac Screw - [id number] Implanted:Qty: 2 on 10/13/2019 by Clarke Logan MD at [facility] N/A: Spine Lumbar Depuy Spine [id number] / / Depuy Spine [id number] Expedium 5.5mm 65mm Line Prebent Xu Spinal Titanium Nonsterile - [id number] Implanted:Qty: 1 on 10/13/2019 by Clarke Logan MD at [facility] N/A: Spine Lumbar Depuy Spine [id number] / / Depuy Spine [id number] Expedium 5.5mm 55mm Line Prebent Xu Spinal Titanium Nonsterile - [id number] Implanted:Qty: 1 on 10/13/2019 by Clarke Logan MD at [facility] N/A: Spine Lumbar Depuy Spine [id number] / / Depuy Spine [id number] Expedium 1 Inner Monoaxial Spine Screw Set Titanium - [id number] Implanted:Qty: 18 on 10/13/2019 by Clarke Logan MD at [facility] N/A: Spine Lumbar Depuy Spine [id number] / / Depuy Spine [id number] Viper 2 600mm Straight Ux Spinal Cocr - [id number] Implanted:Qty: 1 on 10/13/2019 by Clarke Logan MD at [facility] N/A: Spine Lumbar Depuy Spine [id number] / / Integra Lifesciences Navarro [id number] Duragen Plus 2x2in Patch Resorbable Suturable Cranial Dura Graft - [id number] Implanted:Qty: 1 on 10/13/2019 by Clarke Logan MD at [facility] N/A: Spine Lumbar Integra Lifesciences Navarro [id number] / / Medtronic Sofamor Danek [id number] Infuse 18mm 26mm Absorbable Sponge Sterile Water Syringe Needle - [id number] Implanted:Qty: 1 on 10/13/2019 by Clarke Logan MD at [facility] N/A: Spine Lumbar Medtronic Inc 10/27/2020 [id number] / / [id number] Explanted Type Area Rework Operator Device Identifier Shelf Expiration Date Model / Serial / Lot Screws Explanted:Qty: 8 on 10/13/2019 by Clarke Logan MD at [facility] N/A: Spine Lumbar Depuy Synthes Spine Rods Explanted:Qty: 2 on 10/13/2019 at [facility] N/A: Spine Lumbar Depuy Synthes Spine Crosslink Explanted:Qty: 1 on 10/13/2019 at [facility] N/A: Spine Lumbar Depuy Synthes Spine Connectors Explanted:Qty: 8 on 10/13/2019 at [facility] N/A: Spine Lumbar Depuy Synthes Spine Nuts Explanted:Qty: 8 on 10/13/2019 at [facility] N/A: Spine Lumbar Depuy Synthes Spine Insurance [facility]CR HMO REF [facility] ADVANTAGE CON [facility] MDCR HMO REF [facility] HEALTH[facility]ARE [facility] Advance Directives For more information, please contact: [phone] * Full Code (Latest Code Status on File) Date Activated Date Inactivated Comments 10/13/2019 9:43 PM 10/21/2019 6:52 PM * Full Code Date Activated Date Inactivated Comments 10/12/2019 10:19 AM 10/12/2019 4:09 PM Care Teams Technology Internship Relationship Specialty Start Date End Date Afshin Kirby MD [address] [place] [id number] PCP - General Internal Medicine 09/16/16
--- OUTSIDE RECORDS SUMMARY | 2024-05-11 00:14 | XMS_ITS | Encounter Summary ---
Author Organization [facility] Address [address] [place] [address] Care Team Providers Care Metal Finish Inspector Name Role Phone Afshin Kirby DO Primary Care Provider [phone] Encounter Details Date Type Department Care Team (Late st Contact Info) Description 11/23/2022 Lab Requisition [facility] - DermPath Lab [address] [facility] [place] [id number] Samuel Snyder MD [facility] [address] [place] [address] Basal cell carcinoma of skin of [...] AM CDT) Case Report Dermatopathology Report Case: [id number] Authorizing Provider: Samuel Snyder MD Collected: 11/23/2022 12:00 AM Ordering Location: [facility] DermPath Lab Received: 11/24/2022 11:58 AM [...] of a non-oriented ellipse of skin measuring 32l40e03 mm. The margin is inked green. The [...] characteristic determined by the Dermatopathology Laboratory at [facility], directed by Dr. Yamilet Smith. These tests need not be, and therefore are not, approved by the [place] Food and Drug Administration. The tests are used for clinical purposes. Billing Codes Specimen Charges Stain Charges 50534 1 2:35 PM CDT DERMATOPATHOLOGY LABORATORY Embedded Images 2:35 PM CDT DERMATOPATHOLOGY LABORATORY Pathology/Cytolog y TISSUE SPECIMEN FROM SKIN / Unknown 11/23/2022 11/24/2022 11:58 AM CDT Samuel Snyder MD LAB - PATHOLOGY/CYTO LOGY ORDERABLES DERMATOPATHOLOGY LABORATORY [facility] Department of Dermatology [address] [phone] documented in this encounter Visit Diagnoses Diagnosis Basal cell carcinoma of skin of right upper limb, including shoulder Basal cell carcinoma of skin of upper limb, including shoulder documented in this encounter Care Teams Metal Finish Inspector Relationship Specialty Start Date End Date Afshin Kirby DO [address] [facility] [address] [place] [address] PCP - General 07/25/09 documented as of this encounter
--- OUTSIDE RECORDS SUMMARY | 2024-05-11 00:14 | XMS_ITS | Patient Health Summary ---
Author Organization [facility] [place] Address [address] [place] [address] Care Team Providers Care Edge Runner Name Role Phone Afshin Kirby Mk MCNEILL Primary Care Provider Note from [facility],non-owned Affiliates and Associated Physician Practices is amultiple site organization consisting of ambulatory clinics and hospital sitesin [place], [place], [place] and [place]. This disclosure is being madepursuant to the Care Everywhere program and may not contain all information available regarding this patient. Last updated 17.[facility] Medications * Be aware that medications may [...] and heating? Not hard at all 04/28/2023 [facility] Clear of Occupat ional Health - Occupational Stress [...] Comments Blood Pressure 117/62 04/29/2023 11:42 AM MANAGER HEMATOLOGY Pulse 63 04/29/2023 11:42 AM MANAGER HEMATOLOGY Temperature 37 C (98.6 F) 04/29/2023 11:42 AM MANAGER HEMATOLOGY Respiratory Rate 18 04/29/2023 4:49 AM MANAGER HEMATOLOGY Oxygen Saturation 96% 04/29/2023 11:42 AM MANAGER HEMATOLOGY Inhaled Oxygen Concentration - - Weight 99.8 kg (220 lb 0.3 oz) 04/28/2023 1:25 A M MANAGER HEMATOLOGY Height 180.3 cm (5' 11 ) 04/28/2023 1:25 AM MANAGER HEMATOLOGY Body Mass Index 30.69 04/28/2023 1:25 AM MANAGER HEMATOLOGY Medical Devices Implanted Type Area Refrigerator Cabinetmaker Device Identifier Shelf Expiration Date Model / [...] * CARDIAC EKG ORDER (04/29/2023 5:10 PM MANAGER HEMATOLOGY) Narrative 04/29/2023 5:10 PM MANAGER HEMATOLOGY Ordered by an unspecified provider. Scanned Document CARDIAC SERVICES ORD ERABLES * (ABNORMAL) GLUCOSE - POINT OF CARE (04/29/2023 10:25 AM MANAGER HEMATOLOGY) Only the most recent of9 resultswithin the time period is included. Pathologist [facility] Glucose WB/POC 169(H) 70 - 115 mg/dL 04/29/2023 10:26 AM [facility] Specimen Type Arterial 04/29/2023 10:26 AM [facility] Blood BLOOD SPECIMEN / Unknown 04/29/2023 10:25 AM MANAGER HEMATOLOGY 04/29/2023 10:26 AM MANAGER HEMATOLOGY Cameron Rachel MD LAB - POINT OF CARE ORDERABLES [facility] [address] [place] [address], [facility] [phone] * MAGNESIUM BLOOD (04/29/2023 7:20 AM MANAGER HEMATOLOGY) Only the most recent of4 resultswithin the time period is included. Pathologist [facility] Magnesium 2.0 1.6 - 2.6 mg/dL 04/29/2023 7:55 AM [facility] Blood BLOOD SPECIMEN / Unknown Lab Venipuncture / Unknown 04/29/2023 7:20 AM MANAGER HEMATOLOGY 04/29/2023 7:30 AM MANAGER HEMATOLOGY Nicola Echevarria MD LAB - CHEMISTRY ORD ERABLES Performing Organization Address City/[facility]/ZIP Co de Phone Number [facility] [address] [place] [address], [facility] [phone] * (ABNORMAL) CBC W/O DIFFERENTIAL (04/28/2023 5:33 AM MANAGER HEMATOLOGY) Only the most recent of2 resultswithin the time period is included. Pathologist [facility] WBC 7.0 4.0 - 10.7 x10E9/L 04/28/2023 7:18 AM [facility] RBC Count 4.11(L) 4.30 - 5.80 x10E12/L 04/28/2023 7:18 AM [facility] Hemoglobin 12.8(L) 13.3 - 17.5 g/dL 04/28/2023 7:18 AM [facility] Hematocrit 37.5(L) 38.7 - 51.1 % 04/28/2023 7:18 AM [facility] MCV 91.2 80.0 - 98.0 fL 04/28/2023 7:18 AM [facility] MCH 31.1 26.7 - 33.6 pg 04/28/2023 7:18 AM [facility] MCHC 34.1 31.7 - 36.3 g/dL 04/28/2023 7:18 AM [facility] RDW-CV 12.2 11.3 - 14.8 % 04/28/2023 7:18 AM [facility] Platelet Count 217 150 - 420 x10E9/L 04/28/2023 7:18 AM [facility] MPV 9.1 7.8 - 11.4 fL 04/28/2023 7:18 AM [facility] Blood BLOOD SPECIMEN / Unknown Lab Venipuncture / Unknown 04/28/2023 5:33 AM MANAGER HEMATOLOGY 04/28/2023 7:07 AM MANAGER HEMATOLOGY Mirtha Ontiveros MD LAB - HEMATOLOGY ORD ERABLES [facility] [address] [place] [address], [facility] [phone] * (ABNORMAL) RENAL FUNCTION PANEL (04/28/2023 5:33 AM MANAGER HEMATOLOGY) Only the most recent of2 resultswithin the time period is included. BUN 23 7 - 26 mg/dL 04/28/2023 7:34 AM [facility] Creatinine 1.26(H) 0.71 - 1.16 mg/dL 04/28/2023 7:34 AM [facility] Sodium 139 136 - 145 mmol/L 04/28/2023 7:34 AM [facility] Potassium 3.9 3.5 - 4.5 mmol/L 04/28/2023 7:34 AM [facility] Chloride 111(H) 98 - 107 mmol/L 04/28/2023 7:34 AM [facility] CO2 23 22 - 29 mmol/L 04/28/2023 7:34 AM [facility] Glucose 84 70 - 115 mg/dL 04/28/2023 7:34 AM [facility] Albumin 3.0(L) 3.4 - 5.0 g/dL 04/28/2023 7:34 AM [facility] Calcium 9.0 8.4 - 10.2 mg/dL 04/28/2023 7:34 AM [facility] Phosphorus 2.4(L) 2.8 - 5.1 mg/dL 04/28/2023 7:34 AM [facility] Anion Gap 5(L) 6 - 16 04/28/2023 7:34 AM [facility] BUN/Creatinine Ratio 18 7 - 23 04/28/2023 7:34 AM [facility] Osmolality Calculated 291 275 - 295 mOsm/kg 04/28/2023 7:34 AM [facility] eGFR by CKD-EPI 61(L) >=90 mL/min/1.7 3 m2 04/28/2023 7:34 AM [facility] Blood BLOOD SPECIMEN / Unknown Lab Venipuncture / Unknown 04/28/2023 5:33 AM MANAGER HEMATOLOGY 04/28/2023 7:07 AM [facility] Mirtha Ontiveros MD LAB - CHEMISTRY ORDE [facility] Organization Address City/State/ZIP Co de Phone Number [facility] [address] [place] [address], [facility] [phone] * (ABNORMAL) PT-INR [facility] (04/27/2023 2:09 PM MANAGER HEMATOLOGY) Only the most recent of4 resultswithin the time period is included. PT 21.2(H) 12.1 - 14.8 Seconds 04/27/2023 2:38 PM [facility] INR 1.9 See Comment 04/27/2023 2:38 PM [facility] Comment:The suggested therap eutic range for standard coumadin (warfarin) therapy is an INR of 2.0-3.0. For high-risk patients (Mechanical Mitral Valve Prosthesis, etc.), the suggested prophylactic therapeutic range is an INR of 2.5-3.5. Blood BLOOD SPECIMEN / Unknown Venipuncture / Unknown 04/27/2023 2:09 PM MANAGER HEMATOLOGY 04/27/2023 2:13 PM MANAGER HEMATOLOGY Mirtha Ontiveros MD LAB - COAGULATION OR DERABLES [address] [address], [place] [phone] * SYPHILIS ANTIBODY CASCADING REFLEX (04/27/2023 9:30 AM MANAGER HEMATOLOGY) Only the most recent of2 resultswithin the time period is included. Treponema pallidum Antibody Non-react bonilla Non-react bonilla 04/27/2023 10:56 AM MANAGER HEMATOLOGY [facility] Comment: No Laboratory evidence of syphilis infection. Note: Circulating antibodies may be low or undetectable in early infection. If recent exposure is suspected, re-draw sample in 2-4 weeks and repeat testing. Blood BLOOD SPECIMEN / Unknown Venipuncture / Unknown 04/27/2023 9:30 AM MANAGER HEMATOLOGY 04/27/2023 9:45 AM MANAGER HEMATOLOGY Mirtha Ontiveros MD LAB - SEROLOGY ORDER KAIN Performing Organization Address [facility] Co de Phone Number [address] [address], [place] [phone] * HIV-1 HIV-2 ANTIBODY + HIV P24 AG PANEL (04/27/2023 9:30 AM MANAGER HEMATOLOGY) HIV Antigen/Antibod y 1 & 2 Non-reacti ve Non-react bonilla 04/27/2023 10:56 AM MANAGER HEMATOLOGY [facility] Comment:No Laboratory eviden ce of HIV infection. Blood BLOOD SPECIMEN / Unknown Venipuncture / Unknown 04/27/2023 9:30 AM MANAGER HEMATOLOGY 04/27/2023 9:45 AM MANAGER HEMATOLOGY Mirtha Ontiveros MD LAB - CHEMISTRY ORDE RABJOHN Performing Organization Address City/[facility]/ZIP Co de Phone Number [address] [address], [place] [phone] * METHYLMALONIC ACID BLOOD (04/27/2023 9:30 AM MANAGER HEMATOLOGY) Pathologist [facility] Methylmalonic Acid 0.12 0.00 - 0.40 umol/L 04/30/2023 12:40 AM MANAGER HEMATOLOGY [facility] [employer] ([facility]) Comment: INTERPRETIVE INFORMATION: MMA Serum/Plasma, Vitamin B12 Status This test was developed and its performance characteristics determined by [employer] [facility] It has not been cleared or approved by the [place] Food and Drug Administration. This test was performed in a CLIA certified laboratory and is intended for clinical purposes. Performed By: [facility] [address] [place] [address] Cleaning Crew Member: Bryan Garcia MD, PhD CLIA Number: [id number] Blood BLOOD SPECIMEN / Unknown Venipuncture / Unknown 04/27/2023 9:30 AM MANAGER HEMATOLOGY 04/27/2023 9:45 AM MANAGER HEMATOLOGY Mirtha Ontiveros MD LAB - CHEMISTRY CHELSIE ANDINO [facility] Organization Address City/State/ZIP Co de Phone Number [facility] [employer] [facility]) [address] * HERPES SIMPLEX 1+2 ANTIBODY IGG/IGM PANEL (04/27/2023 9:30 AM MANAGER HEMATOLOGY) [facility] Herpes Simplex Virus 1/2 Antibody IgG 0.49 IV 04/29/2023 12:53 PM MANAGER HEMATOLOGY [facility] ([facility]) Comment: INTERPRETIVE INFORMATION: HSV 1/2 COMBINED Ab [...] IgM 0.35 <=0.89 IV 04/29/2023 12:53 PM MANAGER HEMATOLOGY [facility] ([facility]) Comment: INTERPRETIVE INFORMATION: Herpes Simplex Virus Type [...] more than 12 months post-infection. Performed By: [place] [address] Cleaning Crew Member: Bryan Garcia MD, PhD CLIA Number: [id number] Blood BLOOD SPECIMEN / Unknown Venipuncture / Unknown 04/27/2023 9:30 AM MANAGER HEMATOLOGY 04/27/2023 9:45 AM [facility] Mirtha Ontiveros MD LAB - [facility]MISTRY ORDE [facility] ([facility]) [address] [place] [address], [facility] * (ABNORMAL) URINE DRUG SCREEN IMMUNOASSAY (04/27/2023 9:30 AM [facility]) Only the most recent of2 resultswithin the time period is included. [facility] Amphetamines Screen Urine Negative Negative : < 1000 ng/mL 04/27/2023 10:08 AM [facility] Barbiturates Screen Urine Negative Negative : < 200 ng/mL 04/27/2023 10:08 AM [facility] Benzodiazepine Screen Urine Positive(A) Negative : < 200 ng/mL 04/27/2023 10:08 AM [facility] Comment: Positive urine benzodiazepine screening results should be confirmed by another generally accepted non-immunological method such as gas chromatography or mass spectrometry. Opiates Urine Negative Negative : < 300 ng/mL 04/27/2023 10:08 AM [facility] Cocaine Metabolites Urine Negative Negative : < 300 ng/mL 04/27/2023 10:08 AM [facility] Phencyclidine Screen Urine Negative Negative : < 25 ng/ml 04/27/2023 10:08 AM [facility] Cannabinoids Screen Urine Positive(A) Negative : <50 ng/mL 04/27/2023 10:08 AM [facility] Comment:Positive urine canna binoids (THC) screening results should be confirmed by another generally accepted non-immunological method such as gas chromatography or mass spectrometry. Methadone Screen Urine Negative Negative : < 300 ng/mL 04/27/2023 10:08 AM [facility] Fentanyl Screen Urine Negative Negative : <1.5 ng/mL 04/27/2023 10:08 AM [facility] Urine URINE / Unknown Collection / Unknown 04/27/2023 9:30 AM MANAGER HEMATOLOGY 04/27/2023 9:47 AM MANAGER HEMATOLOGY Narrative [facility] - 04/27/2023 10:08 AM [facility] The Urine Toxicology Screening Panel does not screen for Propoxyphene, Meprobamate, Carisoprodol, Trazodone, gdmm-tsp-ivfygal medications and/or volatiles (Acetone, Isopropanol, Methanol or Ethylene Glycol). Ethanol, Salicylate, Acetaminophen, Tricyclic Antidepressants and several therapeutic drugs may be individually assayed in serum or plasma specimen. Toxicology testing by the [facility] is an aid to medical diagnosis and treatment of patients. No documented chain of custody was maintained. Results are intended to be used for clinical purposes only. Mirtha Ontiveros MD LAB - URINE CHEMISTR Y ORDERABLES [address] [address], [facility] [phone] * FOLATE (04/27/2023 9:30 AM [facility]) Folate 10.3 7.0 - 31.4 ng/mL 04/27/2023 11:00 AM [facility] Blood BLOOD SPECIMEN / Unknown Venipuncture / Unknown 04/27/2023 9:30 AM MANAGER HEMATOLOGY 04/27/2023 9:51 AM MANAGER HEMATOLOGY Mirtha Ontiveros MD LAB - CHEMISTRY ORDE RABJOHN [address] [address], [place] [phone] * (ABNORMAL) VITAMIN B12 (04/27/2023 9:30 AM MANAGER HEMATOLOGY) Only the most recent of2 resultswithin the time period is included. Vitamin B12 1,375(H) 213 - 816 pg/mL 04/27/2023 11:00 AM [facility] Blood BLOOD SPECIMEN / Unknown Venipuncture / Unknown 04/27/2023 9:30 AM MANAGER HEMATOLOGY 04/27/2023 9:51 AM MANAGER HEMATOLOGY Mirtha Ontiveros MD LAB - CHEMISTRY CHELSIE ANDINO [address] [address], [facility] [phone] * AMMONIA (04/27/2023 9:30 AM MANAGER HEMATOLOGY) Ammonia 32 <=72 umol/L 04/27/2023 10:19 AM [facility] Blood BLOOD SPECIMEN / Unknown Venipuncture / Unknown 04/27/2023 9:30 AM MANAGER HEMATOLOGY 04/27/2023 9:50 AM MANAGER HEMATOLOGY Mirtha Ontiveros MD LAB - CHEMISTRY CHELSIE ANDINO Performing Organization Address City/[facility]/ZIP Co de Phone Number [address] [address], [facility] [phone] * (ABNORMAL) URINE MICROSCOPIC ONLY REFLEX TO CULTURE (04/26/2023 8:44 AM MANAGER HEMATOLOGY) Reflex Status Culture to follow 04/26/2023 9:29 AM [facility] RBC UA >100(A) None Seen, 0-2, 3-5 /HPF 04/26/2023 9:29 AM [facility] WBC UA 11-20(A) None Seen, 0-5 /HPF 04/26/2023 9:29 AM [facility] Squamous Epithelial Cells UA None Seen None Seen, 0-2, 3-5 /HPF 04/26/2023 9:29 AM [facility] Mucus UA 1+ /LPF 04/26/2023 9:29 AM [facility] Urine URINE SPECIMEN OBTAINED BY CLEAN CATCH PROCEDURE / Unknown Collection / Unknown 04/26/2023 8:44 AM MANAGER HEMATOLOGY 04/26/2023 9:03 AM [facility] - 04/26/2023 9:29 AM MANAGER HEMATOLOGY Nicola Echevarria MD LAB - URINALYSIS OR DERABLES Performing Organization Address [facility]/ZIP Co de Phone Number [address] [phone] [phone] * (ABNORMAL) URINALYSIS REFLEX MICROSCOPIC REFLEX CULTURE (04/26/2023 8:44 AM MANAGER HEMATOLOGY) Color UA Yellow Straw, Yellow 04/26/2023 9:24 AM [facility] Clarity UA Slt Cloudy(A) Clear 04/26/2023 9:24 AM [facility] Specific [place] UA 1.030 1.005 - 1.030 04/26/2023 9:24 AM [facility] pH UA 5.0 5.0 - 8.0 pH 04/26/2023 9:24 AM [facility] Protein UA 2+(A) Negative 04/26/2023 9:24 AM [facility] Glucose UA Negative Negative 04/26/2023 9:24 AM [facility] Ketone UA 1+(A) Negative 04/26/2023 9:24 AM [facility] Bilirubin UA Negative Negative 04/26/2023 9:24 AM [facility] Blood UA 3+(A) Negative 04/26/2023 9:24 AM [facility] Nitrite UA Negative Negative 04/26/2023 9:24 AM [facility] Leukocyte Esterase Negative Negative 04/26/2023 9:24 AM [facility] Urobilinogen UA 2.0(A) Negative mg/dL 04/26/2023 9:24 AM [facility] Urine URINE SPECIMEN OBTAINED BY CLEAN CATCH PROCEDURE / Unknown Collection / Unknown 04/26/2023 8:44 AM MANAGER HEMATOLOGY 04/26/2023 9:03 AM [facility] - 04/26/2023 9:24 AM MANAGER HEMATOLOGY Nicola Echevarria MD LAB - URINALYSIS OR DERABLES Performing Organization Address [facility]/ZIP Co de Phone Number [facility] [address] [place] [address], [facility] [phone] * CULTURE URINE (04/26/2023 8:44 AM MANAGER HEMATOLOGY) Only the most recent of2 resultswithin the time period is included. Culture Urine 50,000-100,000 CFU/mL urogenital ca 04/28/2023 1:18 AM MANAGER HEMATOLOGY [facility] Urine URINE SPECIMEN OBTAINED BY CLEAN CATCH PROCEDURE / Unknown Collection / Unknown 04/26/2023 8:44 AM MANAGER HEMATOLOGY 04/26/2023 9:29 AM MANAGER HEMATOLOGY Nicola Echevarria MD LAB - MICROBIOLOGY ORDERABLES Performing Organization Address [facility] Co de Phone Number [facility] [address] [place] [address], [facility] [phone] * (ABNORMAL) TSH REFLEX FREE T4 (04/26/2023 5:56 AM MANAGER HEMATOLOGY) TSH 0.258(L) 0.350 - 4.940 uIU/mL 04/26/2023 6:52 AM MANAGER HEMATOLOGY [facility] Blood BLOOD SPECIMEN / Unknown Venipuncture / Unknown 04/26/2023 5:56 AM MANAGER HEMATOLOGY 04/26/2023 6:07 AM MANAGER HEMATOLOGY Nicola Echevarria MD LAB - CHEMISTRY ORD ERABLES Performing Organization Address City/[facility]/ZIP Co de Phone Number [facility] [address] [place] [address], [place] [phone] * HEMOGLOBIN A1C (04/26/2023 5:56 AM MANAGER HEMATOLOGY) Hemoglobin A1c 5.6 <=5.6 % 04/26/2023 9:20 AM MANAGER HEMATOLOGY [facility] Estimated Average Glucose 114 mg/dL 04/26/2023 9:20 AM [facility] Comment: HbA1c Interpretation: Normal : < [...] Unknown Venipuncture / Unknown 04/26/2023 5:56 AM MANAGER HEMATOLOGY 04/26/2023 6:07 AM MANAGER HEMATOLOGY Nicola Echevarria MD LAB - CHEMISTRY ORD ERABLES [facility] [address] [place] [address], [facility] [phone] * (ABNORMAL) CBC W AUTO DIFFERENTIAL (04/26/2023 5:56 AM MANAGER HEMATOLOGY) Only the most recent of2 resultswithin the time period is included. WBC 8.4 4.0 - 10.7 x10E9/L 04/26/2023 6:12 AM [facility] RBC Count 4.15(L) 4.30 - 5.80 x10E12/L 04/26/2023 6:12 AM [facility] Hemoglobin 13.2(L) 13.3 - 17.5 g/dL 04/26/2023 6:12 AM [facility] Hematocrit 37.7(L) 38.7 - 51.1 % 04/26/2023 6:12 AM [facility] MCV 90.8 80.0 - 98.0 fL 04/26/2023 6:12 AM [facility] MCH 31.8 26.7 - 33.6 pg 04/26/2023 6:12 AM [facility] MCHC 35.0 31.7 - 36.3 g/dL 04/26/2023 6:12 AM [facility] RDW-CV 12.2 11.3 - 14.8 % 04/26/2023 6:12 AM [facility] Platelet Count 203 150 - 420 x10E9/L 04/26/2023 6:12 AM [facility] MPV 8.9 7.8 - 11.4 fL 04/26/2023 6:12 AM [facility] Neutrophil % 76.9(H) 41.0 - 74.0 % 04/26/2023 6:12 AM [facility] Lymphocyte % 14.0(L) 17.0 - 47.0 % 04/26/2023 6:12 AM [facility] Monocyte % 8.5 3.0 - 11.0 % 04/26/2023 6:12 AM [facility] Eosinophil % 0.0 0.0 - 7.0 % 04/26/2023 6:12 AM [facility] Basophil % 0.2 0.0 - 1.6 % 04/26/2023 6:12 AM [facility] Immature Granulocytes % 0.4 0.0 - 1.0 % 04/26/2023 6:12 AM [facility] Neutrophil Absolute 6.43 1.60 - 7.50 x10E9/L 04/26/2023 6:12 AM [facility] Lymphocyte Absolute 1.17 1.00 - 4.40 x10E9/L 04/26/2023 6:12 AM [facility] Monocyte Absolute 0.71 0.15 - 1.00 x10E9/L 04/26/2023 6:12 AM [facility] Eosinophil Absolute 0.00 0.00 - 0.60 x10E9/L 04/26/2023 6:12 AM [facility] Basophil Absolute 0.02 0.00 - 0.13 x10E9/L 04/26/2023 6:12 AM [facility] Blood BLOOD SPECIMEN / Unknown Venipuncture / Unknown 04/26/2023 5:56 AM MANAGER HEMATOLOGY 04/26/2023 6:07 AM [facility] Nicola Echevarria MD LAB - HEMATOLOGY OR DERABLES Performing Organization Address City/State/[facility] Co de Phone Number [facility] [address] [place] [phone] [phone] * (ABNORMAL) COMPREHENSIVE METABOLIC PANEL (04/26/2023 5:56 AM [facility]) Only the most recent of2 resultswithin the time period is included. BUN 20 7 - 26 mg/dL 04/26/2023 6:34 AM [facility] Creatinine 1.49(H) 0.71 - 1.16 mg/dL 04/26/2023 6:34 AM [facility] Sodium 140 136 - 145 mmol/L 04/26/2023 6:34 AM [facility] Potassium 4.3 3.5 - 4.5 mmol/L 04/26/2023 6:34 AM [facility] Chloride 110(H) 98 - 107 mmol/L 04/26/2023 6:34 AM [facility] CO2 23 22 - 29 mmol/L 04/26/2023 6:34 AM [facility] Glucose 115 70 - 115 mg/dL 04/26/2023 6:34 AM [facility] Calcium 9.0 8.4 - 10.2 mg/dL 04/26/2023 6:34 AM [facility] Protein Total 7.1 6.0 - 8.3 g/dL 04/26/2023 6:34 AM [facility] Albumin 3.2(L) 3.4 - 5.0 g/dL 04/26/2023 6:34 AM [facility] Bilirubin Total 0.9 0.2 - 1.2 mg/dL 04/26/2023 6:34 AM [facility] Alkaline Phosphatase 48 40 - 150 U/L 04/26/2023 6:34 AM [facility] ALT 24 5 - 55 U/L 04/26/2023 6:34 AM [facility] AST 25 5 - 34 U/L 04/26/2023 6:34 AM [facility] Anion Gap 7 6 - 16 04/26/2023 6:34 AM [facility] BUN/Creatinine Ratio 13 7 - 23 04/26/2023 6:34 AM [facility] Osmolality Calculated 294 275 - 295 mOsm/kg 04/26/2023 6:34 AM [facility] Albumin/Globulin Ratio 0.8(L) 1.1 - 2.3 04/26/2023 6:34 AM [facility] eGFR by CKD-EPI 50(L) >=90 mL/min/1.7 3 m2 04/26/2023 6:34 AM [facility] Blood BLOOD SPECIMEN / Unknown Venipuncture / Unknown 04/26/2023 5:56 AM MANAGER HEMATOLOGY 04/26/2023 6:07 AM MANAGER HEMATOLOGY Nicola Echevarria MD LAB - CHEMISTRY ORD ERABLES [facility] [address] [place] [address], [facility] [phone] * PHOSPHORUS BLOOD (04/26/2023 5:56 AM MANAGER HEMATOLOGY) Phosphorus 3.2 2.8 - 5.1 mg/dL 04/26/2023 6:34 AM [facility] Blood BLOOD SPECIMEN / Unknown Venipuncture / Unknown 04/26/2023 5:56 AM MANAGER HEMATOLOGY 04/26/2023 6:07 AM MANAGER HEMATOLOGY Nicola Echevarria MD LAB - CHEMISTRY ORD ERABLES [facility] [address] [place] [address], [facility] [phone] * ALCOHOL ETHYL BLOOD (04/26/2023 5:56 AM MANAGER HEMATOLOGY) Ethanol (mg/dL) <10 <10 mg/dL 6:34 AM [facility] Ethanol Calculated (g/dL) <0.010 <=0.010 g/dL 04/26/2023 6:34 AM [facility] Blood BLOOD SPECIMEN / Unknown Venipuncture / Unknown 04/26/2023 5:56 AM MANAGER HEMATOLOGY 04/26/2023 6:07 AM MANAGER HEMATOLOGY Narrative [facility] - 04/26/2023 6:34 AM MANAGER HEMATOLOGY Ethanol Interp <10: None Detected. Depression of MACHINE HEEL SEAT LASTER: >100 mg/dl Potentially Critical: >250 mg/dl Potentially [...] - CHEMISTRY ORD ERABLES Performing Organization Address City/[facility] Co de Phone Number [address] [address], [facility] [phone] * T4 FREE (04/26/2023 5:56 AM MANAGER HEMATOLOGY) T4 Free 1.0 0.7 - 1.5 ng/dL 04/26/2023 7:24 AM MANAGER HEMATOLOGY [facility] Blood BLOOD SPECIMEN / Unknown Venipuncture / Unknown 04/26/2023 5:56 AM MANAGER HEMATOLOGY 04/26/2023 6:07 AM MANAGER HEMATOLOGY Nicola Echevarria MD LAB - CHEMISTRY ORD ERABLES Performing Organization Address [facility] Co de Phone Number [address] [phone], [facility] [phone] * CORTISOL BLOOD AM (04/26/2023 5:56 AM MANAGER HEMATOLOGY) Cortisol AM 17.3 3.7 - 19.4 ug/dL 04/26/2023 6:50 AM MANAGER HEMATOLOGY [facility] Blood BLOOD SPECIMEN / Unknown Venipuncture / Unknown 04/26/2023 5:56 AM MANAGER HEMATOLOGY 04/26/2023 6:06 AM MANAGER HEMATOLOGY Narrative [facility] - 04/26/2023 6:50 AM MANAGER HEMATOLOGY Normal cortisol levels are generally highest in the morning hours and lowest from late evening through the barrel burner hours (8 PM to 4 AM). The PM measurements of cortisol run approximately one-half to one-third of the AM values. Nicola Echevarria MD LAB - CHEMISTRY ORD ERABLES Performing Organization Address City/[facility] Co de Phone Number [address] [phone], [facility] [phone] * (ABNORMAL) LIPID PROFILE (04/26/2023 5:56 AM MANAGER HEMATOLOGY) Cholesterol Total 106 <200 mg/dL 04/26/2023 6:34 AM [facility] HDL 32(L) >40 mg/dL 04/26/2023 6:34 AM [facility] Comment: ATP III Classification of HDL Cholesterol: <40 mg/dL: Considered a major risk factor. >60 mg/dL: Considered a negative risk factor. LDL Calculated 60 <100 mg/dL 04/26/2023 6:34 AM [facility] [facility] Comment: ATP III Classification of LDL Cholesterol: <100 mg/dL: Optimal 100 - 129 mg/dL: Near Optimal/Above Optimal 130 - 159 mg/dL: Borderline High 160 - 189 mg/dL: High >190 mg/dL: Very High Triglycerides 68 <150 mg/dL 04/26/2023 6:34 AM [facility] Comment: ATP III Classification of Triglycerides: <150 mg/dL: Normal 150 - 199 mg/dL: Borderline High 200 - 400 mg/dL: High >500 mg/dL: Very High Blood BLOOD SPECIMEN / Unknown Venipuncture / Unknown 04/26/2023 5:56 AM MANAGER HEMATOLOGY 04/26/2023 6:07 AM MANAGER HEMATOLOGY Nicola Echevarria MD LAB - CHEMISTRY ORD ERABLES [address] [address], [facility] [phone] * BLOOD TYPE VERIFICATION (04/25/2023 7:50 PM MANAGER HEMATOLOGY) ABO Rh A POS 04/25/2023 8:3 3 PM [facility] BLOOD BANK LAB Blood Bank BLOOD SPECIMEN / Unknown Venipuncture / Unknown 04/25/2023 7:50 PM MANAGER HEMATOLOGY 04/25/2023 8:01 PM MANAGER HEMATOLOGY Nilesh Lopes MD LAB - BLOOD BANK ORD ERABLES [facility] BLOOD BANK LAB [address] [facility] [place] [address], [facility] [phone] * CULTURE BLOOD (04/25/2023 6:54 PM MANAGER HEMATOLOGY) Only the most recent of5 resultswithin the time period is included. Culture No growth day 5 JOSE ALEJANDRO 04/30/2023 10:31 PM MANAGER HEMATOLOGY [facility] MICRO[facility] Blood PERIPHERAL BLOOD / Unknown Venipuncture / Unknown 04/25/2023 6:54 PM MANAGER HEMATOLOGY 04/25/2023 7:07 PM MANAGER HEMATOLOGY Frankie Esposito MD LAB - MICROBIOLOGY O RDERABLES [facility] [address] [place] [address], [facility] [phone] * CT HEAD WO CONTRAST (04/25/2023 5:56 PM MANAGER HEMATOLOGY) Anatomical Region Laterality Modality Head Computed Tomogra phy 04/25/2023 6:08 PM MANAGER HEMATOLOGY Impressions 04/25/2023 7:40 PM MANAGER HEMATOLOGY IMPRESSION: 1.No acute intracranial hemorrhage. Report dictated by Kyle Cantu MD, PhD (sales and marketing vice president). IJulisa MD have personally reviewed and interpreted this examination/study. > Interpreting Provider: Julisa Wilhelm MD on 04/25/2023 7:40 PM Narrative 04/25/2023 7:40 PM MANAGER HEMATOLOGY PROCEDURE: CT HEAD WO CONTRAST, DATE/TIME OF EXAM: 04/25/2023 5:58 PM, LOCATION [facility] INDICATION: R41.82: Altered mental status, unspecified [...] DATE/TIME OF EXAM: 04/25/2023 5:58 PM, LOCATION [facility] INDICATION: R41.82: Altered mental status, unspecified [...] Report dictated by Kyle Cantu MD, PhD (sales and marketing vice president). Julisa Zepeda MD have personally reviewed and interpretedthis examination/study. > Interpreting Provider: Julisa Wilhelm MD on 04/25/2023 7:40 PM Frankie Esposito MD CT ORDERABLES * CT ABDOMEN PELVIS WO CONTRAST (04/25/2023 5:56 PM MANAGER HEMATOLOGY) Anatomical Region Laterality Modality Abdomen, Pelvis Computed Tomogra phy 04/25/2023 6:18 PM MANAGER HEMATOLOGY Impressions 04/25/2023 11:16 PM MANAGER HEMATOLOGY Impression: 1.Mild right-sided pelviectasis with an extrarenal pelvis. No left-sided hydronephrosis. Renal calculi cannot be completely excluded due to contrast in the collecting systems however no obstructing ureteric calculi are visualized. > Dictated by Jacob Allen MD (sales and marketing vice president). Sonia Zepeda MD have personally reviewed and interpreted this examination/study. > Interpreting Provider: Sonia Mcgovern MD on 04/25/2023 11:16 PM Narrative 04/25/2023 11:16 PM MANAGER HEMATOLOGY PROCEDURE: CT ABDOMEN PELVIS WO CONTRAST, DATE/TIME OF EXAM: 04/25/2023 5:58 PM, LOCATION [facility] INDICATION: R41.82: Altered mental status, unspecified [...] DATE/TIME OF EXAM: 04/25/2023 5:58 PM, LOCATION [facility] INDICATION: R41.82: Altered mental status, unspecified [...] visualized. > Dictated by Jacob Allen MD (sales and marketing vice president). ISonia MD have personally reviewed and interpreted this examination/study. > Interpreting Provider: Sonia Mcgovern MD on 04/25/2023 11:16 PM [address]ie Espsoito MD CT ORDERABLES * TROPONIN-I HIGH SENSITIVE (04/25/2023 1:00 PM MANAGER HEMATOLOGY) Pathologist [facility] Troponin I High Sensitive 4 <=35 ng/L 04/25/2023 1:47 PM MANAGER HEMATOLOGY [facility] Blood BLOOD SPECIMEN / Unknown Venipuncture / Unknown 04/25/2023 1:00 PM MANAGER HEMATOLOGY 04/25/2023 1:11 PM MANAGER HEMATOLOGY Frankie Esposito MD LAB - CHEMISTRY CHELSIE ANDINO [facility] Organization Address City/State/ZIP Co de Phone Number [facility] [address] [place] [address], [facility] [phone] * B-TYPE NATRIURETIC PEPTIDE (04/25/2023 1:00 PM MANAGER HEMATOLOGY) BNP <10 <100 pg/mL 04/25/2023 1:47 PM MANAGER HEMATOLOGY [facility] Comment: A decision threshold of 100 pg/mL [...] Unknown Venipuncture / Unknown 04/25/2023 1:00 PM MANAGER HEMATOLOGY 04/25/2023 1:11 PM MANAGER HEMATOLOGY Frankie Esposito MD LAB - CHEMISTRY CHELSIE ANDINO Performing Organization Address City/[facility]/ZIP Co de Phone Number [address] [address], [facility] [phone] * CK BLOOD (04/25/2023 1:00 PM MANAGER HEMATOLOGY) CK Total 95 30 - 200 U/L 04/25/2023 1:43 PM MANAGER HEMATOLOGY [facility] Blood BLOOD SPECIMEN / Unknown Venipuncture / Unknown 04/25/2023 1:00 PM MANAGER HEMATOLOGY 04/25/2023 1:11 PM MANAGER HEMATOLOGY Frankie Esposito MD LAB - CHEMISTRY CHELSIE ANDINO Performing Organization Address City/[facility]/ZIP Co de Phone Number [address] [address], [facility] [phone] * CT ANGIO BRAIN NECK STROKE (04/25/2023 12:20 PM MANAGER HEMATOLOGY) Anatomical Region Laterality Modality Head Computed Tomogra phy 04/25/2023 12:3 5 PM MANAGER HEMATOLOGY Impressions 04/25/2023 12:48 PM MANAGER HEMATOLOGY IMPRESSION: 1. Small focal calcific focus in the right M1 segment with associated focal severe stenosis and patent distal branches. Otherwise no large arterial occlusions or significant stenosis in the head 2. No large arterial occlusions or significant stenoses identified in the neck. > Interpreting Provider: Danielle Chery MD on 04/25/2023 12:48 PM Narrative 04/25/2023 12:48 PM MANAGER HEMATOLOGY PROCEDURE: CT ANGIO BRAIN NECK STROKE DATE/TIME [...] TYPE + SCREEN PANEL (04/25/2023 12:16 PM MANAGER HEMATOLOGY) Antibody Screen NEG 1:00 PM [facility] BLOOD BANK LAB ABO Rh A POS 04/25/2023 1:00 PM MANAGER HEMATOLOGY [facility] BLOOD BANK LAB Blood Bank BLOOD SPECIMEN / Unknown Venipuncture / Unknown 04/25/2023 12:16 PM MANAGER HEMATOLOGY 04/25/2023 12:24 PM MANAGER HEMATOLOGY Nilesh Lopes MD LAB - BLOOD BANK ORD ERABLES Performing Organization Address City/[facility]/ZIP Co de Phone Number [facility] BLOOD BANK LAB [address] [place] [address], [facility] [phone] * (ABNORMAL) INR WHOLE BLOOD - POINT OF CARE (IP) STROKE (04/25/2023 12:10 PM MANAGER HEMATOLOGY) INR 1.6(H) 0.9 - 1.2 04/25/2023 12:12 PM [facility] Device [id number] 04/25/2023 12:12 PM [facility] LABORATORY [facility] Product Examiner ID [id number] 04/25/2023 12:12 PM [facility] Blood BLOOD SPECIMEN / Unknown 04/25/2023 12:10 PM MANAGER HEMATOLOGY 04/25/2023 12:12 PM MANAGER HEMATOLOGY Provider Unknown LAB - POINT OF CARE ORDERABLES Performing Organization Address City/[facility]/ZIP Co de Phone Number [facility] LABORATORY [facility] [address] [place] [address], [facility] [phone] * (ABNORMAL) CREATININE - POCT INTERFACED (04/25/2023 12:10 PM MANAGER HEMATOLOGY) Creatinine POCT 1.15 0.30 - 1.30 mg/dL 04/25/2023 12:12 PM [facility] LABORATORY [facility] eGFR 68(L) >90 mL/min/1.7 3 m2 04/25/2023 12:12 PM [facility] Blood BLOOD SPECIMEN / Unknown 04/25/2023 12:10 PM MANAGER HEMATOLOGY 04/25/2023 12:12 PM MANAGER HEMATOLOGY Provider Unknown LAB - POINT OF CARE ORDERABLES [facility] [address] [place] [address], [facility] [phone] * CT BRAIN - Stroke (04/25/2023 12:08 PM MANAGER HEMATOLOGY) Anatomical Region Laterality Modality Head Computed Tomogra phy 04/25/2023 12:1 1 PM MANAGER HEMATOLOGY Impressions 04/25/2023 12:22 PM MANAGER HEMATOLOGY IMPRESSION: 1.No acute intracranial process. No CT evidence of large vascular infarct. Specifically, no acute intracranial hemorrhage as clinically queried. These findings were discussed in detail with the patient's care provider, Dr. Jessi Cano by Dr. Kyle Cantu (verified by Danielle CARRILLO) via telephone at 1213 hrs on 04/25/2023 with readback comprehension and verification. Report dictated by Kyle Cantu MD, PhD (sales and marketing vice president). I, Danielle Chery MD have personally reviewed and interpreted this examination/study. > Interpreting Provider: Danielle Chery MD on 04/25/2023 12:22 PM Narrative 04/25/2023 12:22 PM MANAGER HEMATOLOGY PROCEDURE: CT BRAIN STROKE, DATE/TIME OF EXAM: 04/25/2023 12:11 PM, LOCATION [facility] INDICATION: Code Stroke ADDITIONAL CLINICAL INFORMATION: [...] DATE/TIME OF EXAM: 04/25/2023 12:11 PM, LOCATION [facility] INDICATION: Code Stroke ADDITIONAL CLINICAL INFORMATION: [...] Report dictated by Kyle Cantu MD, PhD (sales and marketing vice president). I, Danielle Chery MD have personally reviewed and interpreted this examination/study. > Interpreting Provider: Danielle Chery MD on 04/25/2023 12:22 PM [address]h Lopes MD CT ORDERABLES * DERMATOPATHOLOGY (11/23/2022 12:00 AM CDT) Case Report Dermatopathology Report Case: [id number] Authorizing Provider: Samuel Snyder MD Collected: 11/23/2022 12:00 AM Ordering Location: [facility] DermPath Lab Received: 11/24/2022 11:58 AM Pathologist: [...] of a non-oriented ellipse of skin measuring [id number] mm. The margin is inked green. The [...] characteristic determined by the Dermatopathology Laboratory at [facility], directed by Dr. Yamilet Smith. These tests need not be, and therefore are not, approved by the [place] Food and Drug Administration. The tests are used for clinical purposes. Billing Codes Specimen Charges Stain Charges 02669 1 3 2:35 PM CDT DERMATOPATHOLOGY LABORATORY Embedded Images 2:35 PM CDT DERMATOPATHOLOGY LABORATORY Pathology/Cytolog y TISSUE SPECIMEN FROM SKIN / Unknown 11/23/2022 11/24/2022 11:58 AM CDT Samuel Snyder MD LAB - PATHOLOGY/CYTO LOGY ORDERABLES DERMATOPATHOLOGY LABORATORY [facility] - Department of Dermatology [address], [address] [phone] * CULTURE SPUTUM+GRAM STAIN (02/17/2014 5:24 PM MANAGER HEMATOLOGY) Culture Sputum No Growth at 48 hours [facility] Gram Stain Few Polymorphonuclear Cells [facility] Gram Stain No Organism Seen [facility] Sputum specimen (specimen) SPUTUM / Unknown 02/17/2014 5:24 PM MANAGER HEMATOLOGY 02/17/2014 9:17 PM MANAGER HEMATOLOGY Narrative [facility] - 02/20/2014 11:31 AM MANAGER HEMATOLOGY WilliamsSpecimen#[id number] Williams Loc/Rm/Bed: ICU/ICU/04 Gram Stains are routinely screened for the presence of Polymorphonuclear Cells. Historical Provider LAB - MICROBIOLOG Y ORDERABLES [address] [phone] * CULTURE MRSA (02/17/2014 3:16 PM MANAGER HEMATOLOGY) Culture MRSA Screen No Growth of Methicillin Resistant Staphylococcus aureus. [facility] Nasopharyngeal 02/17/2014 3: 16 PM MANAGER HEMATOLOGY 02/17/2014 9:07 PM MANAGER HEMATOLOGY Narrative [facility] - 02/19/2014 9:24 AM MANAGER HEMATOLOGY AndersonSpecimen#[id number] Williams Loc/Rm/Bed: ICU/ICU/04 Historical Provider LAB - MICROBIOLOG Y ORDERABLES [address] [phone] * CULTURE CSF+GRAM STAIN (02/17/2014 1:34 PM MANAGER HEMATOLOGY) Culture CSF No Growth at 1 week [facility] Spinal fluid (substance) 02/17/2014 1:34 PM MANAGER HEMATOLOGY 02/17/2014 9:13 PM MANAGER HEMATOLOGY Narrative [facility] - 02/25/2014 2:41 PM MANAGER HEMATOLOGY AndersonSpecimen#[id number] Williams Loc/Rm/Bed: ICU/ICU/04 Historical Provider LAB - [place]CRO[place] [address], [facility] [phone] * CULTURE AFB+SMEAR (02/17/2014 1:34 PM MANAGER HEMATOLOGY) Culture Acid Fast Bacilli No Growth of Acid Fast bacilli after 8 weeks. [facility] AFB Smear No Acid Fast bacilli seen on direct smear. [facility] Spinal fluid (substance) 02/17/2014 1:34 PM MANAGER HEMATOLOGY 02/17/2014 9:13 PM MANAGER HEMATOLOGY Narrative [facility] - 04/16/2014 1:44 PM MANAGER HEMATOLOGY AndersonSpecimen#[id number] Williams Loc/Rm/Bed: ICU/ICU/04 Historical Provider LAB - MICROBIOLOG Y ORDERABLES Performing Organization Address [facility] [place] [address], [facility] [phone] * CULTURE FUNGUS OTHER+FUNGUS SMEAR (02/17/2014 1:29 PM MANAGER HEMATOLOGY) Culture Fungus-Other No Growth Fungi. [facility] Fungus Smear No Fungi seen. [facility] Spinal fluid (substance) 02/17/2014 1:29 PM MANAGER HEMATOLOGY 02/17/2014 9:17 PM MANAGER HEMATOLOGY Narrative [facility] - 03/19/2014 2:13 PM MANAGER HEMATOLOGY AndersonSpecimen#[id number] Williams Loc/Rm/Bed: ICU/ICU/04 GI LAB Source: n Historical Provider LAB - [place]CRO[place] [address], [facility] [phone] Care Teams Edge Runner Relationship Specialty Start Date End Date Afshin Kirby, DO [address] [facility] [address] [place] [address] PCP - General 07/25/09
--- OUTSIDE RECORDS SUMMARY | 2024-05-11 00:14 | XMS_ITS | Clinical Summary ---
Author Organization [facility] [address] Address [address] [place] [address] Care Team Providers Care Esthetician Facialist Name Role Phone Afshin Kirby MD Primary Care Provider [phone] Allergies Active Allergy Reactions Criticality Noted Date [...] (08/24/2019): Added automatically from request for surgery [id number] Spinal stenosis, lumbar kenny on, with neurogenic claudication 08/24/2019 Overview (08/24/2019): Added automatically from request for surgery [id number] Chronic obstructive pulmonary disease 04/13/2014 Bronchial asthma [...] on file Legal Sex Male 7:43 PM COMPENSATION MANAGER Gender Identity Not on file Sexual Orientation [...] (231 lb 3.2 oz) 020 11:41 AM COMPENSATION MANAGER Height 180.3 cm (5' 11 ) 01/30/2020 11: 41 AM COMPENSATION MANAGER Body Mass Index 32.25 01/30/2020 11:41 AM COMPENSATION MANAGER Plan of Treatment Not on file Medical Devices Implanted Type Area Leases And Land Supervisor Device Identifier Shelf Expiration Date Model / Serial / Lot Neurostimulator Neurostimu lator Back Medtronic Neuro [id number] / / Bard [employer] [id number] Orquidea Delivery Kit Vena Cava Jugular Filter Embolization Nitinol Latex Free - [id number] Implanted:Qty: 1 on 10/12/2019 at [facility] [employer] 09/25/2022 [id number] / / [id number] Medtronic Sofamor Danek [id number] Infuse 18mm 26mm Absorbable Sponge Sterile Water Syringe Needle - [id number] Implanted:Qty: 1 on 10/13/2019 by Clarke Logan MD at [facility] N/A: Spine Lumbar Medtronic Inc 10/27/2020 [id number] / / [id number] Musculoskeletal Transplant [id number] Allograft; Chips; Frozen; Morselize .1-4 Mm Filler 30 Cc Bone Voi - [id number] - [id number] Implanted:Qty: 1 on 10/13/2019 by Clarke Logan MD at [facility] N/A: Spine Lumbar Musculoskeletal Transplant 08/13/2023 [id number] / [id number] / Allosource [id number] Crushed Chip Frozen Graft 90ml Bone Cancellous - [id number] - [id number] Implanted:Qty: 1 on 10/13/2019 by Clarke Logan MD at [facility] N/A: Spine Lumbar Allosource 07/21/2024 [id number] / [id number] / Allosource [id number] Crushed Chip Frozen Graft 90ml Bone Cancellous - [id number] - [id number] Implanted:Qty: 1 on 10/13/2019 by Clarke Logan MD at [facility] N/A: Spine Lumbar Allosource 07/19/2024 [id number] / [id number] / Depuy Spine [id number] Expedium 6.5mm 50mm Polyaxial Spine Screw Bone Titanium 5.5mm Xu - [id number] Implanted:Qty: 5 on 10/13/2019 by Clarke Logan MD at [facility] N/A: Spine Lumbar Depuy Spine [id number] / / Depuy Spine [id number] Expedium 6.5mm 55mm Polyaxial Spine Screw Bone Titanium 5.5mm Xu - [id number] Implanted:Qty: 3 on 10/13/2019 by Clarke Logan MD at [facility] N/A: Spine Lumbar Depuy Spine [id number] / / Depuy Spine [id number] Expedium 6.5mm 60mm Polyaxial Spine Screw Bone Titanium 5.5mm Xu - [id number] Implanted:Qty: 4 on 10/13/2019 by Clarke Logan MD at [facility] N/A: Spine Lumbar Depuy Spine [id number] / / Depuy Spine [id number] Expedium 7mm 55mm 1 Innie Polyaxial Spine Screw Bone Titanium - [id number] Implanted:Qty: 1 on 10/13/2019 by Clarke Logan MD at [facility] N/A: Spine Lumbar Depuy Spine [id number] / / Depuy Spine [id number] Expedium 7mm 60mm 1 Innie Polyaxial Spine Screw Bone Titanium - [id number] Implanted:Qty: 1 on 10/13/2019 by Clarke Logan MD at [facility] N/A: Spine Lumbar Depuy Spine [id number] / / Depuy Spine [id number] Expedium 7.5mm 50mm 1 Innie Polyaxial Spine Screw Bone Titanium - [id number] Implanted:Qty: 1 on 10/13/2019 by Clarke Logan MD at [facility] N/A: Spine Lumbar Depuy Spine [id number] / / Depuy Spine [id number] Expedium 7.5mm 55mm 1 Innie Polyaxial Spine Screw Bone Titanium - [id number] Implanted:Qty: 1 on 10/13/2019 by Clarke Logan MD at [facility] N/A: Spine Lumbar Depuy Spine [id number] / / Depuy Spine [id number] Expedium Viper 8mm 100mm Polyaxial Spine Sacral Alar Iliac Screw - [id number] Implanted:Qty: 2 on 10/13/2019 by Clarke Logan MD at [facility] N/A: Spine Lumbar Depuy Spine [id number] / / Depuy Spine [id number] Expedium 5.5mm 65mm Line Prebent Xu Spinal Titanium Nonsterile - [id number] Implanted:Qty: 1 on 10/13/2019 by Clarke Logan MD at [facility] N/A: Spine Lumbar Depuy Spine [id number] / / Depuy Spine [id number] Expedium 5.5mm 55mm Line Prebent Xu Spinal Titanium Nonsterile - [id number] Implanted:Qty: 1 on 10/13/2019 by Clarke Logan MD at [facility] N/A: Spine Lumbar Depuy Spine [id number] / / Depuy Spine [id number] Expedium 1 Inner Monoaxial Spine Screw Set Titanium - [id number] Implanted:Qty: 18 on 10/13/2019 by Clarke Logan MD at [facility] N/A: Spine Lumbar Depuy Spine [id number] / / Depuy Spine [id number] Viper 2 600mm Straight Xu Spinal Cocr - [id number] Implanted:Qty: 1 on 10/13/2019 by Clarke Logan MD at [facility] N/A: Spine Lumbar Depuy Spine [id number] / / Integra Lifesciences Navarro [id number] Duragen Plus 2x2in Patch Resorbable Suturable Cranial Dura Graft - [id number] Implanted:Qty: 1 on 10/13/2019 by Clarke Logan MD at [facility] N/A: Spine Lumbar Integra Lifesciences Navarro [id number] / / Medtronic SofVivasure Medical Danek [id number] Infuse 18mm 26mm Absorbable Sponge Sterile Water Syringe Needle - [id number] Implanted:Qty: 1 on 10/13/2019 by Clarke Logan MD at [facility] N/A: Spine Lumbar Medtronic Inc 10/27/2020 [id number] / / [id number] Explanted Type Area Leases And Land Supervisor Device Identifier Shelf Expiration Date Model / Serial / Lot Screws Explanted:Qty: 8 on 10/13/2019 by Clarke Logan MD at [facility] N/A: Spine Lumbar Depuy Synthes Spine Rods Explanted:Qty: 2 on 10/13/[address] [facility] N/A: Spine Lumbar Depuy Synthes Spine Crosslink Explanted:Qty: 1 on 10/13/[address] [facility] N/A: Spine Lumbar Depuy Synthes Spine Connectors Explanted:Qty: 8 on 10/13/[address] [facility] N/A: Spine Lumbar Depuy Synthes Spine Nuts Explanted:Qty: 8 on 10/13/[address] [facility] N/A: Spine Lumbar Depuy Synthes Spine Insurance [facility]CR HMO REF [facility] [place] [facility] Advance Directives For more information, please contact: [phone] * Full Code (Latest Code Status on File) Date Activated Date Inactivated Comments 10/13/2019 9:43 PM 10/21/2019 6:52 PM * Full Code Date Activated Date Inactivated Comments 10/12/2019 10:19 AM 10/12/2019 4:09 PM Care Teams Esthetician Facialist Relationship Specialty Start Date End Date Afshin Kirby MD [address] [facility] [address] [place] [address] PCP - General Internal Medicine 09/16/16
--- NOTE | 2024-05-11 06:36 | WPDHPUPDATE1 ---
History and Physical Update Update Date/Time: 05/11/24 06:36 History and Physical has been reviewed, including an updated exam of the patient. There are NO changes in the patient's condition. Risks, benefits, and alternatives have been discussed and questions answered. Patient agrees to proceed with procedure.
[2024-05-11 07:04] LABS: Glucose Point of Care 130 mg/dl (65-105)
--- NOTE | 2024-05-11 07:13 | WPDANESEPPF ---
Anes - Initial Pre Proc Eval Procedure: Operation Date: 05/11/24 08:30 Proposed Procedures p Cystoscopy, Right Ureteroscopy, Right Ureteral Stent Removal with Right Retrograde Pyelography, Possible Ureteral Biopsy - Nathaniel Dunlap MD Date/Time: 05/11/24 07:13 Surgeon: Nathaniel Dunlap MD Pre Op Diagnosis: Right Ureteral Kidney Stone Patient Data Age: 73 Gender: M Height: 1.8 m Weight: 107 kg Allergies Allergy/AdvReac Type Severity Reaction Status Date / Time adhesive tape Allergy Intermediate SKIN TURNS Verified 05/04/24 10:22 RED, WELTS morphine AdvReac Severe Nausea and Verified 05/04/24 10:22 Vomiting Home Medications ?Medication ?Instructions ?Recorded ?Confirmed ?Type melatonin 10 mg tablet 10 mg PO HS PRN Insomnia 10/09/22 05/04/24 History naloxone 4 mg/actuation nasal 4 mg intranasal Q3M PRN opioid 10/12/22 05/04/24 Rx spray (Narcan) overdose #2 ea calcium carbonate (Tums) 200 mg PO BID PRN Indigestion 04/08/23 05/04/24 History citalopram 20 mg tablet 20 mg PO HS 04/08/23 05/04/24 History rosuvastatin 5 mg tablet 5 mg PO QAM #90 tabs 06/13/23 05/04/24 Rx baclofen 10 mg tablet 10 mg PO TID PRN back pain #135 02/28/24 05/04/24 Rx tabs lisinopril 20 mg tablet 20 mg PO QAM #90 tabs 02/28/24 05/04/24 Rx celecoxib 100 mg capsule 100 mg PO Q12H 03/27/24 05/04/24 History hydrocodone 5 mg-acetaminophen 325 1 - 2 tablet PO Q6H PRN pain #20 03/30/24 05/04/24 Rx mg tablet tabs duloxetine 30 mg capsule,delayed 30 mg PO DAILY 05/04/24 05/04/24 History release gabapentin 100 mg capsule 300 mg PO Q12H 05/04/24 05/04/24 History Laboratory Tests 05/11/24 07:02 POC Capillary Glucose 130 H mg/dl (65-105) Patient hx anesthesia problems: none Family hx anesthesia problems: none Results Review: All pre-operative results and documents have been reviewed as part of the pre-operative evaluation. [facility] Past Medical History Medical History Hypertension Hyperlipidemia Dorsalgia Hx of colonic polyp History of pulmonary embolism MILO (obstructive sleep apnea) Type 2 diabetes mellitus Other pulmonary embolism without acute cor pulmonale Surgical History Surgical History History of knee surgery RT arthroplasty History of back surgery Family History Family History Father , @67 from [place] Acute myocardial infarction Patient's father is Diabetes mellitus Mother Family history of malignant neoplasm Patient's mother is Family history of arthritis Sibling Malignant neoplasm of prostate Social History Social History Smoking packs per day: 1 Smoking cigarettes per day: 20.0 Years smoked: 35 Smoking pack-years: 35.00 Smoking status: Former smoker Tobacco type: cigarettes Second hand tobacco smoke exposure: No Smoking end date: 03/29/89 Alcohol intake: never Substance use: never Substance use type: marijuana Other substance usage details: smokes nightly Lack of Transportation: No Lack of Food: Never True Current Housing: I Have Housing Concerned About Future Housing: No Difficulty Paying Gas/Electric Bills: No Difficulty Paying for Meds: No Currently Unemployed: No Education: Trade/Vocational Certificate Difficulty w/ Childcare or Family Care: No Living arrangements: with family Additional living arrangements comments: Occupation/Education: retired Gender identity (if verbalized by the patient): Male Sexual Orientation (if Verbalized by the Patient): Straight or Heterosexual Spiritual care concerns: No Anes - Eval Final PreProcedure Day of Procedure 05/11/24 07:13 Patient weight: obese Heart: regular rate and rhythm Lungs: clear to auscultation Airway: Mallampati scale class II Neurological: alert and oriented Last oral intake: >/= 8 hours ASA classification: III Emergent: no Anesthetic plan: proceed Anesthesia type and monitoring: general LMA and standard monitoring Results Review: All pre-operative results and documents have been reviewed as part of the pre-operative evaluation. Informed Consent: The patient's anesthetic plan and its attendant risks and benefits were discussed with the patient/family/POA. Questions were solicited and answers provided to the satisfaction of the patient/family/POA.
[2024-05-11] MEDS: LACTATED RINGERS 1,000 ML 30 ML IV CONT (07:47)
[2024-05-11] MEDS: ceFAZolin 2 GM/D5W 50 ML 2 GM/50 ML BAG IVPB (08:24)
--- NOTE | 2024-05-11 08:48 | SUR.OPER ---
cystology specimens x 2 taken to lab by ANASTASIA Paul, specimens given to
[2024-05-11] MEDS: LIDOCAINE 2% GEL UROJET 10 ML PKG MUCOUS MEM (08:57)
--- NOTE | 2024-05-11 09:08 | W.PM.PROC2 ---
Procedure Note - Detailed Date of Procedure 05/11/24 Pre-op Diagnosis Right Ureteral Stricture Post-op Diagnosis Same Procedure Performed Cystoscopy, right ureteral stent removal, right ureteroscopy with biopsy, right retrograde pyelography, right ureteral stent replacement Surgeon Nathaniel Dunlap MD Anesthesia General Description of Procedure Patient is brought to the operative suite was prepped draped routine sterile fashion while in dorsal lithotomy position after the uneventful induction of a general LMA anesthetic. Cystoscopy was undertaken with a 21 F rigid cystoscope. Tip of the indwelling stent is grasped and brought to the external urethral meatus. A 0.035 in glidewire was advanced into the right renal pelvis and the distal ureter was dilated with an 8 F 10 F dilator. Urine had been collected from the bladder for cytology. A [place] catheter is placed in the right mid to distal ureter and washings were obtained for cytology from right ureter. I used a brush biopsy to brush the area prior narrowing. Retrograde pyelography was then undertaken with a [place] catheter and there appears to be still concentric narrowing at that site, although not as pronounced. Area in question is below the point where the right ureter crosses the iliac vessels, rising right at the lower edge of the sacrum. Ureteroscopy was undertaken with a digital flexible ureteral scope. Mucosa at that site is notably abnormal with hyperemia, in contrast to the remainder of the ureter and collecting system. Obtain some cold cup biopsies. I then replaced the 6 F ureteral stent. The patient tolerated the procedure well and was taken recovery room good condition. Drains Yes Packing No Pathology Yes Complications No immediate complications Disposition PACU
[2024-05-11 09:57] LABS: Glucose Point of Care 126 mg/dl (65-105)
== END 2024-05-11 10:40 | disposition home or self-care (01) ==
PROVIDERS: Visit Provider Urology
PROC: (CPT 52352; principal; 2024-05-11 08:30)
DX: N13.30 Unspecified hydronephrosis (principal); I10 Essential (primary) hypertension; J44.9 Chronic obstructive pulmonary disease, unspecified; E11.9 Type 2 diabetes mellitus without complications; G47.30 Sleep apnea, unspecified; F12.90 Cannabis use, unspecified, uncomplicated; E66.9 Obesity, unspecified; Z68.32 Body mass index [BMI] 32.0-32.9, adult; Z79.84 Long term (current) use of oral hypoglycemic drugs; Z98.890 Other specified postprocedural states; Z98.1 Arthrodesis status; Z87.891 Personal history of nicotine dependence; Z86.0100 Personal history of colon polyps, unspecified; Z86.711 Personal history of pulmonary embolism; Z86.718 Personal history of other venous thrombosis and embolism; Z80.42 Family history of malignant neoplasm of prostate; Z82.49 Family history of ischemic heart disease and other diseases of the circulatory system
CPT/HCPCS: 52354; 52332; 74420; 82948; 88108; 88305; 88342; C1769; C2617; J0690; J1100; J2003; J2405; J2704; J3010; J7120; Q9966